=== PATIENT | male | born 1940 | race Caucasian/White ===

== ENCOUNTER 2017-03-08 12:56 | Inpatient (IN) | payer MEDICARE, OTHER ==
[2017-03-08] VITALS (8 sets, daily range): BP systolic 109–124; BP diastolic 62–73
[~2017-03-08] VITALS: Ht 188 cm; Wt 114.4 kg
--- NOTE | 2017-03-08 13:21 | EKG ---
FACILITY: [facility] [place] PATIENT NAME: PANCHO CASON : [id number] MR: [id number] V: [id number] EXAM DATE: ORDERING PHYSICIAN: TREVIN VALENCIA TECHNOLOGIST: Test Reason : Blood Pressure : / mmHG Vent. Rate : 076 BPM Atrial Rate : 288 BPM P-R Int : 000 ms QRS Dur : 122 ms QT Int : 468 ms P-R-T Axes : 000 -84 064 degrees QTc Int : 526 ms Atrial fibrillation Left axis deviation Right bundle branch block Abnormal ECG When compared with ECG of 17-DEC-2016 11:17, Relatively unchanged, QTc is more prolonged Confirmed by MARGRET SCHULTE ([id number]) on 03/08/2017 5:11:13 PM Referred By: Confirmed By:MARGRET SCHULTE
--- NOTE | 2017-03-08 13:28 | ER Report ---
History and Physical Time Seen By MD: 13:00 Hx. of Stated Complaint: PATIENT WAS AT [facility] AND STATES THAT HE HAS BEEN SICK SINCE 03/05/17 HPI/ROS CHIEF COMPLAINT: Shortness of breath HISTORY OF PRESENT ILLNESS: Patient is a 76-year-old male who presents the ED with complaint of shortness of breath for the past 2 weeks. He was seen at the urgent care today and had some labs and imaging completed. He states that he was told that he had a low blood count and was advised to go to the emergency department. He states that he has had trouble with GI bleeding in the past. He states that his last episode was 4 months ago and was given 4 units of blood at that time per patient. 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 He also has a history of atrial fibrillation. He states that he has had a mild cough recently but states that the shortness of breath has been bothering him. He denies any chest pain. He has not noted any abdominal pain. He states he has not noted any black or bloody bowel movements currently. He states that he did notice blood in his stool previously with his GI bleeds. Patient states that he recently had his INR checked and it was normal at that time. He states that he has had issues with it being too high in the past. He states that he has been feeling weak recently. REVIEW OF SYSTEMS: Constitutional: No fever, no chills. Eyes: No discharge. ENT: No sore throat. Cardiovascular: No chest pain, no palpitations. Respiratory: See history of present illness. Gastrointestinal: See history of present illness. No abdominal pain, nausea, vomiting, diarrhea, constipation. Genitourinary: No hematuria. Musculoskeletal: No back pain. Skin: No rashes. Neurological: No headache. Allergies: Coded Allergies: propafenone (Verified Allergy, Unknown, 03/08/17) Home Meds Active Scripts Albuterol Sulfate 90 Mcg/Act (PROAIR HFA 90 MCG/ACT) 8.5 Gm Hfa.aer.ad, 1-2 PUFF IH 3-4XD, #3 INHALER 2 Refills Prov:CARLEY SPIVEY MD 02/08/17 Benazepril Hcl (BENAZEPRIL HCL) 10 Mg Tab, 1 TAB PO QDAY, #90 TAB 4 Refills Prov:CARLEY SPIVEY MD 12/28/16 Pantoprazole Sodium (PANTOPRAZOLE SODIUM) 40 Mg Tablet.dr, 40 MG PO QDAY for protect GI tract, #30 TAB Prov:NEHEMIAS POMPA MD 10/25/16 Reported Medications Carvedilol (CARVEDILOL) 25 Mg Tablet, 25 MG PO BID, #10 TAB 02/07/17 Warfarin Sodium (WARFARIN SODIUM) 5 Mg Tablet, 2.5 MG PO DAILY, TAB 12/17/16 Amiodarone Hcl (AMIODARONE HCL) 200 Mg Tablet, 200 MG PO DAILY 02/21/16 Oxygen (Oxygen) 2 L Inha, 3 L INH QHS 3 L at hs, and prn day at 2L 01/08/10 Reviewed Nurses Notes: Yes Old Medical Records Reviewed: Yes Hx Smoking: Yes (40yrs ago) Smoking Status: Former Smoker Exposure to Second Hand Smoke?: No Hx Substance Use Disorder: No Hx Alcohol Use: No Constitutional Vital Sign - Last 24 Hours 03/08/17 03/08/17 03/08/17 03/08/17 13:02 13:04 13:26 13:30 Temp 98.4 Pulse 74 67 Resp 24 20 B/P (MAP) 110/60 (77) 110/60 111/59 (76) Pulse Ox 94 97 O2 Delivery Room Air 03/08/17 03/08/17 03/08/17 03/08/17 13:56 14:00 14:26 14:30 Pulse 62 65 Resp 18 16 B/P (MAP) 123/67 (85) 130/70 (90) Pulse Ox 95 93 03/08/17 03/08/17 14:35 15:00 Pulse 68 Resp 18 B/P (MAP) 119/79 (92) Pulse Ox 92 Physical Exam General Appearance: The patient is alert, has no immediate need for airway protection and no signs of toxicity. Patient appears to be in no acute distress. Eyes: Pupils equal and round no pallor or injection. ENT, Mouth: Mucous membranes are moist. Respiratory: There are no retractions, lungs are clear to auscultation. Cardiovascular: Irregularly irregular. Normal rate. Gastrointestinal: Abdomen is soft and non tender, no masses, bowel sounds normal in all 4 quadrants. Neurological: Cranial nerves II through XII intact. Skin: Warm and dry, no rashes. Musculoskeletal: Neck is supple non tender. Extremities are nontender, nonswollen and have full range of motion. DIFFERENTIAL DIAGNOSIS: After history and physical exam differential diagnosis was considered for shortness of breath including but not limited to pulmonary infectious process, COPD, asthma, pulmonary embolus and congestive heart failure. Medical Decision Making Data Points Laboratory Hematology Test 03/08/17 00:00 03/08/17 13:20 03/08/17 13:43 Stool Occult Blood (IFOB) Positive (NEGATIVE) B-Type Natriuretic Peptide 859 pg/ml (0-100) Influenza Type A Antigen Negative (NEGATIVE) Influenza Type B Antigen Positive (NEGATIVE) Chemistry Test 03/08/17 00:00 03/08/17 13:20 03/08/17 13:43 Stool Occult Blood (IFOB) Positive (NEGATIVE) B-Type Natriuretic Peptide 859 pg/ml (0-100) Influenza Type A Antigen Negative (NEGATIVE) Influenza Type B Antigen Positive (NEGATIVE) EKG/Imaging EKG Interpretation 12 lead EKG: Rhythm: Atrial fibrillation, rate [address] segments: No acute ST changes identified. Monitor Interpretation: Atrial Fibrillation ED Course/Re-evaluation ED Course Reviewed all labs from urgent care. Patient does have a hemoglobin of 7.3. Review chest x-ray read from urgent care. States the patient is cardiomegaly with no acute infiltrates. He does have a CD with him as well. He does have an EKG from urgent care that reveals a rate controlled fibrillation. Will obtain an EKG, type and screen, Hemoccult, influenza screening. 03/08/2017 4:01:05 pm - initially discussed patient with Dr. Méndez, hospitalist about admission. However, there is concern the patient may need a IVC filter given his recurrent GI bleeds on Coumadin and history of PE. Discussed patient with hospitalist at [facility], Dr. Mai, who discussed that they would likely not putting IVC filter and the patient given his medical history and it appears it is anticoagulation is primarily for age fibrillation at this point. Discussed patient again with Dr. Méndez, hospitalist, who will accept patient under his care. Decision to Disposition Date: Mar 08, 2017 Decision to Disposition Time: 16:06 Depart Departure Latest Vital Signs Vital Signs Date Time Temp Pulse Resp B/P (MAP) Pulse Ox O2 Delivery O2 Flow Rate FiO2 03/08/17 15:00 119/79 (92) 03/08/17 14:35 68 18 92 03/08/17 13:04 98.4 Room Air Impression: Primary Impression: Anemia Additional Impressions: Afib Warfarin-induced coagulopathy Condition: Improved Disposition: Admitted from ER [employer]/PA consult with MD: Verbally MD Consult Note: Dr. Méndez, Hospitalist Dr. Funez, Hospitalist at [facility] Problem Qualifiers Primary Impression: Anemia Anemia type: unspecified type Qualified Codes: D64.9 - Anemia, unspecified Additional Impressions: Afib Atrial fibrillation type: chronic Qualified Codes: I48.2 - Chronic atrial fibrillation TREVIN VALENCIA PA-C Mar 08, 2017 13:28
[2017-03-08] MEDS ORDERED: FUROSEMIDE 20 MG TAB PO ONE (17:00)
[2017-03-08] MEDS ORDERED: PHYTONADIONE 10 MG/ML AMP SC ONE (17:25)
[2017-03-08] MEDS ORDERED: NS(*) 0.9% 500 ML BAG 500 ML ONE (17:32)
--- NOTE | 2017-03-08 18:09 | History & Physical ---
History of Present Illness History of Present Illness 76yo male with h/o GI bleed, atrial fibrillation, reduced EF HF, and remote PE who came to the ER from Urgent care for concern of anemia. He reports for the last 4 months, he has progressively become more SOB. He has been getting light headed with standing for the last couple of weeks. He has noticed LE edema for the last week. 3 days ago, he developed a cough. Today, his thought he had influenza, so she brought him to the ER. He denies cp/orthopnea/f/c/ diarrhea/nausea/vomiting/melena/bloody stools. In the last 20 months, he has been admitted 4 times for GI bleed and has received multiple infusions of FFP and 12 units of blood. His last admission was in September. He had EGD/ colonoscopy done at that time and there was no active bleeding, but old blood in the colon likely from sigmoid diverticulosis bleed. He was discharged off of all anticoagulation, but was restarted as an outpatient. He reportedly has had one PE in the past, possibly in 2006, but we have no studies consistent with that nor does MCR (the ER talked to the Hospitalist there). It appears that he is on warfarin for the atrial fibrillation. History Problems: (1) HTN (hypertension) Status: Chronic (2) COPD (chronic obstructive pulmonary disease) Status: Chronic (3) GERD (gastroesophageal reflux disease) Status: Chronic (4) H/O ventricular tachycardia Status: Chronic (5) Atrial fibrillation Status: Chronic (6) Obesity (BMI 30-39.9) Status: Chronic (7) Hx of pulmonary embolus Status: Chronic (8) Chronic renal disease, stage 3, moderately decreased glomerular filtration rate (GFR) between 30-59 mL/min/1.73 square meter Status: Chronic (9) History of automatic internal cardiac defibrillator (AICD) Status: Chronic (10) History of radiofrequency ablation procedure for cardiac arrhythmia Status: Chronic (11) Hx of transurethral resection of prostate Status: Resolved (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 (13) History of cholecystectomy Status: Resolved (14) GIB (gastrointestinal bleeding) Status: Acute Home Meds Active Scripts Benazepril Hcl (BENAZEPRIL HCL) 10 Mg Tab, 1 TAB PO QDAY, #90 TAB 4 Refills Prov:CARLEY SPIVEY MD 12/28/16 Pantoprazole Sodium (PANTOPRAZOLE SODIUM) 40 Mg Tablet.dr, 40 MG PO QDAY for protect GI tract, #30 TAB Prov:NEHEMIAS POMPA MD 10/25/16 Reported Medications Carvedilol (CARVEDILOL) 25 Mg Tablet, 25 MG PO BID, #10 TAB 02/07/17 Warfarin Sodium (WARFARIN SODIUM) 5 Mg Tablet, 2.5 MG PO DAILY, TAB 12/17/16 Amiodarone Hcl (AMIODARONE HCL) 200 Mg Tablet, 200 MG PO DAILY 02/21/16 Oxygen (Oxygen) 2 L Inha, 3 L INH QHS 3 L at hs, and prn day at 2L 01/08/10 Discontinued Scripts Albuterol Sulfate 90 Mcg/Act (PROAIR HFA 90 MCG/ACT) 8.5 Gm Hfa.aer.ad, 1-2 PUFF IH 3-4XD, #3 INHALER 2 Refills Prov:CARLEY SPIVEY MD 02/08/17 Allergies: Coded Allergies: propafenone (Verified Allergy, Unknown, 03/08/17) Patient History: FH: RI (myocardial infarction) FATHER MOTHER FH: diabetes mellitus BROTHER OR SISTER BROTHER OR SISTER BROTHER OR SISTER BROTHER OR SISTER BROTHER OR SISTER BROTHER OR SISTER CHILD Hx Smoking: Yes (40yrs ago) Smoking Status: Former Smoker Exposure to Second Hand Smoke?: No Caffeine Intake: Coffee Caffeine/Cups Per Day: 1 cup per day Hx Alcohol Use: No Hx Substance Use Disorder: No Review of Systems All Systems Reviewed/Normal: Yes, Except as Noted Exam Vital Signs Vital Signs Date Time Temp Pulse Resp B/P (MAP) Pulse Ox O2 Delivery O2 Flow Rate FiO2 03/08/17 16:40 99 Nasal Cannula 3.0 03/08/17 16:35 98.2 72 22 124/68 (86) General Appearance: Alert, Awake, No Acute Distress Neuro: No Gross deficits Eyes: PERRLA ENT: Moist Mucous Membranes Cardiovascular: Regular Rate and Rhythm Respiratory: Other (Diffuse upper airway sounds with insp/exp. Moving air fairly well to the bases.) GI: Abd Soft and Non-Tender Extremities: Edema (1-2+ pitting to knees) Integumentary: No Jaundice, No Cyanosis Medical Decision Making Data Points Item Value Date Time B-Type Natriuretic Peptide 859 pg/ml H 03/08/17 1320 Troponin I < 0.012 ng/ml 03/08/17 1012 Total Bilirubin 0.7 mg/dl 03/08/17 1012 Aspartate Amino Transf (AST/SGOT) 27 U/L 03/08/17 1012 Alanine Aminotransferase (ALT/SGPT) 39 U/L 03/08/17 1012 Alkaline Phosphatase 109 U/L 03/08/17 1012 Creatinine 1.20 mg/dl 03/08/17 1012 Creatinine 1.30 mg/dl H 12/27/16 1250 Hemoglobin 7.3 g/dL *L 03/08/17 1012 Hemoglobin 9.7 g/dL L 12/17/16 1108 Mean Corpuscular Volume 67.4 fL L 03/08/17 1012 Mean Corpuscular Volume 74.5 fL L 12/17/16 1108 Platelet Count 354 K/uL 12/17/16 1108 Platelet Count 291 K/uL 03/08/17 1012 Prothromb Time International Ratio 2.33 03/08/17 1012 D-Dimer Quantitative (PE/DVT) 0.31 ug/ml 03/08/17 1012 Stool Occult Blood (IFOB) Positive H 03/08/17 0000 Influenza Type A Antigen Negative 03/08/17 1343 Influenza Type B Antigen Positive 03/08/17 1343 EKG / Imaging EKG Interpretation Vent. Rate : 076 BPM Atrial Rate : 288 BPM P-R Int : 000 ms QRS Dur : 122 ms QT Int : 468 ms P-R-T Axes : 000 -84 064 degrees QTc Int : 526 ms Atrial fibrillation Left axis deviation Right bundle branch block Abnormal ECG When compared with ECG of 17-DEC-2016 11:17, Relatively unchanged, QTc is more prolonged Confirmed by MARGRET SCHULTE ([id number]) on 03/08/2017 5:11:13 PM Imaging CXR - done at Urgent Care and reported to be with acute abnormality. Trying to get the disc loaded into our system. Assessment and Plan Problems: (1) GIB (gastrointestinal bleeding) Status: Acute Assessment & Plan: He presented with progressive SOB over about 4 months, CHF exacerbation and a Hgb of 7.3. He has had 4 admissions for GI bleed in the last 20 months. He has received multiple infusions of FFP to reverse warfarin and has received 12 units of PRBC. His last admission in September, he had an EGD/ colonoscopy that showed no active bleeding, but old blood in the colon that was thought to be from a diverticular bleed. He was discharged off of warfarin, but was restarted as an outpatient. His INR is therapeutic today. He has no evidence of active bleeding, but continues to have microcytosis and is occult blood positive. He is on warfarin for atrial fibrillation, CHF and possibly for a remote PE (2006?). He has too high risk of bleeding complications to continue on warfarin. He will be given vitamin K, and transfused 2 units of PRBC. (2) CHF exacerbation Status: Acute Assessment & Plan: He presented with 4 months of progressive SOB, a week of LE edema, and a BNP that is increased from baseline. He has a EF of 40-45% from (per Dr. Spivey's clinic note). It is likely exacerbated by the anemia. He will get a dose of IV Lasix now and he will get it twice day. Will place him on a heart failure diet and check daily weights. BNP in the morning. Continue Coreg and Benazepril. (3) Influenza Status: Acute Assessment & Plan: He has had a cough for 3 days prior to admission. Influenza B positive. He will be started on renally dosed Tamiflu and placed in contact isolation. (4) COPD (chronic obstructive pulmonary disease) Status: Chronic Assessment & Plan: He has much upper airway sounds on exam secondary to having influenza. He is breathing fairly comfortably. Will not give steroids at this time, but will try DuoNeb and Albuterol prn. (5) Anemia Status: Acute Assessment & Plan: See above. (6) Chronic atrial fibrillation Status: Chronic Assessment & Plan: Rate controlled. He is chronically in atrial fibrillation. He is on amiodarone and Coreg, which will be continued. (7) Hx of pulmonary embolus Status: Chronic Assessment & Plan: See above. (8) History of automatic internal cardiac defibrillator (AICD) Status: Chronic (9) Chronic renal disease, stage 3, moderately decreased glomerular filtration rate (GFR) between 30-59 mL/min/1.73 square meter Status: Chronic (10) Obesity (BMI 30-39.9) Status: Chronic Copies to: ALAINA VALENCIA MD Venous Thromboembolism Antithrombotics Is Pt On Any Antithrombotics?: Yes Exam Sepsis Risk: No Definite Risk Problem Qualifiers (1) CHF exacerbation: Congestive heart failure type: systolic Qualified Codes: I50.23 - Acute on chronic systolic (congestive) heart failure (2) Anemia: Anemia type: unspecified type Qualified Codes: D64.9 - Anemia, unspecified MARGRET SCHULTE MD Mar 08, 2017 18:09
[2017-03-08] MEDS: ALBUTEROL/IPRATROPIUM 3 ML NEB NEB SCH (18:25)
--- NOTE | 2017-03-08 18:33 | Pharmacy Note ---
Pharmacy Note Date Provider Notified: Mar 08, 2017 Time Provider Notified: 17:30 Provider Notified: DR SCHULTE Note: Called and spoke to Dr Schulte about the order for 10mg SC vitamin K. I mentioned that this dose is usually reserved for patients with a major bleed/ INR over 10 and the results could be that the patient is warfarin resistant for a long period (more than [address] Schulte said that the patient was not currently bleeding but he was concerned that this would be an issue if not treated, and this patient will not be going back on warfarin therapy so resistance is not a concern. Dose was confirmed and no changes made. MARIA DE JESUS ROMERO Mar 08, 2017 18:33
[2017-03-08] MEDS: OSELTAMIVIR PHOS 30 MG CAP PO SCH (20:36)
[2017-03-08] MEDS: CARVEDILOL 25 MG TABLET PO SCH (20:36)
[2017-03-09 03:29] VITALS: BP 101/76
[2017-03-09] MEDS: FUROSEMIDE 20 MG/2 ML VIAL IVP SCH ×2 (05:00→14:20)
[2017-03-09] MEDS: ALBUTEROL/IPRATROPIUM 3 ML NEB NEB SCH ×3 (05:35→17:00)
[2017-03-09 05:59] LABS: PLATELET COUNT, AUTOMATED 246 K/uL (150-450)
[2017-03-09 06:09] LABS: INR 2.26
[2017-03-09 07:17] VITALS: BP 127/74
[2017-03-09] MEDS: PANTOPRAZOLE SOD 40 MG TABEC PO SCH (08:55)
[2017-03-09] MEDS: BENAZEPRIL HCL 10 MG TAB PO SCH (08:55)
[2017-03-09] MEDS: CARVEDILOL 25 MG TABLET PO SCH ×2 (08:55→21:00)
[2017-03-09] MEDS: AMIODARONE 200 MG TAB PO SCH (08:55)
[2017-03-09] MEDS: OSELTAMIVIR PHOS 30 MG CAP PO SCH ×2 (08:55→21:04)
[2017-03-09 09:24] VITALS: Ht 188 cm; Wt 114.4 kg
[2017-03-09] MEDS ORDERED: PHYTONADIONE 5 MG TAB PO ONE (10:15)
[2017-03-09 10:41] VITALS: BP 113/67
--- NOTE | 2017-03-09 11:24 | RADIOLOGY IMAGING REPORT ---
FACILITY: [facility] [place] PATIENT NAME: Shaggy Roland : 1940 MR: [id number] V: [id number] EXAM DATE: ORDERING PHYSICIAN: LEIGH ANN POMPA TECHNOLOGIST: Location: [facility] Patient: Shaggy Roland : 1940 Visit/Account:[id number] Date of Sevice: 03/09/2017 Exam type: CHEST SINGLE AP History: Cough/dyspnea/wheezing Comparison: December 17, 2016. Findings: Cardiac silhouette is moderately enlarged but unchanged. There is a cardiac pacemaker/AICD device pr esent. Surgical clips present left upper quadrant abdomen. There is thick band of consolidation in the right lung base consistent with atelectasis. Left lung base not ideally visualized due to overla pping soft tissue. There appears to been overall increase in interstitial markings of the lungs whic h could be related to interstitial pneumonia versus pulmonary edema. IMPRESSION: 1. Cardiomegaly unchanged Overall increase in the interstitial markings throughout the lungs which may be secondary to intersti tial pneumonia versus pulmonary edema Thick band of atelectasis in the right lung base Report Dictated By: Luma Mirza MD at 03/09/2017 11:18 AM Report E-Signed By: Luma Mirza MD at 03/09/2017 11:20 AM WSN:[email or web address]
--- NOTE | 2017-03-09 14:02 | Hospitalist Progress Note ---
Subjective Progress Notes Subjective He reports some persistent congestion/cough/wheezes. Physical Exam Vital Signs Date Time Temp Pulse Resp B/P (MAP) Pulse Ox O2 Delivery O2 Flow Rate FiO2 03/09/17 11:21 64 16 03/09/17 11:08 93 High-Flow Nasal Cannula 3.0 03/09/17 10:41 97.9 113/67 (82) Intake and Output 03/10/17 07:00 Intake Total 480 ml Output Total 240 ml Balance 240 ml Intake Oral 480 ml Output Urine Total 240 ml # Voids 3 # Bowel Movements 1 General Appearance: Alert, Awake Neuro: No Gross deficits ENT: Oropharynx Clear Cardiovascular: Other (Irregular distant tones) Respiratory: Other (few rales at bases with scattered rhonchi and bilateral expiratory wheezes) Chest: No Tenderness GI: Soft and Non-Tender (obese) Extremities: Warm, Perfused, Edema (1+ both LE) Psych: Alert & Oriented X3 Result Diagram: 03/09/17 0540 03/09/17 0540 Monitor Interpretation: Atrial Fibrillation Assessment and Plan Problems: (1) GIB (gastrointestinal bleeding) Status: Acute Assessment & Plan: He presented with progressive SOB over about 4 months, probable CHF exacerbation, heme positive stool, and a Hgb of 7.3. He has had 4 admissions for GI bleed in the last 20 months. He has received multiple infusions of FFP to reverse warfarin and has now received 14 units of PRBC. His last admission in September, he had an EGD/colonoscopy that showed no active bleeding, but old blood in the colon that was thought to be from a diverticular bleed. He was discharged off of warfarin, but was restarted as an outpatient. His INR was therapeutic at time of admit. He has no evidence of active/ongoing bleeding, but continues to have microcytosis and is occult blood positive. He is on warfarin for atrial fibrillation, CHF, and possibly for a remote PE (2006 - but no documentation of this). He has a very high risk of bleeding complications if he remains on warfarin. He has been given vitamin K 10mg SQ, but INR is still 2.25. Will give an additional 5mg PO today. Watch INR. I don' t believe he should be continued on warfarin at this point. Will plan on keeping him off warfarin and allow him to discuss this with his primary care physician and cardiology. (2) CHF exacerbation Status: Acute Assessment & Plan: He presented with 4 months of progressive SOB, a week of LE edema, and a BNP that is increased from baseline. He has a EF of 40-45% from (per Dr. Edmonds's clinic note). It is likely exacerbated by the anemia. He will continue on IV Lasix 20mg twice a day. He is on a heart failure diet and daily weights. Continue Coreg and Benazepril. (3) Influenza Status: Acute Assessment & Plan: He has had a cough for 3 days prior to admission. Influenza B positive. He is on Tamiflu 30mg BID and in contact isolation. (4) COPD (chronic obstructive pulmonary disease) Status: Chronic Assessment & Plan: He has much upper airway sounds on exam secondary to having influenza and possibly fluid status. Will try DuoNeb and Albuterol prn. Will also diurese as he tolerates. (5) Anemia Status: Acute Assessment & Plan: See above. (6) Chronic atrial fibrillation Status: Chronic Assessment & Plan: Rate controlled. He is chronically in atrial fibrillation. He is on amiodarone and Coreg. Warfarin will be stopped as noted above. (7) Hx of pulmonary embolus Status: Chronic Assessment & Plan: No documentation can be found regarding this. If he has had only one episode, he would be given a trial off warfarin. The warfarin will be stopped as noted above. (8) History of automatic internal cardiac defibrillator (AICD) Status: Chronic (9) Chronic renal disease, stage 3, moderately decreased glomerular filtration rate (GFR) between 30-59 mL/min/1.73 square meter Status: Chronic Assessment & Plan: Creatinine is stable at 1.2 today. (10) Obesity (BMI 30-39.9) Status: Chronic Exam Sepsis Risk: No Definite Risk Problem Qualifiers (1) CHF exacerbation: Congestive heart failure type: systolic Qualified Codes: I50.23 - Acute on chronic systolic (congestive) heart failure (2) Anemia: Anemia type: unspecified type Qualified Codes: D64.9 - Anemia, unspecified LEIGH ANN POMPA MD Mar 09, 2017 14:02
[2017-03-09 16:08] VITALS: BP 112/67
[2017-03-09 19:54] VITALS: BP 104/62
[2017-03-09] MEDS: ALBUTEROL 2.5 MG/3 ML NEB NEB PRN (21:18)
[2017-03-10 02:11] VITALS: BP 80/53
[2017-03-10] MEDS: ALBUTEROL/IPRATROPIUM 3 ML NEB NEB SCH ×3 (05:07→17:04)
[2017-03-10 05:54] LABS: PLATELET COUNT, AUTOMATED 222 K/uL (150-450)
[2017-03-10 06:01] LABS: INR 1.49
[2017-03-10 08:05] VITALS: BP 104/57
[2017-03-10] MEDS: AMIODARONE 200 MG TAB PO SCH (08:30)
[2017-03-10] MEDS: CARVEDILOL 25 MG TABLET PO SCH ×2 (08:30→21:10)
[2017-03-10] MEDS: PANTOPRAZOLE SOD 40 MG TABEC PO SCH (08:30)
[2017-03-10] MEDS: OSELTAMIVIR PHOS 30 MG CAP PO SCH ×2 (08:30→21:10)
[2017-03-10] MEDS: BENAZEPRIL HCL 10 MG TAB PO SCH (08:30)
--- NOTE | 2017-03-10 11:21 | Antimicrobial Stewardship ---
Antimicrobial Stewardship MD Service: Hospitalist Indications: Other (GIB) Antimicrobial Allergies None known Antimicrobial Used Tamiflu 30 mg PO twice daily started upon admission. Duration of Therapy: 5 Days Start Date: Mar 08, 2017 Height (Calculated Centimeters: [phone] Weight (Calculated Kilograms): 117.027 Tolerating Oral Fluids: Yes Able to Absorb PO Meds: Yes Taking Other Meds PO: Yes Afebrile > 24 hrs: Yes Comments Influenza A positive; 03/08/17 Tamiflu 30 mg PO twice daily, renal dosing. ERROL PEREZ Mar 10, 2017 11:21
--- NOTE | 2017-03-10 14:09 | Medical Nutrition Therapy ---
Nutrition Anthropometrics Height (Inches): 74.00 Height (Calculated Centimeters: [phone] Weight (Pounds): 258 Weight (Calculated Kilograms): 117.027 BMI Calculated: 33.38 Jose Nutrition Score: Adequate Jose Nutrition Risk Score: 18 Dietary Referral Nutrition Risk Factors: Nutrition Risk Comment: Physical Findings Physical Appearance: Obese BMI 30-39 Skin Appearance Skin Appearance: Edema Edema Location Modifier: Both Edema Location: Lower Extremity Type of Edema: Degree of Edema: 1+ Gastrointestinal Symptoms GI Symtoms: Blood in Stool Tube Present: Bowel Sounds: Recent Bowel Pattern: Stool Characteristics: Nutritional Diagnosis Nutritional Risk Acuity 2: CHF w/Complication Nutritional Risk Acuity 3: GI Bleed Past Medical History: CHF, HTN, GERD, CKD- stage 3, COPD, cholecystectomy, a-fib Nutritional Acuity: 2-Moderate Nutrition Diagnosis: Decreased Nutrient Needs, Altered GI Function Nutrition Etiology: Physiological Causes Nutrition Problem/Etiology/Sym: Altered GI function r/t hx of GI bleed AEB occult blood positive and microcytosis Decreased Na/fluid needs r/t CHF AEB 2+ pitting LE edema Energy Requirement: 2220 (Cheek Leonard Adj.) Protein Requirement: 117 (1 g/kg) Fluid Requirement: 2000 (20 ml/kg) Diet Type: CHF Diet, Fluid Restricted Nutrition Intervention: Cont diet as ordered, Encourage intake Drug: Diuretics Drug/Nutrition Recommendations: Check Serum K+ Nutrition Monitoring & Eval RD Patient Assessment Time: [address] Assessment Type: RD Assessment Patient Nutrition Acuity: 2-Moderate Follow Up Date: Mar 13, 2017 Nutritional Comment: 03/09 Pt admitted for CHF complication and SOB x 2 weeks. Pt has hx of GI bleeds. No current evidence of an active bleed but he is occult blood positive. Also found to have influenza B. Pt is taking K+ depleting diuretic. K+ WNL. Other notable labs include very low Hgb 8.9, Hct 29, alb 2.9, and Ca 7.3. Pt has had chronic use of warfarin which has been discontinued due to risk of GI bleed. Pt on CHF diet/fluid restriction. Pt had 100% of reg portion dinner last night. Will continue to monitor labs, intake, etc. 03/10 Pt changed to KELSEY with 100% intake of regular portions. Pt down 2 lbs. in one day. Most likley due to lasix and edema resolving from 2+ to 1+. Lasix was discontinued this morning. Notable labs include low H/H, total pro 6.2, and alb 2.6. Will continue to monitor labs, intakes, etc. JOSÉ BOLAÑOS Mar 10, 2017 12:18
[2017-03-10 14:42] VITALS: BP 116/67
--- NOTE | 2017-03-10 16:51 | Hospitalist Progress Note ---
Subjective Progress Notes Subjective The patient denies new complaints. Physical Exam Vital Signs Date Time Temp Pulse Resp B/P (MAP) Pulse Ox O2 Delivery O2 Flow Rate FiO2 03/10/17 14:42 98.0 70 20 116/67 (83) 92 Nasal Cannula 3.5 Intake and Output 03/11/17 07:00 Intake Total 1240 ml Output Total 850 ml Balance 390 ml Intake Oral 1240 ml Output Urine Total 850 ml General Appearance: Alert, Awake, No Acute Distress Neuro: No Gross deficits Cardiovascular: Other (Irregularly irregular.) Respiratory: Clear to Auscultation GI: Soft and Non-Tender Extremities: Warm, Perfused Psych: Appropriate Mood & Affect Result Diagram: 03/10/1752303/10/17523 Monitor Interpretation: Atrial Fibrillation Assessment and Plan Problems: (1) GIB (gastrointestinal bleeding) Status: Acute Assessment & Plan: He presented with progressive SOB over about 4 months, probable CHF exacerbation, heme positive stool, and a Hgb of 7.3. He has had 4 admissions for GI bleed in the last 20 months. He has received multiple infusions of FFP to reverse warfarin and has now received 14 units of PRBC. His last admission in September, he had an EGD/colonoscopy that showed no active bleeding, but old blood in the colon that was thought to be from a diverticular bleed. He was discharged off of warfarin, but was restarted as an outpatient. His INR was therapeutic at time of admit. He has no evidence of active/ongoing bleeding, but continues to have microcytosis and is occult blood positive. He is on warfarin for atrial fibrillation, CHF, and possibly for a remote PE (2006 - but no documentation of this). He has a very high risk of bleeding complications if he remains on warfarin. He was given vitamin K 10mg SQ, but INR was still 2.25. He was given an additional 5mg PO 03/09. INR today 1.49. Will plan on keeping him off warfarin and allow him to discuss this with his primary care physician and cardiology. (2) CHF exacerbation Status: Acute Assessment & Plan: He presented with 4 months of progressive SOB, a week of LE edema, and a BNP that is increased from baseline. He has a EF of 40-45% from (per Dr. Edmonds's clinic note). It is likely exacerbated by the anemia. He will continue on IV Lasix 20mg twice a day. He is on a heart failure diet and daily weights. Continue Coreg and Benazepril. (3) Influenza Status: Acute Assessment & Plan: He has had a cough for 3 days prior to admission. Influenza B positive. He is on Tamiflu 30mg BID and in contact isolation. (4) COPD (chronic obstructive pulmonary disease) Status: Chronic Assessment & Plan: He has much upper airway sounds on exam secondary to having influenza and possibly fluid status. Will try DuoNeb and Albuterol prn. Will also diurese as he tolerates. (5) Anemia Status: Acute Assessment & Plan: See above. Hgb 8.7 today. Repeat tomorrow. May need to transfuse an additional 2 units if this does not improve. Will start iron. (6) Chronic atrial fibrillation Status: Chronic Assessment & Plan: Rate controlled. He is chronically in atrial fibrillation. He is on amiodarone and Coreg. Warfarin will be stopped as noted above. (7) Hx of pulmonary embolus Status: Chronic Assessment & Plan: No documentation can be found regarding this. If he has had only one episode, he would be given a trial off warfarin. The warfarin will be stopped as noted above. (8) History of automatic internal cardiac defibrillator (AICD) Status: Chronic (9) Chronic renal disease, stage 3, moderately decreased glomerular filtration rate (GFR) between 30-59 mL/min/1.73 square meter Status: Chronic Assessment & Plan: Creatinine is stable at 1.2 today. (10) Obesity (BMI 30-39.9) Status: Chronic Time Spent on Plan of Care: < 30 min Exam Sepsis Risk: No Definite Risk Problem Qualifiers (1) CHF exacerbation: Congestive heart failure type: systolic Qualified Codes: I50.23 - Acute on chronic systolic (congestive) heart failure (2) Anemia: Anemia type: unspecified type Qualified Codes: D64.9 - Anemia, unspecified NEHEMIAS POMPA MD Mar 10, 2017 16:51
[2017-03-10] MEDS: POLYSACCHARIDE IRON COM 150 MG PO SCH (17:01)
[2017-03-10 21:09] VITALS: BP 117/66
[2017-03-11] VITALS (11 sets, daily range): BP systolic 111–133; BP diastolic 54–86
[2017-03-11] MEDS: ALBUTEROL/IPRATROPIUM 3 ML NEB NEB SCH ×3 (05:29→17:29)
[2017-03-11 06:43] LABS: PLATELET COUNT, AUTOMATED 250 K/uL (150-450)
[2017-03-11 07:06] LABS: INR 1.15
[2017-03-11] MEDS: OSELTAMIVIR PHOS 30 MG CAP PO SCH ×2 (08:31→21:18)
[2017-03-11] MEDS: PANTOPRAZOLE SOD 40 MG TABEC PO SCH (08:33)
[2017-03-11] MEDS: AMIODARONE 200 MG TAB PO SCH (08:34)
[2017-03-11] MEDS: BENAZEPRIL HCL 10 MG TAB PO SCH (08:34)
[2017-03-11] MEDS: CARVEDILOL 25 MG TABLET PO SCH ×2 (08:35→21:17)
[2017-03-11] MEDS: POLYSACCHARIDE IRON COM 150 MG PO SCH ×2 (08:35→16:20)
--- NOTE | 2017-03-11 08:55 | Hospitalist Progress Note ---
Subjective Progress Notes Subjective Feeling better today. Physical Exam Vital Signs Date Time Temp Pulse Resp B/P (MAP) Pulse Ox O2 Delivery O2 Flow Rate FiO2 03/11/17 08:21 95 High-Flow Nasal Cannula 5.0 03/11/17 06:50 97.7 70 24 120/70 (87) General Appearance: Alert, Awake, No Acute Distress, Afebrile Neuro: No Gross deficits Eyes: PERRLA Cardiovascular: Other (Irregularly irregular.) Respiratory: Other (Scattered rhonchi with wheezing. Better air movement today. ) Extremities: Warm, Perfused Psych: Appropriate Mood & Affect Result Diagram: 03/11/1761003/11/17610 Monitor Interpretation: Atrial Fibrillation Assessment and Plan Problems: (1) GIB (gastrointestinal bleeding) Status: Acute Assessment & Plan: He presented with progressive SOB over about 4 months, probable CHF exacerbation, heme positive stool, and a Hgb of 7.3. He has had 4 admissions for GI bleed in the last 20 months. He has received multiple infusions of FFP to reverse warfarin and has now received 14 units of PRBC. His last admission in September, he had an EGD/colonoscopy that showed no active bleeding, but old blood in the colon that was thought to be from a diverticular bleed. He was discharged off of warfarin, but was restarted as an outpatient. His INR was therapeutic at time of admit. He has no evidence of active/ongoing bleeding, but continues to have microcytosis and is occult blood positive. He is on warfarin for atrial fibrillation, CHF, and possibly for a remote PE (2006 - but no documentation of this). He has a very high risk of bleeding complications if he remains on warfarin. He was given vitamin K 10mg SQ, but INR was still 2.25. He was given an additional 5mg PO 03/09. INR today 1.1. Will plan on keeping him off warfarin and allow him to discuss this with his primary care physician and cardiology. (2) CHF exacerbation Status: Acute Assessment & Plan: He presented with 4 months of progressive SOB, a week of LE edema, and a BNP that is increased from baseline. He has a EF of 40-45% from (per Dr. Edmonsd's clinic note). It is likely exacerbated by the anemia. He will continue on IV Lasix 20mg twice a day. He is on a heart failure diet and daily weights. Continue Coreg and Benazepril. (3) Influenza Status: Acute Assessment & Plan: He has had a cough for 3 days prior to admission. Influenza B positive. He is on Tamiflu 30mg BID and in contact isolation. (4) COPD (chronic obstructive pulmonary disease) Status: Chronic Assessment & Plan: He has much upper airway sounds on exam secondary to having influenza and possibly fluid status. Will try DuoNeb and Albuterol prn. Will also diurese as he tolerates. (5) Anemia Status: Acute Assessment & Plan: See above. Hgb decreased to 8.5 today. Will transfuse an additional 2 units. (6) Chronic atrial fibrillation Status: Chronic Assessment & Plan: Rate controlled. He is chronically in atrial fibrillation. He is on amiodarone and Coreg. Warfarin will be stopped as noted above. (7) Hx of pulmonary embolus Status: Chronic Assessment & Plan: No documentation can be found regarding this. If he has had only one episode, he would be given a trial off warfarin. The warfarin will be stopped as noted above. (8) History of automatic internal cardiac defibrillator (AICD) Status: Chronic (9) Chronic renal disease, stage 3, moderately decreased glomerular filtration rate (GFR) between 30-59 mL/min/1.73 square meter Status: Chronic Assessment & Plan: Creatinine is stable at 1.1 today. (10) Obesity (BMI 30-39.9) Status: Chronic (11) Hypocalcemia Status: Acute Assessment & Plan: Corrected calcium is a bit low. Will replace. Time Spent on Plan of Care: < 30 min Exam Sepsis Risk: No Definite Risk Problem Qualifiers (1) CHF exacerbation: Congestive heart failure type: systolic Qualified Codes: I50.23 - Acute on chronic systolic (congestive) heart failure (2) Anemia: Anemia type: unspecified type Qualified Codes: D64.9 - Anemia, unspecified NEHEMIAS POMPA MD Mar 11, 2017 08:55
[2017-03-11] MEDS ORDERED: CALCIUM CL 100 MG/1 ML SYR 1,000 MG in NS(*) 0.9% 100 ML BAG 100 ML IVPB ONE (09:30)
[2017-03-11] MEDS ORDERED: NS(*) 0.9% 500 ML BAG 500 ML IV PRN (10:00)
[2017-03-12] MEDS: ALBUTEROL 2.5 MG/3 ML NEB NEB PRN ×3 (02:03→20:42)
[2017-03-12 03:21] VITALS: BP 117/68
[2017-03-12] MEDS ORDERED: FUROSEMIDE 20 MG/2 ML VIAL IVP ONE (03:35)
[2017-03-12] MEDS: ALBUTEROL/IPRATROPIUM 3 ML NEB NEB SCH ×3 (05:40→18:01)
[2017-03-12 06:05] LABS: PLATELET COUNT, AUTOMATED 221 K/uL (150-450)
[2017-03-12 07:17] VITALS: BP 116/63
[2017-03-12] MEDS: OSELTAMIVIR PHOS 30 MG CAP PO SCH ×2 (08:24→21:15)
[2017-03-12] MEDS: AMIODARONE 200 MG TAB PO SCH (08:24)
[2017-03-12] MEDS: PANTOPRAZOLE SOD 40 MG TABEC PO SCH (08:24)
[2017-03-12] MEDS: CARVEDILOL 25 MG TABLET PO SCH ×2 (08:24→21:15)
[2017-03-12] MEDS: POLYSACCHARIDE IRON COM 150 MG PO SCH ×2 (08:24→16:21)
[2017-03-12] MEDS: BENAZEPRIL HCL 10 MG TAB PO SCH (08:24)
[2017-03-12] MEDS: FUROSEMIDE 20 MG/2 ML VIAL IVP SCH ×2 (10:27→13:50)
--- NOTE | 2017-03-12 10:34 | Hospitalist Progress Note ---
Subjective Progress Notes Subjective He got SOB o/n and was given Lasix for concern of volume overload related to the transfusion. No reported cp. Still a bit SOB. Physical Exam Vital Signs Date Time Temp Pulse Resp B/P (MAP) Pulse Ox O2 Delivery O2 Flow Rate FiO2 03/12/17 08:17 92 High-Flow Nasal Cannula 3.0 03/12/17 08:09 68 03/12/17 08:06 20 03/12/17 07:17 97.8 116/63 (80) Intake and Output 03/13/17 07:00 Output Total 550 ml Balance -550 ml Output Urine Total 550 ml General Appearance: Alert, Awake, No Acute Distress Respiratory: Clear to Auscultation Extremities: Edema (trace pitting in shins bilaterally) Result Diagram: 03/12/1752703/12/17527 Monitor Interpretation: Atrial Fibrillation Assessment and Plan Problems: (1) GIB (gastrointestinal bleeding) Status: Acute Assessment & Plan: He presented with progressive SOB over about 4 months, probable CHF exacerbation, heme positive stool, and a Hgb of 7.3. He has had 4 admissions for GI bleed in the last 20 months. He has received multiple infusions of FFP to reverse warfarin and has now received 14 units of PRBC. His last admission in September, he had an EGD/colonoscopy that showed no active bleeding, but old blood in the colon that was thought to be from a diverticular bleed. He was discharged off of warfarin, but was restarted as an outpatient. His INR was therapeutic at time of admit. He has no evidence of active/ongoing bleeding, but continues to have microcytosis and is occult blood positive. He is on warfarin for atrial fibrillation, CHF, and possibly for a remote PE (2006 - but no documentation of this). He has a very high risk of bleeding complications if he remains on warfarin. He was given vitamin K 10mg SQ, but INR was still 2.25. He was given an additional 5mg PO 03/09. INR 1.15, most recently. Will plan on keeping him off warfarin and allow him to discuss this with his primary care physician and cardiology. (2) CHF exacerbation Status: Acute Assessment & Plan: He presented with 4 months of progressive SOB, a week of LE edema, and a BNP that is increased from baseline. He has a EF of 40-45% from (per Dr. Edmonds's clinic note). It is likely exacerbated by the anemia and then blood transfusions. He will be restarted on IV Lasix 20mg twice a day. He is on a heart failure diet and daily weights. Continue Coreg and Benazepril. (3) Influenza Status: Acute Assessment & Plan: He has had a cough for 3 days prior to admission. Influenza B positive. He is on Tamiflu 30mg BID and in contact isolation. (4) COPD (chronic obstructive pulmonary disease) Status: Chronic Assessment & Plan: He has much upper airway sounds on exam secondary to having influenza and possibly fluid status. Will try DuoNeb and Albuterol prn. Will also diurese as he tolerates. (5) Anemia Status: Acute Assessment & Plan: See above. He was transfused 2 units of PRBC on 03/08 and then again on 03/11. Hgb improved. Will follow. (6) Chronic atrial fibrillation Status: Chronic Assessment & Plan: Rate controlled. He is chronically in atrial fibrillation. He is on amiodarone and Coreg. Warfarin will be stopped as noted above. (7) Hx of pulmonary embolus Status: Chronic Assessment & Plan: No documentation can be found regarding this. If he has had only one episode, he would be given a trial off warfarin. The warfarin will be stopped as noted above. (8) History of automatic internal cardiac defibrillator (AICD) Status: Chronic (9) Chronic renal disease, stage 3, moderately decreased glomerular filtration rate (GFR) between 30-59 mL/min/1.73 square meter Status: Chronic Assessment & Plan: Creatinine is stable at 1.1 today. (10) Obesity (BMI 30-39.9) Status: Chronic (11) Hypocalcemia Status: Acute Assessment & Plan: Corrected calcium is a bit low. He was given IV replacement on 03/11. Will follow. Exam Sepsis Risk: No Definite Risk Problem Qualifiers (1) CHF exacerbation: Congestive heart failure type: systolic Qualified Codes: I50.23 - Acute on chronic systolic (congestive) heart failure (2) Anemia: Anemia type: unspecified type Qualified Codes: D64.9 - Anemia, unspecified MARGRET SCHULTE MD Mar 12, 2017 10:34
[2017-03-12 10:59] VITALS: BP 115/72
[2017-03-12 15:16] VITALS: BP 122/87
[2017-03-12 20:26] VITALS: BP 119/74
[2017-03-12 23:38] VITALS: BP 116/70
[2017-03-13] MEDS: ALBUTEROL/IPRATROPIUM 3 ML NEB NEB SCH ×3 (05:27→17:28)
[2017-03-13 06:10] LABS: PLATELET COUNT, AUTOMATED 242 K/uL (150-450)
[2017-03-13 07:14] VITALS: BP 122/74
[2017-03-13] MEDS: ALBUTEROL 2.5 MG/3 ML NEB NEB PRN ×3 (07:23→14:19)
[2017-03-13] MEDS: PANTOPRAZOLE SOD 40 MG TABEC PO SCH (08:27)
[2017-03-13] MEDS: POLYSACCHARIDE IRON COM 150 MG PO SCH ×2 (08:27→17:34)
[2017-03-13] MEDS: OSELTAMIVIR PHOS 30 MG CAP PO SCH ×2 (08:27→20:37)
[2017-03-13] MEDS: AMIODARONE 200 MG TAB PO SCH (08:30)
[2017-03-13] MEDS: BENAZEPRIL HCL 10 MG TAB PO SCH (08:30)
[2017-03-13] MEDS: CARVEDILOL 25 MG TABLET PO SCH ×2 (08:31→20:37)
--- NOTE | 2017-03-13 09:41 | RADIOLOGY IMAGING REPORT ---
FACILITY: [facility] PATIENT NAME: Shaggy Roland : 1940 MR: [id number] V: [id number] EXAM DATE: ORDERING PHYSICIAN: NEHEMIAS POMPA TECHNOLOGIST: Location: [facility] [place] Patient: Shaggy Roland : 1940 Visit/Account:[id number] Date of Sevice: 03/13/2017 Exam type: CHEST SINGLE AP History: Increased shortness of breath, influenza Comparison: 03/09/2017. Findings: There is consolidation at left lung base and small left effusion. Mild consolidation at right lung ba se is noted. Overall aeration is not significantly changed.. No appreciable pneumothorax. Heart is enlarged. Pacemaker device is noted. The osseous structures demonstrates a mild compression deformity is in the thoracic spine. IMPRESSION: 1. No significant interval change from 03/09/2017. There remains bibasilar consolidation greater on th e left with a small left effusion. Report Dictated By: Raz Bowden MD at 03/13/2017 9:34 AM Report E-Signed By: Raz Bowden MD at 03/13/2017 9:36 AM WSN:[id number]
[2017-03-13] MEDS: FUROSEMIDE 40 MG TAB PO SCH ×2 (09:49→14:15)
--- NOTE | 2017-03-13 10:11 | Hospitalist Progress Note ---
Subjective Progress Notes Subjective The patient remains short of breath. Physical Exam Vital Signs Date Time Temp Pulse Resp B/P (MAP) Pulse Ox O2 Delivery O2 Flow Rate FiO2 03/13/17 09:31 71 03/13/17 09:31 99 High-Flow Nasal Cannula 4.0 03/13/17 09:29 20 03/13/17 07:14 97.5 122/74 (90) Intake and Output 03/14/17 07:00 Intake Total 500 ml Output Total 600 ml Balance -100 ml Intake Oral 500 ml Output Urine Total 600 ml General Appearance: Alert, Awake, Other (Moderate increased work of breathing noted.) Neuro: No Gross deficits Eyes: PERRLA Cardiovascular: Other (Irregularly irregular.) Respiratory: Other (Moderate respiatory distress. BS throughout. Basilar rales.) GI: Soft and Non-Tender Extremities: Warm, Perfused, Other (Trace edema both LE.) Integumentary: Skin Intact without Lesion / Mass Psych: Appropriate Mood & Affect Result Diagram: 03/13/1755403/13/17554 Item Value Date Time B-Type Natriuretic Peptide 674 pg/ml H 03/13/1755 Imaging FACILITY: [facility] PATIENT NAME: Shaggy Roland : 1940 MR: [id number] V: [id number] EXAM DATE: ORDERING PHYSICIAN: NEHEMIAS POMPA TECHNOLOGIST: Location: [facility] [place] Patient: Shaggy Roland : 1940 Visit/Account:[id number] Date of Sevice: 03/13/2017 Exam type: CHEST SINGLE AP History: Increased shortness of breath, influenza Comparison: 03/09/2017. Findings: There is consolidation at left lung base and small left effusion. Mild consolidation at right lung base is noted. Overall aeration is not significantly changed.. No appreciable pneumothorax. Heart is enlarged. Pacemaker device is noted. The osseous structures demonstrates a mild compression deformity is in the thoracic spine. IMPRESSION: 1. No significant interval change from 03/09/2017. There remains bibasilar consolidation greater on the left with a small left effusion. Report Dictated By: Raz Bowden MD at 03/13/2017 9:34 AM Report E-Signed By: Raz Bowden MD at 03/13/2017 9:36 AM WSN:[id number] Monitor Interpretation: Atrial Fibrillation Assessment and Plan Problems: (1) GIB (gastrointestinal bleeding) Status: Acute Assessment & Plan: He presented with progressive SOB over about 4 months, probable CHF exacerbation, heme positive stool, and a Hgb of 7.3. He has had 4 admissions for GI bleed in the last 20 months. He has received multiple infusions of FFP to reverse warfarin and has now received 14 units of PRBC. His last admission in September, he had an EGD/colonoscopy that showed no active bleeding, but old blood in the colon that was thought to be from a diverticular bleed. He was discharged off of warfarin, but was restarted as an outpatient. His INR was therapeutic at time of admit. He has no evidence of active/ongoing bleeding, but continues to have microcytosis and is occult blood positive. He is on warfarin for atrial fibrillation, CHF, and possibly for a remote PE (2006 - but no documentation of this). He has a very high risk of bleeding complications if he remains on warfarin. He was given vitamin K 10mg SQ, but INR was still 2.25. He was given an additional 5mg PO 03/09. INR 1.15, most recently. Will plan on keeping him off warfarin. (2) CHF exacerbation Status: Acute Assessment & Plan: He presented with 4 months of progressive SOB, a week of LE edema, and a BNP that is increased from baseline. He has a EF of 40-45% from (per Dr. Edmonds's clinic note). It is likely exacerbated by the anemia and then blood transfusions. He will be restarted on IV Lasix 20mg twice a day. He is on a heart failure diet and daily weights. Continue Coreg and Benazepril. (3) Influenza Status: Acute Assessment & Plan: He has had a cough for 3 days prior to admission. Influenza B positive. He is on Tamiflu 30mg BID and in contact isolation. (4) COPD (chronic obstructive pulmonary disease) Status: Chronic Assessment & Plan: He has much upper airway sounds on exam secondary to having influenza and possibly fluid status. Will try DuoNeb and Albuterol prn. Will also diurese as he tolerates. (5) Anemia Status: Acute Assessment & Plan: See above. He was transfused 2 units of PRBC on 03/08 and then again on 03/11. Hgb improved. Will follow. (6) Chronic atrial fibrillation Status: Chronic Assessment & Plan: Rate controlled. He is chronically in atrial fibrillation. He is on amiodarone and Coreg. Warfarin will be stopped as noted above. (7) Hx of pulmonary embolus Status: Chronic Assessment & Plan: No documentation can be found regarding this. If he has had only one episode, he would be given a trial off warfarin. The warfarin will be stopped as noted above. (8) History of automatic internal cardiac defibrillator (AICD) Status: Chronic (9) Chronic renal disease, stage 3, moderately decreased glomerular filtration rate (GFR) between 30-59 mL/min/1.73 square meter Status: Chronic Assessment & Plan: Creatinine is stable at 1.1 today. (10) Obesity (BMI 30-39.9) Status: Chronic (11) Hypocalcemia Status: Acute Assessment & Plan: Corrected calcium was a bit low. He was given IV replacement on 03/11. Will follow. Time Spent on Plan of Care: < 30 min Exam Sepsis Risk: No Definite Risk Problem Qualifiers (1) CHF exacerbation: Congestive heart failure type: systolic Qualified Codes: I50.23 - Acute on chronic systolic (congestive) heart failure (2) Anemia: Anemia type: unspecified type Qualified Codes: D64.9 - Anemia, unspecified NEHEMIAS POMPA MD Mar 13, 2017 10:11
--- NOTE | 2017-03-13 10:38 | Medical Nutrition Therapy ---
Nutrition Anthropometrics Height (Inches): 74.00 Height (Calculated Centimeters: 187.191119 Weight (Pounds): 255 Weight (Calculated Kilograms): 115.666 BMI Calculated: 33.38 Jose Nutrition Score: Adequate Jose Nutrition Risk Score: 18 Dietary Referral Nutrition Risk Factors: Nutrition Risk Comment: Physical Findings Physical Appearance: Obese BMI 30-39 Skin Appearance Skin Appearance: Edema Edema Location Modifier: Both Edema Location: Lower Extremity Type of Edema: Degree of Edema: 1+ Gastrointestinal Symptoms GI Symtoms: Blood in Stool Tube Present: Bowel Sounds: Recent Bowel Pattern: Stool Characteristics: Nutritional Diagnosis Nutritional Risk Acuity 2: CHF w/Complication Nutritional Risk Acuity 3: GI Bleed Past Medical History: CHF, HTN, GERD, CKD- stage 3, COPD, cholecystectomy, a-fib Nutritional Acuity: 2-Moderate Nutrition Diagnosis: Decreased Nutrient Needs, Altered GI Function Nutrition Etiology: Physiological Causes Nutrition Problem/Etiology/Sym: Altered GI function r/t hx of GI bleed AEB occult blood positive and microcytosis Decreased Na/fluid needs r/t CHF AEB 2+ pitting LE edema Energy Requirement: 2220 (Cheek Adger Adj.) Protein Requirement: 117 (1 g/kg) Fluid Requirement: 2000 (20 ml/kg) Diet Type: CHF Diet, Fluid Restricted Nutrition Intervention: Cont diet as ordered, Encourage intake Drug: Diuretics Nutrition Monitoring & Eval Nutrition Goals: Eat 75-100% Meal RD Patient Assessment Time: [address] Assessment Type: RD Re-Assessment Patient Nutrition Acuity: 2-Moderate Follow Up Date: Mar 18, 2017 Nutritional Comment: 03/09 Pt admitted for CHF complication and SOB x 2 weeks. Pt has hx of GI bleeds. No current evidence of an active bleed but he is occult blood positive. Also found to have influenza B. Pt is taking K+ depleting diuretic. K+ WNL. Other notable labs include very low Hgb 8.9, Hct 29, alb 2.9, and Ca 7.3. Pt has had chronic use of warfarin which has been discontinued due to risk of GI bleed. Pt on CHF diet/fluid restriction. Pt had 100% of reg portion dinner last night. Will continue to monitor labs, intake, etc. 03/10 Pt changed to KELSEY with 100% intake of regular portions. Pt down 2 lbs. in one day. Most likley due to lasix and edema resolving from 2+ to 1+. Lasix was discontinued this morning. Notable labs include low H/H, total pro 6.2, and alb 2.6. Will continue to monitor labs, intakes, etc. 03/13 Pt cont good intake of 100% of small to regular portions. Pt has lost 5# (2%) since admission with edema declining to 1+ pitting LE. Pt is on a K+ depleting duiretic and K+ is WNR. Will cont to monitor and encourage intake. SANNA COX Mar 13, 2017 10:38
[2017-03-13 11:20] VITALS: BP 112/94
[2017-03-13] MEDS ORDERED: ONDANSETRON 4 MG ODT TABDP SL PRN (13:20)
--- NOTE | 2017-03-13 13:38 | EKG ---
FACILITY: [facility] [place] PATIENT NAME: PANCHO CASON : [id number] MR: [id number] V: [id number] EXAM DATE: ORDERING PHYSICIAN: NEHEMIAS POMPA TECHNOLOGIST: Arash Decker Reason : Blood Pressure : / mmHG Vent. Rate : 082 BPM Atrial Rate : 074 BPM P-R Int : 000 ms QRS Dur : 114 ms QT Int : 426 ms P-R-T Axes : 000 263 -05 degrees QTc Int : 497 ms Atrial fibrillation with premature ventricular or aberrantly conducted complexes Right bundle branch block Abnormal ECG QT interval has decreased. Confirmed by NEHEMIAS SALINAS ([id number]) on 03/13/2017 4:17:58 PM Referred By: Confirmed By:NEHEMIAS SALINAS
[2017-03-13 13:44] LABS: PLATELET COUNT, AUTOMATED 273 K/uL (150-450)
[2017-03-13] MEDS ORDERED: PROMETHAZINE HCL(*) 25 MG SUPP PR PRN (13:45)
--- NOTE | 2017-03-13 14:30 | Miscellaneous Provider Note ---
Miscellaneous Provider Note Note The patient developed nausea and vomiting. EKG and troponin were ordered. There were no ischemic changes. Troponin was negative. The patient also passed several black tarry stools. Hemoglobin was repeated at 1330 and actually has increased since am lab at 0500. Of note, his WBC has increased. Suspect his darks stools are from his recent GI bleed. No BRB has been noted. VSS. With an acute jump in his WBC, he may be developing gastroenteritis. Will monitor. NEHEMIAS POMPA MD Mar 13, 2017 14:30
--- NOTE | 2017-03-13 15:03 | Miscellaneous Provider Note ---
Miscellaneous Provider Note Note The patient states his cough is better today. He has not felt feverish. Recheck of patient exam shows hyperactive bowel sounds. Nontender abdomen to palpation. Lung exam reveals scattered rhonchi with some wheezing. He does have mild increased work of breathing. Repeat CXR basically unchanged. His WBC is up but etiology unclear. Could have a gastroenteritis. Will continue to monitor. NEHEMIAS POMPA MD Mar 13, 2017 15:03
[2017-03-13 16:01] VITALS: BP 124/78
[2017-03-14] MEDS: ALBUTEROL/IPRATROPIUM 3 ML NEB NEB SCH ×3 (05:37→17:18)
[2017-03-14 06:09] LABS: PLATELET COUNT, AUTOMATED 238 K/uL (150-450)
[2017-03-14 08:31] VITALS: BP 107/61
[2017-03-14] MEDS: BENAZEPRIL HCL 10 MG TAB PO SCH (08:41)
[2017-03-14] MEDS: OSELTAMIVIR PHOS 30 MG CAP PO SCH ×2 (08:42→20:30)
[2017-03-14] MEDS: CARVEDILOL 25 MG TABLET PO SCH ×2 (08:42→20:29)
[2017-03-14] MEDS: AMIODARONE 200 MG TAB PO SCH (08:42)
[2017-03-14] MEDS: PANTOPRAZOLE SOD 40 MG TABEC PO SCH (08:42)
[2017-03-14] MEDS: POLYSACCHARIDE IRON COM 150 MG PO SCH ×2 (08:42→17:13)
[2017-03-14] MEDS: FUROSEMIDE 40 MG TAB PO SCH ×2 (08:42→14:32)
[2017-03-14 11:17] VITALS: BP 107/70
--- NOTE | 2017-03-14 12:33 | Hospitalist Progress Note ---
Subjective Progress Notes Subjective This patient was admitted for a GI bleed. He had no acute events overnight. Patient Complains of: Cardiovascular: No: Chest Pain Respiratory: No: Shortness of Breath Physical Exam Vital Signs Date Time Temp Pulse Resp B/P (MAP) Pulse Ox O2 Delivery O2 Flow Rate FiO2 03/14/17 11:17 97.1 72 18 107/70 (82) 93 High-Flow Nasal Cannula 6.0 Intake and Output 03/15/17 07:00 Intake Total 440 ml Output Total 175 ml Balance 265 ml Intake Oral 440 ml Output Urine Total 175 ml Neuro: No Gross deficits Cardiovascular: Regular Rate and Rhythm Respiratory: Clear to Auscultation Extremities: No Edema Integumentary: No Cyanosis Result Diagram: 03/14/17 0539 03/14/17 0539 Item Value Date Time Influenza Type B Antigen Positive 03/08/17 1343 Item Value Date Time Gram Stain - Final Resulted 03/13/17 1645 Stool Monitor Interpretation: Atrial Fibrillation Assessment and Plan Problems: (1) GIB (gastrointestinal bleeding) Status: Acute Assessment & Plan: He presented with progressive SOB over about 4 months. He was found to be anemic with a Hgb of 8.5 and his stools were heme positive. He does have a history of multiple admissions for GI blood loss. His last upper and lower endoscopy was in 09/2016, and this did not locate an active source of bleeding. We have discontinued and reversed his warfarin. He has also received 4 units of red cells during this admission. His Hgb is now stable. (2) Anemia Status: Acute Assessment & Plan: He required 2 units of red cells on 03/08 and an additional 2 units on 03/11. His Hgb has since been stable. (3) CHF exacerbation Status: Acute Assessment & Plan: He did have increased shortness of breath and edema on admission. We did treat him with several doses of IV Lasix, but have now converted him to scheduled oral dosing. His last documented ejection fraction was from a myocardial stress test in 2011, and it was 43% at that time. He has not had an echocardiogram performed in our system. His weight is decreased approximately 5Kg since admission. He is already on chronic treatment with carvedilol and benazepril. Lasix has been started as above. An echocardiogram has been ordered. (4) COPD exacerbation Assessment & Plan: He is not on chronic treatment, but had increased wheezing during this admission. We did start him on DuoNebs and albuterol. (5) Influenza Status: Acute Assessment & Plan: He did test positive for influenza B. We have been treating him with Tamiflu. (6) Chronic atrial fibrillation Status: Chronic Assessment & Plan: He is on chronic treatment with amiodarone and carvedilol. He was on chronic anticoagulation with warfarin, but this has been discontinued and should not be restarted secondary to his recurrent issues with GI bleeding. (7) Hx of pulmonary embolus Status: Chronic Assessment & Plan: We could find no documentation of this. His warfarin has been discontinued as above. (8) History of automatic internal cardiac defibrillator (AICD) Status: Chronic (9) Chronic renal disease, stage 3, moderately decreased glomerular filtration rate (GFR) between 30-59 mL/min/1.73 square meter Status: Chronic (10) Obesity (BMI 30-39.9) Status: Chronic (11) Hypocalcemia Status: Acute Assessment & Plan: Resolved with supplementation. Exam Sepsis Risk: No Definite Risk Problem Qualifiers (1) Anemia: Anemia type: unspecified type Qualified Codes: D64.9 - Anemia, unspecified (2) CHF exacerbation: Congestive heart failure type: systolic Qualified Codes: I50.23 - Acute on chronic systolic (congestive) heart failure EUGENIO MENDEZ DO Mar 14, 2017 12:33
[2017-03-14 14:29] VITALS: BP 107/66
[2017-03-14 18:58] VITALS: BP 91/59
[2017-03-15] MEDS: ALBUTEROL/IPRATROPIUM 3 ML NEB NEB SCH ×3 (05:44→17:28)
[2017-03-15 08:16] VITALS: BP 115/74
[2017-03-15] MEDS: PANTOPRAZOLE SOD 40 MG TABEC PO SCH (08:56)
[2017-03-15] MEDS: POLYSACCHARIDE IRON COM 150 MG PO SCH ×2 (08:56→16:51)
[2017-03-15] MEDS: CARVEDILOL 25 MG TABLET PO SCH ×2 (08:56→20:55)
[2017-03-15] MEDS: AMIODARONE 200 MG TAB PO SCH (08:57)
[2017-03-15] MEDS: BENAZEPRIL HCL 10 MG TAB PO SCH (08:57)
[2017-03-15] MEDS: FUROSEMIDE 40 MG TAB PO SCH ×2 (08:57→13:17)
[2017-03-15 11:05] VITALS: BP 108/71
[2017-03-15] MEDS ORDERED: IRO150 PO (14:15)
--- NOTE | 2017-03-15 14:38 | Hospitalist Progress Note ---
Subjective Progress Notes Subjective No cp/sob. Overall, feeling better. Physical Exam Vital Signs Date Time Temp Pulse Resp B/P (MAP) Pulse Ox O2 Delivery O2 Flow Rate FiO2 03/15/17 11:14 81 18 03/15/17 11:08 93 High-Flow Nasal Cannula 4.0 03/15/17 11:05 97.9 108/71 (83) Intake and Output 03/16/17 07:00 Intake Total 1200 ml Output Total 695 ml Balance 505 ml Intake Oral 1200 ml Output Urine Total 695 ml # Voids 4 General Appearance: Alert, Awake, No Acute Distress Cardiovascular: Regular Rate and Rhythm (distant heart tones, regular), Other Respiratory: Clear to Auscultation (coarse intermittent insp/exp BS throughout bilaterally. Good air movement to the bases) Result Diagram: 03/14/17 0539 03/14/17 05 Monitor Interpretation: Atrial Fibrillation Assessment and Plan Problems: (1) GIB (gastrointestinal bleeding) Status: Acute Assessment & Plan: He presented with progressive SOB over about 4 months, probable CHF exacerbation, heme positive stool, and a Hgb of 7.3. He has had 4 admissions for GI bleed in the last 20 months. He has received multiple infusions of FFP to reverse warfarin and has now received 14 units of PRBC. His last admission in September, he had an EGD/colonoscopy that showed no active bleeding, but old blood in the colon that was thought to be from a diverticular bleed. He was discharged off of warfarin, but was restarted as an outpatient. His INR was therapeutic at time of admit. He has no evidence of active/ongoing bleeding, but continues to have microcytosis and is occult blood positive. He is on warfarin for atrial fibrillation, CHF, and possibly for a remote PE (2006 - but no documentation of this). He has a very high risk of bleeding complications if he remains on warfarin. He was given vitamin K 10mg SQ, but INR was still 2.25. He was given an additional 5mg PO 03/09. INR 1.15, most recently. Will plan on keeping him off warfarin. (2) Anemia Status: Acute Assessment & Plan: Secondary to occult blood loss from GI source. See above. He required 2 units of red cells on 03/08 and an additional 2 units on 03/11. His Hgb has since been stable. He is on iron supplementation. (3) CHF exacerbation Status: Acute Assessment & Plan: He presented with 4 months of progressive SOB, a week of LE edema, and a BNP that is increased from baseline. He has a EF of 40-45% from (per Dr. Edmonds's clinic note). It is likely exacerbated by the anemia and then blood transfusions. He has received IV doses of Lasix after transfusions with relief of SOB. Now on oral Lasix twice daily. He is on a heart failure diet and daily weights. He is already on chronic treatment with carvedilol and benazepril. Echo pending. Likely, can be discharged tomorrow. (4) COPD exacerbation Assessment & Plan: He is not on chronic treatment, but had increased wheezing during this admission. We did start him on DuoNebs and albuterol. (5) Influenza Status: Acute Assessment & Plan: He did test positive for influenza B. He has finished a course of Tamiflu. (6) Chronic atrial fibrillation Status: Chronic Assessment & Plan: He is on chronic treatment with amiodarone and carvedilol. He was on chronic anticoagulation with warfarin, but this has been discontinued and should not be restarted secondary to his recurrent issues with GI bleeding. (7) Hx of pulmonary embolus Status: Chronic Assessment & Plan: We could find no documentation of this. His warfarin has been discontinued as above. (8) History of automatic internal cardiac defibrillator (AICD) Status: Chronic (9) Chronic renal disease, stage 3, moderately decreased glomerular filtration rate (GFR) between 30-59 mL/min/1.73 square meter Status: Chronic (10) Obesity (BMI 30-39.9) Status: Chronic (11) Hypocalcemia Status: Acute Assessment & Plan: Resolved with supplementation. Exam Sepsis Risk: No Definite Risk Problem Qualifiers (1) Anemia: Anemia type: unspecified type Qualified Codes: D64.9 - Anemia, unspecified (2) CHF exacerbation: Congestive heart failure type: systolic Qualified Codes: I50.23 - Acute on chronic systolic (congestive) heart failure MARGRET SCHULTE MD Mar 15, 2017 14:38
[2017-03-15 15:01] VITALS: BP 117/68
[2017-03-15 19:41] VITALS: BP 107/66
[2017-03-16] MEDS: ALBUTEROL/IPRATROPIUM 3 ML NEB NEB SCH ×2 (05:40→12:00)
[2017-03-16 05:52] VITALS: BP 116/74
[2017-03-16 06:15] LABS: PLATELET COUNT, AUTOMATED 256 K/uL (150-450)
[2017-03-16 07:15] VITALS: BP 108/69
[2017-03-16] MEDS: BENAZEPRIL HCL 10 MG TAB PO SCH (08:19)
[2017-03-16] MEDS: PANTOPRAZOLE SOD 40 MG TABEC PO SCH (08:24)
[2017-03-16] MEDS: CARVEDILOL 25 MG TABLET PO SCH (08:24)
[2017-03-16] MEDS: POLYSACCHARIDE IRON COM 150 MG PO SCH (08:25)
[2017-03-16] MEDS: AMIODARONE 200 MG TAB PO SCH (08:25)
[2017-03-16] MEDS: FUROSEMIDE 40 MG TAB PO SCH (08:25)
--- NOTE | 2017-03-16 09:31 | RADIOLOGY IMAGING REPORT ---
FACILITY: [facility] PATIENT NAME: PANCHO CASON : [id number] MR: [id number] V: [id number] EXAM DATE: ORDERING PHYSICIAN: EUGENIO MENDEZ TECHNOLOGIST: Yina Hernandez EXAMINATION:TWO-DIMENSIONAL ECHOCARDIOGRAPH REASON:CONGESTIVE HEART FAILURE. 2D Measurements (normal values in centimeters) LV endLV endRV endVent.LV PostAorticLeftPercent DiastolicSystolicDiastolicSeptumWallRootAtriumShortening (3.5-5.7)(0.9-2.6)(0.6-1.1)(0.6-1.1)(2.0-3.7)(1.9-4.0)(25-35%) [id number]% STROKE VOLUME: 128 mL ESTIMATED EJECTION FRACTION:63% PARASTERNAL LONG AXIS: Left atrium appears to be severely enlarged. Right ventricle is normal in size. The left ventricle also appears to be mildly enlarged. The aortic valve appears to open normally. The patient is reported to be in atrial flutter. Color examination of the mitral valve reveals a moderate amount of mitral insufficiency. Color examination of the aortic valve was unremarkable. Aortic valve is sclerotic but appears to open normally. Color examination of the tricuspid valve reveals a moderate amount of tricuspid insufficiency in this view. PARASTERNAL SHORT AXIS: Aortic valve is trileaflet in configuration and appears to open normally. The patient is in atrial flutter. No thrombi are noted but the left atrial appendage is not seen. There is a defibrillator / pacemaker wire seen in the right sided heart chambers. Color examination of the tricuspid valve reveals a moderate amount of tricuspid insufficiency. There is flattening along the interventricular septum. The overall left ventricular ejection fraction appears to be normal. No specific wall motion abnormalities are noted. APICAL FOUR AND TWO CHAMBER: Both atrium appear to be enlarged. The left ventricle also appears to be enlarged. Pacemaker / defibrillator wire seen in the right sided heart chambers. Color examination of the tricuspid valve reveals a moderate amount of tricuspid insufficiency. The tricuspid regurgitation V-max is measured at 3.92 m/sec. Estimated right atrial pressure is 8 mmHg. Aortic valve area was measured within normal range at 1.7 cm2. Mitral valve area measured low at 1.3 cm2. This could be due to the fact the patient is in atrial flutter. Left atrial volume is severely increased at 78 ml/m2. Right atrial volume is also severely increased at 37.5 ml/m2. No thrombi are noted in any of the chambers but the left atrial appendage is not seen. Color examination of the mitral valve reveals moderate to borderline severe amount of mitral insufficiency present. Mitral regurgitation volume is 79 mL. Regurgitant fraction is 16% and the effective regurgitant orifice is 0.49. SUBCOSTAL VIEW: Not able to be obtained reliably. OVERALL IMPRESSION: 1. Normal left ventricular ejection fraction measured at 63%. We were unable to accurately characterize the diastolic function as the patient is in atrial flutter. No thrombi were noted but the left atrial appendage is not seen. 2. Mild enlargement of the right ventricle, severe enlargement of the left atrium, and severe enlargement of the right atrium. 3. No wall motion abnormalities were noted. 4. A trileaflet aortic valve with a valve area of 1.7 cm2 with a dimensionless index of 0.6. Mitral valve area appears to be decreased at 1.3 cm2 indicating possible mitral stenosis but the patient is in atrial flutter which may make this measurement somewhat low. 5. Moderate to borderline severe amount of mitral insufficiency, moderate amount of tricuspid insufficiency with estimated right ventricular systolic pressures of 69 mmHg which does include an estimated right atrial pressure of 8 mmHg indicating severe pulmonary hypertension and increased right ventricular systolic pressures. 6. Trace of pulmonic insufficiency present. 7. There is a defibrillator /pacemaker wire present in the right sided heart chambers. Dictated by: Devon Edmonds M.D. on 03/15/2017 at 17:23 Transcribed by: TANYA on 03/15/2017 at 18:45 Approved by: Devon Edmonds M.D. on 03/16/2017 at 9:29 [facility]
--- NOTE | 2017-03-16 10:09 | Hospitalist Depart ---
Discharge Summary Reason for Hosp/Final Diag: (1) GIB (gastrointestinal bleeding) Status: Acute Hospital Course & Plan: He presented with progressive SOB over about 4 months, probable CHF exacerbation, heme positive stool, and a Hgb of 7.3. He has had 4 admissions for GI bleed in the last 20 months. He has received multiple infusions of FFP to reverse warfarin and has now received 14 units of PRBC in that time. His last admission in September 2016, he had an EGD/colonoscopy that showed no active bleeding, but old blood in the colon that was thought to be from a diverticular bleed. He was discharged off of warfarin, but was restarted as an outpatient. His INR was therapeutic at time of this admit. He had no evidence of active/ongoing bleeding, but continues to have microcytosis and is occult blood positive. He is on warfarin for atrial fibrillation, CHF, and possibly for a remote PE (2006 - but no documentation of this). He has a very high risk of bleeding complications if he remains on warfarin. He was given vitamin K reversal. His INR was 1.15. We will plan on keeping him off warfarin at this point. We did discuss the fact that he does still have the risk of CVA due to his atrial fibrillation, but the risk may be higher from gastrointestinal bleeding at this time. He seems to understand this very well. He will follow up with his primary care physician (Dr. Valencia) and cardiology to discuss all of this as well. (2) Anemia Status: Acute Hospital Course & Plan: Secondary to occult blood loss from GI source. See above. He required 2 units of red cells on 03/08 and an additional 2 units on . His Hgb has since been stable. He is on iron supplementation. (3) CHF exacerbation Status: Acute Hospital Course & Plan: He presented with 4 months of progressive SOB, a week of LE edema, and a BNP that is increased from baseline. He has a EF of 40-45% from 04/16 (per Dr. Spivey's clinic note). It is likely exacerbated by the anemia and then blood transfusions. He has received IV doses of Lasix after transfusions with relief of SOB. Now on oral Lasix twice daily. He is on a heart failure diet and daily weights. He is already on chronic treatment with carvedilol and benazepril. Repeat echocardiogram done during this admission shows an improved EF (63%), but severe pulmonary hypertension and mitral and tricuspid valvular abnormalities as well. (4) COPD exacerbation Hospital Course & Plan: He is not on chronic treatment, but had increased wheezing during this admission. We did start him on DuoNeb and albuterol. (5) Influenza Status: Acute Hospital Course & Plan: He did test positive for influenza B. He has finished a course of Tamiflu. (6) Chronic atrial fibrillation Status: Chronic Hospital Course & Plan: He is on chronic treatment with amiodarone and carvedilol. He was on chronic anticoagulation with warfarin, but this has been discontinued and will not be restarted secondary to his recurrent issues with GI bleeding. He will follow up with his PCP and cardiology to discuss further. (7) Hx of pulmonary embolus Status: Chronic Hospital Course & Plan: We could find no documentation of this. His warfarin has been discontinued as above. (8) History of automatic internal cardiac defibrillator (AICD) Status: Chronic (9) Chronic renal disease, stage 3, moderately decreased glomerular filtration rate (GFR) between 30-59 mL/min/1.73 square meter Status: Chronic (10) Obesity (BMI 30-39.9) Status: Chronic (11) Hypocalcemia Status: Acute Hospital Course & Plan: Resolved with supplementation. Departure Weight (Pounds): 252 Weight (Ounces): 2.0 Result Diagram: 03/16/17 0556 03/16/17 0556 Item Value Date Time Prothrombin Time 26.2 seconds H 03/08/17 1012 Prothromb Time International Ratio 2.33 03/08/17 1012 D-Dimer Quantitative (PE/DVT) 0.31 ug/ml 03/08/17 1012 White Blood Count 6.0 k/uL 03/08/17 1012 Hemoglobin 7.3 g/dL *L 03/08/17 1012 Hematocrit 25.1 % *L 03/08/17 1012 Platelet Count 291 K/uL 03/08/17 1012 White Blood Count 6.1 k/uL 03/11/17 0611 Hemoglobin 8.5 g/dL *L 03/11/17 0611 Hematocrit 28.3 % L 03/11/17 0611 Platelet Count 250 K/uL 03/11/17 0611 White Blood Count 5.5 k/uL 03/14/17 0539 Hemoglobin 10.6 g/dL L 03/14/17 0539 Hematocrit 34.4 % L 03/14/17 0539 Platelet Count 238 K/uL 03/14/17 0539 Sodium Level 140 mmol/L 03/08/17 1012 Potassium Level 4.1 mmol/L 03/08/17 1012 Chloride Level 103 mmol/L 03/08/17 1012 Carbon Dioxide Level 26 mmol/L 03/08/17 1012 Blood Urea Nitrogen 24 mg/dl H 03/08/17 1012 Creatinine 1.20 mg/dl 03/08/17 1012 Glomerular Filtration Rate Calc 58.6 03/08/17 1012 Random Glucose 92 mg/dl 03/08/17 1012 Calcium Level 7.6 mg/dl L 03/08/17 1012 Total Bilirubin 0.7 mg/dl 03/08/17 1012 Aspartate Amino Transf (AST/SGOT) 27 U/L 03/08/17 1012 Alanine Aminotransferase (ALT/SGPT) 39 U/L 03/08/17 1012 Alkaline Phosphatase 109 U/L 03/08/17 1012 Troponin I < 0.012 ng/ml 03/08/17 1012 Total Protein 7.2 gm/dl 03/08/17 1012 Albumin 3.2 g/dl L 03/08/17 1012 B-Type Natriuretic Peptide 859 pg/ml H 03/08/17 1320 Calcium Level 7.0 mg/dl *L 03/11/17 0611 Random Glucose 102 mg/dl 03/11/17 0611 Glomerular Filtration Rate Calc > 60.0 03/11/17 0611 Creatinine 1.10 mg/dl 03/11/17 0611 Blood Urea Nitrogen 17 mg/dl 03/11/17 0611 Carbon Dioxide Level 31 mmol/L H 03/11/17 0611 Chloride Level 101 mmol/L 03/11/17 0611 Potassium Level 4.4 mmol/L 03/11/17 0611 Sodium Level 140 mmol/L 03/11/17 0611 B-Type Natriuretic Peptide 674 pg/ml H 03/13/17 0555 Troponin I < 0.012 ng/ml 03/13/17 1331 B-Type Natriuretic Peptide 689 pg/ml H 03/16/17 0556 Stool Occult Blood (IFOB) Positive H 03/08/17 0000 Clostridium Difficile Toxin A & B Negative 03/13/17 164 Clostridium difficile Antigen Negative 03/13/17 1645 Influenza Type A Antigen Negative 03/08/17 1343 Influenza Type B Antigen Positive 03/08/17 1343 Prothrombin Time 14.8 seconds H 03/11/17 0611 Prothromb Time International Ratio 1.15 03/11/17 0611 [facility] [address] [place] [address] GLADYS BARLOW M.D., DIRECTOR OF LABORATORY SERVICES DOMINIC HINSON M.D., PATHOLOGIST RUN DATE: 03/15/17 Specimen Inquiry Report PAGE 1 RUN TIME: 1003 PATIENT: SHAGGY CASON JR ACCT: [id number] LOC: MED U : [id number] AGE/SX: 76/M ROOM: [facility] REG : 03/08/[address]: MARGRET SCHULTE MD : 1940 BED: 269 DIS : STATUS: ADM IN TLOC: SPEC #: [id number] DEBBI: 03/13/17 STATUS: COMP REQ #: [id number] RECD: 03/13/17-[address]: NEHEMIAS POMPA MD SOURCE: STOOL ENTR: 03/13/17-[address]: [facility]ARG[facility]ULTE [facility] ORDERED: CULT STOOL/GS COMMENTS: Has specimen been collected/obtained? Y Procedure Result Verified GRAM STAIN Final 03/13/17-1859 RARE WHITE BLOOD CELLS MIXED GRAM POS AND NEG BACTERIA CONSISTENT WITH NORMAL MILLER 1+ YEAST STOOL CULTURE Final 03/15/17-1003 NORMAL BOWEL MILLER PRESENT NO PATHOGENS PRESENT Imaging PATIENT NAME: Shaggy Cason : 1940 MR: [id number] V: [id number] EXAM DATE: ORDERING PHYSICIAN: LEIGH ANN POMPA TECHNOLOGIST: [place] [facility] [place]: Shaggy Cason : 1940 Visit/Account:[id number] Date of Sevice: 03/09/2017 Exam type: CHEST SINGLE AP History: Cough/dyspnea/wheezing Comparison: December 17, 2016. Findings: Cardiac silhouette is moderately enlarged but unchanged. There is a cardiac pacemaker/AICD device present. Surgical clips present left upper quadrant abdomen. There is thick band of consolidation in the right lung base consistent with atelectasis. Left lung base not ideally visualized due to overlapping soft tissue. There appears to been overall increase in interstitial markings of the lungs which could be related to interstitial pneumonia versus pulmonary edema. IMPRESSION: 1. Cardiomegaly unchanged Overall increase in the interstitial markings throughout the lungs which may be secondary to interstitial pneumonia versus pulmonary edema Thick band of atelectasis in the right lung base Report Dictated By: Luma Mirza MD at 03/09/2017 11:18 AM Report E-Signed By: Luma Mirza MD at 03/09/2017 11:20 AM WSN:[id number] PATIENT NAME: Shaggy Cason : 1940 MR: [id number] V: [id number] EXAM DATE: [id number] ORDERING PHYSICIAN: NEHEMIAS POMPA TECHNOLOGIST: [place]: [facility] [place] Patient: Shaggy Cason : 1940 Visit/Account:[id number] Date of Sevice: 03/13/2017 Exam type: CHEST SINGLE AP History: Increased shortness of breath, influenza Comparison: 03/09/2017. Findings: There is consolidation at left lung base and small left effusion. Mild consolidation at right lung base is noted. Overall aeration is not significantly changed.. No appreciable pneumothorax. Heart is enlarged. Pacemaker device is noted. The osseous structures demonstrates a mild compression deformity is in the thoracic spine. IMPRESSION: 1. No significant interval change from 03/09/2017. There remains bibasilar consolidation greater on the left with a small left effusion. Report Dictated By: Raz Bowden MD at 03/13/2017 9:34 AM Report E-Signed By: Raz Bowden MD at 03/13/2017 9:36 AM WSN:[id number] PATIENT NAME: SHAGGY CASON : [id number] MR: [id number] V: [id number] EXAM DATE: [id number] ORDERING PHYSICIAN: EUGENIO MENDEZ TECHNOLOGIST: Yina Hernandez EXAMINATION: T WO-DIMENSIONAL ECHOCARDIOGRAPH REASON: CONGESTIVE HEART FAILURE. 2D Measurements (normal values in centimeters) LV end LV end RV end Vent. LV Post Aortic Left Percent Diastolic Systolic Diastolic Septum Wall Root Atrium Shortening (3.5-5.7) (0.9-2.6) (0.6-1.1) (0.6-1.1) (2.0-3.7) (1.9-4.0) (25-35%) 6.3 4.1 2.5 1.1 1.1 3.3 6.1 35% STROKE VOLUME: 128 mL ESTIMATED EJECTION FRACTION: 63% PARASTERNAL LONG AXIS: Left atrium appears to be severely enlarged. Right ventricle is normal in size. The left ventricle also appears to be mildly enlarged. The aortic valve appears to open normally. The patient is reported to be in atrial flutter. Color examination of the mitral valve reveals a moderate amount of mitral insufficiency. Color examination of the aortic valve was unremarkable. Aortic valve is sclerotic but appears to open normally. Color examination of the tricuspid valve reveals a moderate amount of tricuspid insufficiency in this view. PARASTERNAL SHORT AXIS: Aortic valve is trileaflet in configuration and appears to open normally. The patient is in atrial flutter. No thrombi are noted but the left atrial appendage is not seen. There is a defibrillator / pacemaker wire seen in the right sided heart chambers. Color examination of the tricuspid valve reveals a moderate amount of tricuspid insufficiency. There is flattening along the interventricular septum. The overall left ventricular ejection fraction appears to be normal. No specific wall motion abnormalities are noted. APICAL FOUR AND TWO CHAMBER: Both atrium appear to be enlarged. The left ventricle also appears to be enlarged. Pacemaker / defibrillator wire seen in the right sided heart chambers. Color examination of the tricuspid valve reveals a moderate amount of tricuspid insufficiency. The tricuspid regurgitation V-max is measured at 3.92 m/sec. Estimated right atrial pressure is 8 mmHg. Aortic valve area was measured within normal range at 1.7 cm2. Mitral valve area measured low at 1.3 cm2. This could be due to the fact the patient is in atrial flutter. Left atrial volume is severely increased at 78 ml/m2. Right atrial volume is also severely increased at 37.5 ml/m2. No thrombi are noted in any of the chambers but the left atrial appendage is not seen. Color examination of the mitral valve reveals moderate to borderline severe amount of mitral insufficiency present. Mitral regurgitation volume is 79 mL. Regurgitant fraction is 16% and the effective regurgitant orifice is 0.49. SUBCOSTAL VIEW: Not able to be obtained reliably. OVERALL IMPRESSION: 1. Normal left ventricular ejection fraction measured at 63%. We were unable to accurately characterize the diastolic function as the patient is in atrial flutter. No thrombi were noted but the left atrial appendage is not seen. 2. Mild enlargement of the right ventricle, severe enlargement of the left atrium, and severe enlargement of the right atrium. 3. No wall motion abnormalities were noted. 4. A trileaflet aortic valve with a valve area of 1.7 cm2 with a dimensionless index of 0.6. Mitral valve area appears to be decreased at 1.3 cm2 indicating possible mitral stenosis but the patient is in atrial flutter which may make this measurement somewhat low. 5. Moderate to borderline severe amount of mitral insufficiency, moderate amount of tricuspid insufficiency with estimated right ventricular systolic pressures of 69 mmHg which does include an estimated right atrial pressure of 8 mmHg indicating severe pulmonary hypertension and increased right ventricular systolic pressures. 6. Trace of pulmonic insufficiency present. 7. There is a defibrillator /pacemaker wire present in the right sided heart chambers. Dictated by: Devon Spivey M.D. on 03/15/2017 at 17:23 Transcribed by: TANYA on 03/15/2017 at 18:45 Approved by: Devon Spivey M.D. on 03/16/2017 at 9:29 [facility] EKG PATIENT NAME: SHAGGY CASON : [id number] MR: [id number] V: [id number] EXAM DATE: ORDERING PHYSICIAN: TREVIN VALENCIA TECHNOLOGIST: Test Reason : Blood Pressure : / mmHG Vent. Rate : 076 BPM Atrial Rate : 288 BPM P-R Int : 000 ms QRS Dur : 122 ms QT Int : 468 ms P-R-T Axes : 000 -84 064 degrees QTc Int : 526 ms Atrial fibrillation Left axis deviation Right bundle branch block Abnormal ECG When compared with ECG of 17-DEC-2016 11:17, Relatively unchanged, QTc is more prolonged Confirmed by MARGRET SCHULTE ([id number]) on 03/08/2017 5:11:13 PM Referred By: Confirmed By:MARGRET SCHULTE Condition: Improved Discharge: Home Time Spent: > 30 min Discharge Instructions Home Meds Active Scripts Polysaccharide Iron Complex (POLY-IRON) 150 Mg Cap, 150 MG PO BIDBS, #60 CAP Prov:MARGRET SCHULTE MD 03/15/17 Benazepril Hcl (BENAZEPRIL HCL) 10 Mg Tab, 1 TAB PO QDAY, #90 TAB 4 Refills Prov:CARLEY SPIVEY MD 12/28/16 Pantoprazole Sodium (PANTOPRAZOLE SODIUM) 40 Mg Tablet.dr 40 MG PO QDAY for protect GI tract, #30 TAB Prov:NEHMEIAS POMPA MD 10/25/16 Reported Medications Carvedilol (CARVEDILOL) 25 Mg Tablet, 25 MG PO BID, #10 TAB 02/07/17 Amiodarone Hcl (AMIODARONE HCL) 200 Mg Tablet, 200 MG PO DAILY 02/21/16 Oxygen (Oxygen) 2 L Inha, 3 L INH QHS 3 L at hs, and prn day at 2L 01/08/10 Discontinued Reported Medications Warfarin Sodium (WARFARIN SODIUM) 5 Mg Tablet, 2.5 MG PO DAILY, TAB 12/17/16 Follow up Referrals: Cardiology @ [facility] [place] with Carley Sparks Md Internal Medicine @ [facility] with Alaina Valencia Md Diet: Regular, No Added Salt (RAMONITA) Activity: As Tolerated, No Exertion Special Instructions: Continue home oxygen at 3-4L via nasal cannula. Follow up with Dr. Valencia in next 1-2 weeks. Follow up with cardiology in next 1-2 weeks. Copies to: ALAINA VALENCIA MD; DEEDEE DEMPSEY MD Venous Thromboembolism Antithrombotics Is Pt On Any Antithrombotics?: Yes Problem Qualifiers (1) Anemia: Anemia type: unspecified type Qualified Codes: D64.9 - Anemia, unspecified (2) CHF exacerbation: Congestive heart failure type: systolic Qualified Codes: I50.23 - Acute on chronic systolic (congestive) heart failure LEIGH ANN POMPA MD Mar 16, 2017 10:09
== END 2017-03-16 11:45 | disposition home or self-care (01) | DRG 813 ==
LOC: ER 13:03 → MED 15:45
PROVIDERS: ADMIT Internal Medicine; ATTEND Internal Medicine
PROC: 30233N1 Transfusion of Nonautologous Red Blood Cells into Peripheral Vein, Percutaneous Approach (ICD-10-PCS; principal; 2017-03-08)
DX: D68.32 Hemorrhagic disorder due to extrinsic circulating anticoagulants (principal); I50.23 Acute on chronic systolic (congestive) heart failure; J44.1 Chronic obstructive pulmonary disease with (acute) exacerbation; I13.0 Hypertensive heart and chronic kidney disease with heart failure and stage 1 through stage 4 chronic kidney disease, or unspecified chronic kidney disease; D62 Acute posthemorrhagic anemia; J10.1 Influenza due to other identified influenza virus with other respiratory manifestations; I27.20 Pulmonary hypertension, unspecified; I48.2 Chronic atrial fibrillation; E66.9 Obesity, unspecified; N18.3 Chronic kidney disease, stage 3 (moderate); K21.9 Gastro-esophageal reflux disease without esophagitis; E83.51 Hypocalcemia; Z79.01 Long term (current) use of anticoagulants; Z86.711 Personal history of pulmonary embolism; Z68.30 Body mass index [BMI] 30.0-30.9, adult; Z99.81 Dependence on supplemental oxygen; Z95.0 Presence of cardiac pacemaker; Z90.49 Acquired absence of other specified parts of digestive tract; Z87.891 Personal history of nicotine dependence; Z88.8 Allergy status to other drugs, medicaments and biological substances
CPT/HCPCS: 36415; 36430; 71045; 82040; 82247; 82274; 82310; 82374; 82435; 82565; 82947; 83880; 84075; 84132; 84155; 84295; 84450; 84460; 84484; 84520; 85025; 85379; 85610; 86850; 86900; 86901; 86920; 87045; 87205; 87324; 87449; 87502; 93005; 93306; 94640; 94667; 94668; 97161; 97165; 99285; J1940; J3430; J3490; J7040; J7050; J7613; P9016

== ENCOUNTER → 2017-03-08 | Outpatient (REF) | payer MEDICARE, OTHER ==
[2016-10-24 09:45] VITALS: BMI 33.4
[~2017-03-08] MED LIST: ALBU8.5H IH; AMIO200T47 PO; AMOX-559 PO; APIX5TAB PO; BEN10 PO; BENA10TA4 PO; BENA10TA53 PO; CARV25TA78 PO; CARV3.1255 PO; DAR100 PO; DIG25 PO; DIGITEK; DILT360C26 PO; DUONEB INH; FINA5TAB67 PO; FLE100 PO; FURO20TA19 PO; IPRA3AMP21 IH; METO-235 PO; METO-257 PO; OMEP-218 PO; OXYGEN INH; PANT40TA65 PO; PROP225T12 PO; RANI-324 PO; TIO18R INH; WAR5 PO; WARF-18 PO; [UNRECOGNIZED DRUG - CODE] PO
[2017-03-08 11:41] LABS: PLATELET COUNT, AUTOMATED 291 K/uL (150-450)
[2017-03-08 11:47] LABS: INR 2.33
== END ==
PROVIDERS: ATTEND Nurse Practitioner Family
DX: R55 Syncope and collapse (principal); R05 Cough
CPT/HCPCS: 82040; 82247; 82310; 82374; 82435; 82565; 82947; 84075; 84132; 84155; 84295; 84450; 84460; 84484; 84520; 85025; 85379; 85610

== ENCOUNTER 2017-03-18 08:15 | Outpatient (RCR) | payer MEDICARE, OTHER ==
[2017-03-09 09:24] VITALS: BMI 33.4
[~2017-03-18 08:15] MED LIST changes: +IRO150 PO
--- NOTE | 2017-03-18 12:56 | Transitional Care Management ---
TCM Discharge Criteria Transitional Care Comment: 03/12 Pt didn't react much to the teaching today. Left him some information. Instructed him to walk to door and back and sit up in chair for meal 03/14 Sleeping 03/15Awake-states"feeling much improved" went over the red/yellow flags of CHF and bleeding. He is possibly going home today waiting for echo results. Enc him to do some activity ie walk around in house up to table for meals. 03/16 dressed self and ready to dc. review new med. diet, fluid restriction. Enc daily wt and review s/s CHF to report. Suggest he check for inhaler at pharm when he picks up his iron and if not there to ask MD when he calls for f/u appt today. 03/17 Unable to contact. 03/18 No answer, unable to contact. ALLY DUKE Mar 18, 2017 12:56
--- NOTE | 2017-03-19 14:52 | Transitional Care Management ---
TCM Discharge Criteria Transitional Care Comment: 03/12 Pt didn't react much to the teaching today. Left him some information. Instructed him to walk to door and back and sit up in chair for meal 03/14 Sleeping 03/15Awake-states"feeling much improved" went over the red/yellow flags of CHF and bleeding. He is possibly going home today waiting for echo results. Enc him to do some activity ie walk around in house up to table for meals. 03/16 dressed self and ready to dc. review new med. diet, fluid restriction. Enc daily wt and review s/s CHF to report. Suggest he check for inhaler at pharm when he picks up his iron and if not there to ask MD when he calls for f/u appt today. 03/17 Unable to contact. 03/18 No answer, unable to contact. 03/19 No answer with [phone], [phone] is an incorrect number. ALLY DUKE Mar 19, 2017 14:52
--- NOTE | 2017-03-22 12:45 | Transitional Care Management ---
TCM Discharge Criteria Transitional Care Comment: 03/12 Pt didn't react much to the teaching today. Left him some information. Instructed him to walk to door and back and sit up in chair for meal 03/14 Sleeping 03/15Awake-states"feeling much improved" went over the red/yellow flags of CHF and bleeding. He is possibly going home today waiting for echo results. Enc him to do some activity ie walk around in house up to table for meals. 03/16 dressed self and ready to dc. review new med. diet, fluid restriction. Enc daily wt and review s/s CHF to report. Suggest he check for inhaler at pharm when he picks up his iron and if not there to ask MD when he calls for f/u appt today. 03/17 Unable to contact. 03/18 No answer, unable to contact. 03/19 No answer with [phone], [phone] is an incorrect number. 03/22 Unable to contact 03/17 x 2, 03/18, 03/19, 03/22; dc from RICK Brar Mar 22, 2017 12:45
== END 2017-03-22 13:25 | disposition home or self-care (01) ==
LOC: TCM 08:15
PROVIDERS: ATTEND Nurse Practitioner
DX: Z02.9 Encounter for administrative examinations, unspecified (principal)

== ENCOUNTER → 2017-04-04 | Outpatient (CLI) | payer MEDICARE, OTHER ==
[2017-03-09 09:24] VITALS: BMI 33.4
[~2017-04-04] MED LIST changes: +WARF2.5T11 PO
== END ==
LOC: LAB 12:58
PROVIDERS: ATTEND Family Medicine
DX: D62 Acute posthemorrhagic anemia (principal)
CPT/HCPCS: 36415; 85014; 85018

== ENCOUNTER → 2017-04-18 | Outpatient (CLI) | payer MEDICARE, OTHER ==
[2017-03-09 09:24] VITALS: BMI 33.4
[~2017-04-18] MED LIST changes: -WARF-18 PO; +WARF5TAB23 PO
[2017-04-18 12:17] LABS: PLATELET COUNT, AUTOMATED 273 K/uL (150-450)
== END ==
LOC: LAB 11:26
PROVIDERS: ATTEND Family Medicine
DX: K92.2 Gastrointestinal hemorrhage, unspecified (principal); E61.1 Iron deficiency
CPT/HCPCS: 36415; 82728; 85025

== ENCOUNTER 2017-04-25 20:35 | Inpatient (IN) | payer MEDICARE, OTHER ==
[~2017-04-25] VITALS: Ht 182.9 cm; Wt 120.2 kg
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
[2017-04-25] MEDS ORDERED: NS(*) 0.9% 1000 ML BAG 1,000 ML IV ONE (20:51)
--- NOTE | 2017-04-25 21:08 | EKG ---
FACILITY: [facility] PATIENT NAME: PANCHO CASON : [id number] MR: [id number] V: [id number] EXAM DATE: ORDERING PHYSICIAN: JOVITA TIAN TECHNOLOGIST: ELISABET Test Reason : WEAKNESS Blood Pressure : / mmHG Vent. Rate : 082 BPM Atrial Rate : 082 BPM P-R Int : 000 ms QRS Dur : 120 ms QT Int : 376 ms P-R-T Axes : 000 -73 073 degrees QTc Int : 439 ms Atrial fibrillation with variable intraventricular conduction delay Left axis deviation Low voltage QRS Previously he had a RBBB now he has a variable IVCD Confirmed by MARGRET SCHULTE ([id number]) on 04/25/2017 11:07:15 PM Referred By: Confirmed By:MARGRET SCHULTE
[2017-04-25 21:37] LABS: PLATELET COUNT, AUTOMATED 239 K/uL (150-450)
[2017-04-25 21:45] LABS: INR 1.84
[2017-04-25] MEDS ORDERED: ACETAMINOPHEN 325 MG TAB PO ONE (22:00)
--- NOTE | 2017-04-25 22:52 | RADIOLOGY IMAGING REPORT ---
FACILITY: [facility] PATIENT NAME: Shaggy Roland : 1940 MR: [id number] V: [id number] EXAM DATE: ORDERING PHYSICIAN: JOVITA TIAN TECHNOLOGIST: Location: [facility] Patient: Shaggy Roland : 1940 Visit/Account:[id number] Date of Sevice: 04/25/2017 EXAMINATION: Chest 2 Views HISTORY: Fever. COMPARISON: 03/13/2017. FINDINGS: Shallow inspiration. Stable bibasilar opacities, greater on the left, with a small left pleural effus ion. The upper lungs remain grossly clear. No pneumothorax. Moderate cardiac enlargement, with stable cardiomediastinal contours. Cardiac defibrillator. No acute osseous findings. IMPRESSION: 1. Stable bibasilar opacities, greater on the left, with a small left pleural effusion. 2. No new or progressive findings in the chest. Report Dictated By: Rome Burnett MD at 04/25/2017 10:46 PM Report E-Signed By: Rome Burnett MD at 04/25/2017 10:47 PM WSN:[id number]
[2017-04-25] MEDS ORDERED: cefTRIAXone 2 GM VIAL IVP ONE (23:50)
[2017-04-25] MEDS ORDERED: ACETAMINOPHEN 500 MG TAB PO PRN (23:55)
[2017-04-25] MEDS ORDERED: INFLUENZA VIRUS VAC 0.5 ML SYR IM ONLY ONE (23:55)
[2017-04-26] MEDS ORDERED: cefTRIAXone 2 GM VIAL ONE (00:17)
--- NOTE | 2017-04-26 00:39 | History & Physical ---
History of Present Illness History of Present Illness 76yo male with a h/o TURP, atrial fibrillation and GI bleed who came in to the ER for hematuria, chills, and dysuria. He was in his normal state of health this morning, then about 1400 hematuria and dysuria at 1430. At 1630, he had chills. He was walking in the house and lost his footing. He went down to the ground and wasn't strong enough to get up. That is when his noticed that something was wrong. He didn't complain to her about anything prior. He denies cp/sob/difficulty urinating/flank pain/sores at the urethra or groin. In the ER, he was given Tylenol, IVF and Rocephin. History Problems: (1) History of cholecystectomy Status: Resolved (2) Hx of splenectomy Status: Resolved (3) Hx of transurethral resection of prostate Status: Resolved (4) History of radiofrequency ablation procedure for cardiac arrhythmia Status: Chronic (5) STEPHANIE treated with BiPAP Status: Chronic (6) GIB (gastrointestinal bleeding) Status: Chronic (7) Afib Status: Chronic (8) History of automatic internal cardiac defibrillator (AICD) Status: Chronic (9) Chronic renal disease, stage 3, moderately decreased glomerular filtration rate (GFR) between 30-59 mL/min/1.73 square meter Status: Chronic (10) COPD (chronic obstructive pulmonary disease) Status: Chronic (11) GERD (gastroesophageal reflux disease) Status: Chronic Home Meds Active Scripts Benazepril Hcl (BENAZEPRIL HCL) 10 Mg Tab, 5 MG PO QDAY, #90 TAB 4 Refills Prov:ALAINA VALENCIA MD 04/18/17 Warfarin Sodium (WARFARIN SODIUM) 5 Mg Tablet, 0.5-1 MG PO QDAY for 90 Days, # 90 TAB Solis 2.5 MG, M 2.5 MG, Tu 2.5 MG, W 2.5 MG, Th 2.5 MG, F 5 MG, Sa 2.5 MG Prov:ALAINA VALENCIA MD 04/08/17 Polysaccharide Iron Complex (POLY-IRON) 150 Mg Cap, 150 MG PO BIDBS, #60 CAP Prov:MARGRET SCHULTE MD 03/15/17 Pantoprazole Sodium (PANTOPRAZOLE SODIUM) 40 Mg Tablet.dr, 40 MG PO QDAY for protect GI tract, #30 TAB Prov:NEHEMIAS POMPA MD 10/25/16 Reported Medications Carvedilol (CARVEDILOL) 25 Mg Tablet, 1 TAB PO BID 02/07/17 Oxygen (Oxygen) 2 L Inha, 2-3 L INH 3 L at hs, and prn day at 2L 01/08/10 Allergies: Coded Allergies: propafenone (Verified Allergy, Unknown, 03/08/17) Patient History: FH: NH (myocardial infarction) FATHER MOTHER FH: diabetes mellitus BROTHER OR SISTER BROTHER OR SISTER BROTHER OR SISTER BROTHER OR SISTER BROTHER OR SISTER BROTHER OR SISTER CHILD Hx Smoking: Yes (40yrs ago) Smoking Status: Former Smoker Exposure to Second Hand Smoke?: No Caffeine Intake: Coffee Caffeine/Cups Per Day: 1 cup per day Hx Alcohol Use: No Hx Substance Use Disorder: No Social Drug Use: Never Review of Systems All Systems Reviewed/Normal: Yes, Except as Noted Exam Vital Signs Vital Signs Date Time Temp Pulse Resp B/P (MAP) Pulse Ox O2 Delivery O2 Flow Rate FiO2 04/25/17 22:46 3.0 04/25/17 20:54 103.2 84 26 145/74 85 Nasal Cannula General Appearance: Alert, Awake, Other (Mildly tachypneic and pale) Neuro: No Gross deficits Eyes: PERRLA ENT: Moist Mucous Membranes Cardiovascular: Other (difficult to hear his heart tones) Respiratory: Clear to Auscultation (Bibasilar insp crackles) GI: Abd Soft and Non-Tender : No CVA Tenderness, Other (Uncircumsized. No erythema on penis or scrotum) Extremities: No Edema Integumentary: No Jaundice, No Cyanosis Medical Decision Making Data Points Result Diagram: 04/25/17212604/25/172126 Item Value Date Time Prothromb Time International Ratio 1.84 04/25/172126 Prothrombin Time with INR 1.8 04/21/17 1530 Hemoglobin 10.4 g/dL L 04/18/17 1132 Hemoglobin 10.8 g/dL L 04/25/172126 White Blood Count 17.1 k/uL H 04/25/172126 White Blood Count 9.1 k/uL 04/18/17 1132 Neutrophils (%) (Auto) 87.9 % H 04/25/172126 Lymphocytes (%) (Auto) 4.4 % L 04/25/172126 Mean Corpuscular Volume 76.4 fL L 04/25/172126 Mean Corpuscular Volume 75.0 fL L 04/18/17 1132 Neutrophils (%) (Auto) 62.3 % 04/18/17 113 Lymphocytes (%) (Auto) 17.5 % L 04/18/17 1132 Creatinine 1.10 mg/dl 04/25/172126 Creatinine 1.20 mg/dl 03/16/17 0556 Lactate 1.8 mmol/L 04/25/172126 Total Bilirubin 0.8 mg/dl 04/25/172126 Aspartate Amino Transf (AST/SGOT) 15 U/L 04/25/172126 Alanine Aminotransferase (ALT/SGPT) 30 U/L 04/25/172126 Alkaline Phosphatase 126 U/L 04/25/172126 Troponin I < 0.012 ng/ml 04/25/172126 C-Reactive Protein 3.0 mg/dl H 04/25/172126 Urine Urobilinogen 4.0 mg/dL H 04/25/172134 Urine Leukocyte Esterase Large H 04/25/172134 Urine RBC 230 /HPF 04/25/172134 Urine WBC 295 /HPF 04/25/172134 Urine Squamous Epithelial Cells Moderate /LPF H 04/25/172134 Urine Bacteria Negative /HPF 04/25/172134 Urine Blood Large 04/25/172134 EKG / Imaging EKG Interpretation Vent. Rate : 082 BPM Atrial Rate : 082 BPM P-R Int : 000 ms QRS Dur : 120 ms QT Int : 376 ms P-R-T Axes : 000 -73 073 degrees QTc Int : 439 ms Atrial fibrillation with variable intraventricular conduction delay Left axis deviation Low voltage QRS Previously he had a RBBB now he has a variable IVCD Confirmed by MARGRET SCHULTE ([id number]) on 04/25/2017 11:07:15 PM Imaging CXR - 1. Stable bibasilar opacities, greater on the left, with a small left pleural effusion. 2. No new or progressive findings in the chest. Assessment and Plan Problems: (1) Urinary tract infection Status: Acute Assessment & Plan: He presented with a couple hour onset of hematuria, dysuria , chills and weakness. He was febrile to 103.2 and had a WBC of 17.1. BP and P are stable. Lactate wnl. He has a remote h/o TURP. He had cultures in 2014 that grew Pseudomonas [place] and one in 2013 that grew Pseudomonas Aeruginosa. Based on those sensitivities, will switch from Rocephin to Primaxin. He doesn' t want a Vargas catheter and had a PVR by US of about 50cc. Blood and urine cultures pending. (2) Atrial fibrillation Status: Chronic Assessment & Plan: Rate controlled. Will continue Coreg. He is back on warfarin for stroke prophylaxis. Will hold for hematuria and follow INR. (3) GERD (gastroesophageal reflux disease) Status: Chronic Assessment & Plan: Continue Protonix. (4) HTN (hypertension) Status: Chronic Assessment & Plan: Will hold chronic benazepril and give Coreg with parameters. (5) Chronic renal disease, stage 3, moderately decreased glomerular filtration rate (GFR) between 30-59 mL/min/1.73 square meter Status: Chronic Assessment & Plan: Baseline creatinine is 1.0-1.2. (6) Chronic systolic heart failure Status: Chronic Assessment & Plan: Echo on 03/14/17 showed an EF 63%, severe enlargement of LA and RA, possible MS, moderate MR. (7) GIB (gastrointestinal bleeding) Status: Chronic Assessment & Plan: He has had 5 admission in about the last 2 years for GI bleed. He has received multiple infusions of FFP to reverse warfarin and has received 16 units of PRBC since May of 2015. His admission in September, he had an EGD/colonoscopy that showed no active bleeding, but old blood in the colon that was thought to be from a diverticular bleed. His warfarin was stopped in February for a GI bleed admission. It was restarted as an outpatient a couple of weeks ago. Will hold warfarin for now. (8) Hx of splenectomy Status: Resolved (9) History of automatic internal cardiac defibrillator (AICD) Status: Chronic Copies to: ALAINA VALENCIA MD Venous Thromboembolism Antithrombotics Is Pt On Any Antithrombotics?: Yes Exam Sepsis Risk: Possible Severe Sepsis Risk Problem Qualifiers (1) Urinary tract infection: Urinary tract infection type: acute cystitis Hematuria presence: with hematuria Qualified Codes: N30.01 - Acute cystitis with hematuria MARGRET SCHULTE MD Apr 26, 2017 00:39
[2017-04-26] MEDS ORDERED: IMIPENEM/CILASTA(*) 500MG VIAL 300 MG in NS(*) 0.9% 100 ML BAG 100 ML IVPB SCH (01:00)
[2017-04-26] MEDS ORDERED: IMIPENEM/CILASTATIN 500MG VIAL IVPB ONE (01:22)
[2017-04-26 01:36] VITALS: BP 100/68
[2017-04-26] MEDS: NS(*) 0.9% 1000 ML BAG 1,000 ML IV PRN ×2 (01:36→12:08)
[2017-04-26] MEDS: IMIPENEM/CILASTA(*) 500MG VIAL 300 MG in NS(*) 0.9% 100 ML BAG 100 ML IVPB SCH ×3 (06:06→19:53)
[2017-04-26 06:07] LABS: PLATELET COUNT, AUTOMATED 225 K/uL (150-450)
[2017-04-26 06:11] LABS: INR 2.16
[2017-04-26 07:06] VITALS: BP 108/56
[2017-04-26] MEDS ORDERED: BENA5TAB32 PO (08:11)
[2017-04-26] MEDS: CARVEDILOL 25 MG TABLET PO SCH ×2 (08:47→21:00)
--- NOTE | 2017-04-26 09:38 | Miscellaneous Provider Note ---
Miscellaneous Provider Note Note Patient admitted early this morning with UTI. Quick check this morning, he is starting to feel better. Urine cultures are starting to show some growth, but nothing specific yet. Patient is on Primaxin currently and will be dosed based on renal function. Patient will have CBC and BMP checked in the morning. ADAM GEE MD FACP Apr 26, 2017 09:38
[2017-04-26 12:04] VITALS: BP 116/61
[2017-04-26] MEDS: PANTOPRAZOLE SOD 40 MG TABEC PO SCH (12:07)
[2017-04-26 12:09] VITALS: BMI 34.2
[2017-04-26 15:48] VITALS: BP 114/59
[2017-04-26 19:45] VITALS: BP 112/47
[2017-04-27 00:57] VITALS: BP 116/64
[2017-04-27] MEDS: IMIPENEM/CILASTA(*) 500MG VIAL 300 MG in NS(*) 0.9% 100 ML BAG 100 ML IVPB SCH ×2 (00:59→06:28)
[2017-04-27] MEDS: NS(*) 0.9% 1000 ML BAG 1,000 ML IV PRN (01:01)
[2017-04-27 06:40] LABS: PLATELET COUNT, AUTOMATED 200 K/uL (150-450)
[2017-04-27 06:47] LABS: INR 2.22
[2017-04-27 07:19] VITALS: BP 119/95
[2017-04-27] MEDS: ALBUTEROL/IPRATROPIUM 3 ML NEB NEB SCH ×3 (08:35→16:53)
--- NOTE | 2017-04-27 09:00 | Hospitalist Progress Note ---
Subjective Progress Notes Subjective Patient states he is doing well today. No acute events overnight. Patient Complains of: Cardiovascular: No: Chest Pain Respiratory: No: Shortness of Breath Physical Exam Vital Signs Date Time Temp Pulse Resp B/P (MAP) Pulse Ox O2 Delivery O2 Flow Rate FiO2 04/27/17 08:38 71 20 04/27/17 08:38 95 Nasal Cannula 4.0 04/27/17 07:19 98.3 119/95 (103) Intake and Output 04/28/17 07:00 Intake Total 1220 ml Balance 1220 ml IV Total 1220 ml General Appearance: Alert, Awake, No Acute Distress, Afebrile Cardiovascular: Regular Rate and Rhythm Respiratory: Other (Right sided expiratory wheezes present) Psych: Appropriate Mood & Affect Result Diagram: 04/27/1760804/27/17608 Assessment and Plan Problems: (1) Urinary tract infection Status: Acute Assessment & Plan: He was admitted for UTI. Patient is currently on Primaxin based on previous urine cultures. Urine culture still pending today. (2) Atrial fibrillation Status: Chronic Assessment & Plan: Patient is on Coreg. Warfarin on hold secondary to hematuria. Will repeat a urine and follow INR. (3) GERD (gastroesophageal reflux disease) Status: Chronic Assessment & Plan: Continue Protonix. (4) HTN (hypertension) Status: Chronic Assessment & Plan: We have discontinued benazepril and will give Coreg with parameters. (5) Chronic renal disease, stage 3, moderately decreased glomerular filtration rate (GFR) between 30-59 mL/min/1.73 square meter Status: Chronic Assessment & Plan: Baseline creatinine is 1.0-1.2. Exam Sepsis Risk: No Definite Risk Problem Qualifiers (1) Urinary tract infection: Urinary tract infection type: acute cystitis Hematuria presence: with hematuria Qualified Codes: N30.01 - Acute cystitis with hematuria ALEX LARA Apr 27, 2017 09:00
[2017-04-27 11:00] VITALS: BP 127/65
[2017-04-27] MEDS: PANTOPRAZOLE SOD 40 MG TABEC PO SCH (11:03)
[2017-04-27] MEDS: CARVEDILOL 25 MG TABLET PO SCH ×2 (11:03→21:02)
--- NOTE | 2017-04-27 12:04 | Antimicrobial Stewardship ---
Antimicrobial Stewardship Service: Hospitalist Indications: UTI Antimicrobial Used Primaxin Start Date: Apr 25, 2017 Height (Calculated Centimeters: [phone] Weight (Calculated Kilograms): 114.362 Creatinine Cl CrCl ~66.8 to 79ml/min Culture Results: Yes Recommendations re: Culture 04/25/17- Urine Cx (+) - GNR 75,000-100,000cfu--- Sensitivities pending Comments 76 yo M who presented with chills and a near syncopal episode. PMH of UTI, GERD , HTN, afib, CKD, CHF-Class III EF 45% from 04/16, sleep apnea, PE, GI Bleed, BPH 04/25/17 - Tmax 103.2F, WBC 17.1-->13.1-->8.6 Chest xray (-) Urine Cx (+)--GNR (75-100,000cfu)-- sensitivities pending 1. UTI- Started on Primaxin 300mg IV q6h - would recommend increasing to 400mg IV Q6h until susceptibilities come back. Broad spectrum antibiotics is appropriate for short term (pt has a history of Pseudomonas UTIs). De-escalate therapy as appropriate based on culture/sensitivity. Will follow cultures Lolly Byrne, PharmD, BCOP LOLLY BYRNE Apr 27, 2017 11:39
[2017-04-27 12:47] VITALS: Ht 182.9 cm; Wt 120.2 kg
[2017-04-27] MEDS: IMIPENEM/CILASTA(*) 500MG VIAL 400 MG in NS(*) 0.9% 100 ML BAG 100 ML IVPB SCH ×2 (13:57→18:17)
[2017-04-27 14:04] VITALS: BP 108/68
--- NOTE | 2017-04-27 14:53 | RADIOLOGY IMAGING REPORT ---
FACILITY: [facility] PATIENT NAME: Shaggy Roland : 1940 MR: [id number] V: [id number] EXAM DATE: ORDERING PHYSICIAN: ALEX LARA TECHNOLOGIST: Location: [facility] - [place] Patient: Shaggy Roland : 1940 Visit/Account:[id number] Date of Sevice: 04/27/2017 Exam type: CHEST SINGLE AP History: CHEST PAIN Comparison: April 25, 2017. Findings: There is a single lead pacemaker/ICD device. The battery pack overlies the left midlung field. The bibasilar opacities appear similar to the prior study. There is persistent blunting left costophreni c angle consistent with left pleural effusion. There is a mild increase in the interstitial markings without the lungs which may represent an exacerbation of pulmonary edema. Cardiac silhouette is enl arged. IMPRESSION: 1. Increasing interstitial markings of the lungs which may represent an exacerbation of pulmonary ed richard Small left pleural effusion by basilar opacities and cardiomegaly unchanged Report Dictated By: Luma Mirza MD at 04/27/2017 2:46 PM Report E-Signed By: Luma Mirza MD at 04/27/2017 2:48 PM WSN:[email or web address]
[2017-04-27 19:59] VITALS: BP 123/62
[2017-04-28] MEDS: IMIPENEM/CILASTA(*) 500MG VIAL 400 MG in NS(*) 0.9% 100 ML BAG 100 ML IVPB SCH ×3 (00:53→13:31)
[2017-04-28 00:55] VITALS: BP 120/70
[2017-04-28] MEDS: ALBUTEROL/IPRATROPIUM 3 ML NEB NEB SCH ×3 (05:55→17:16)
[2017-04-28 06:18] LABS: INR 2.17
[2017-04-28] MEDS ORDERED: WARF5TAB23 PO (09:15)
[2017-04-28 10:00] VITALS: BP 128/67
[2017-04-28] MEDS: CARVEDILOL 25 MG TABLET PO SCH ×2 (10:08→20:56)
[2017-04-28] MEDS: PANTOPRAZOLE SOD 40 MG TABEC PO SCH (10:08)
[2017-04-28] MEDS ORDERED: NS(*) 0.9% 10 ML VIAL 0 ML ONE (10:59)
--- NOTE | 2017-04-28 11:30 | Hospitalist Progress Note ---
Subjective Progress Notes Subjective This patient was admitted for urinary infection. He had no acute issues overnight. Patient Complains of: Cardiovascular: No: Chest Pain Respiratory: No: Shortness of Breath Physical Exam Vital Signs Date Time Temp Pulse Resp B/P (MAP) Pulse Ox O2 Delivery O2 Flow Rate FiO2 04/28/17 05:56 73 16 04/28/17 05:50 94 Nasal Cannula 5.0 04/28/17 00:55 98.1 120/70 (87) Intake and Output 04/29/17 07:00 Intake Total 440 ml Output Total 250 ml Balance 190 ml Intake Oral 340 ml IV Total 100 ml Output Urine Total 250 ml Cardiovascular: Regular Rate and Rhythm Respiratory: Clear to Auscultation Result Diagram: 04/28/17 0559 04/28/17 0559 Item Value Date Time Urine Culture - Preliminary Resulted 04/25/172134 Clean Catch Midstream Ur Gram Negative Corbin Assessment and Plan Problems: (1) Urinary tract infection Status: Acute Assessment & Plan: He did present with a fever and elevated WBC. His urine culture is showing growth of a gram negative corbin, which is know to be a Pseudomonas species. He is currently on treatment with Primaxin. Pharmacy is evaluating for appropriate antibiotics, but he will likely require 14days of IV treatment. He did have a PICC line placed today and arrangements are underway for home IV antibiotics. He will also need to follow up with Urology since he has a history of recurrent Pseudomonas infections. (2) Atrial fibrillation Status: Chronic Assessment & Plan: He is on chronic treatment with carvedilol and his warfarin was restarted today. (3) GERD (gastroesophageal reflux disease) Status: Chronic Assessment & Plan: He is on chronic treatment with Protonix. (4) HTN (hypertension) Status: Chronic Assessment & Plan: We have discontinued his benazepril since his blood pressure has been normal to low throughout this admission. (5) Chronic renal disease, stage 3, moderately decreased glomerular filtration rate (GFR) between 30-59 mL/min/1.73 square meter Status: Chronic Exam Sepsis Risk: No Definite Risk Problem Qualifiers (1) Urinary tract infection: Urinary tract infection type: acute cystitis Hematuria presence: with hematuria Qualified Codes: N30.01 - Acute cystitis with hematuria (2) HTN (hypertension): Hypertension type: essential hypertension Qualified Codes: I10 - Essential ( primary) hypertension EUGENIO MENDEZ DO Apr 28, 2017 11:30
[2017-04-28] MEDS ORDERED: WARFARIN SOD 2.5 MG TAB PO SCH (13:00)
--- NOTE | 2017-04-28 14:29 | Antimicrobial Stewardship ---
Antimicrobial Time Out Antimicrobial Stewardship MD Service: Hospitalist Indications: UTI Antimicrobial Used Empiric: Primaxin (Hx of Pseudomonas UTI in 2013 and 2014) Start Date: Apr 26, 2017 Culture Results: Yes (04/26/17: Urine Cx (+) 75-100K cfu--> Pseudomonas fluorescens S (Ceftazidime, Imipenem, Zosyn, Tobramycin)) Eligible for PO Conversion Eligable for PO Conversion: No (No oral equivalent that will cover Pseudomonas) Reviewed with Provider Reviewed w/ Provider on Rounds: Yes Date Reviewed w/ Provider: Apr 28, 2017 Comments Comments 76 yo M with Hx of Pseudomonas UTIs Symptomatic, Tmax 103, WBC elevated, Culture (+) Duration of therapy 14 days Today is day 3 of therapy CrCL ~79.5ml/min based on adj body weight, Scr 1 Will need IV antibiotics as an outpatient. Ceftazidime may be the best option for outpatient use and monitoring. Recommend Ceftazidime 1g IV Q12H to complete a 14 day course of antibiotics. Community Acquired Pseudomonas UTIs are most common in patients with urinary obstructions, chronic prostatitis, prolonged antibiotics, and recurrent infections. Consider urology referral/consult as an outpatient for follow up. Lolly Byrne, PharmD, BCOP LOLLY BYRNE Apr 28, 2017 14:29
[2017-04-28] MEDS ORDERED: CEFT1VIA IVP (16:43)
[2017-04-28 16:55] VITALS: BP 130/75
--- NOTE | 2017-04-28 17:06 | RADIOLOGY IMAGING REPORT ---
FACILITY: [facility] PATIENT NAME: Shaggy Roland : 1940 MR: [id number] V: [id number] EXAM DATE: ORDERING PHYSICIAN: EUGENIO MENDEZ TECHNOLOGIST: Location: [facility] [place] Patient: Shaggy Roland : 1940 Visit/Account:[id number] Date of Sevice: 04/28/2017 Exam type: PICC LINE INSERTION, PICC LINE PLACEMENT History: Long-Term IV Therapy Comparison: None. Findings: Informed consent was obtained. The patient's left arm was prepped and draped in usual sterile fashio n. Local anesthesia was accomplished with 1% lidocaine. Utilizing both fluoroscopic and sonographic guidance a trimmed 4 [place]ogolese single lumen power PICC was inserted via the patent left brachial vein w ith the distal tip resting in the superior vena cava. The PICC line was flushed with 5 mL of saline flush. The proximal portion PICC line was adhered to the patient's arm with a sterile dressing. The sonographic images were saved to PACS. The procedure was accomplished without apparent complication . The fluoroscopy dose area product was 626.85 micro-Yen per meter squared. IMPRESSION: . Successful placement of a 4 Togolese single lumen power PICC inserted via the patent left brachial v ein with the distal tip resting in superior vena cava Report Dictated By: Luma Mirza MD at 04/28/2017 5:00 PM Report E-Signed By: Luma Mirza MD at 04/28/2017 5:03 PM WSN:[email or web address]
--- NOTE | 2017-04-28 17:07 | RADIOLOGY IMAGING REPORT ---
FACILITY: [facility] PATIENT NAME: Shaggy Roland : 1940 MR: [id number] V: [id number] EXAM DATE: ORDERING PHYSICIAN: EUGENIO MENDEZ TECHNOLOGIST: Location: [facility] Patient: Shaggy Roland : 1940 Visit/Account:[id number] Date of Sevice: 04/28/2017 Exam type: PICC LINE INSERTION, PICC LINE PLACEMENT History: Long-Term IV Therapy Comparison: None. Findings: Informed consent was obtained. The patient's left arm was prepped and draped in usual sterile fashio n. Local anesthesia was accomplished with 1% lidocaine. Utilizing both fluoroscopic and sonographic guidance a trimmed 4 [place] Leonean single lumen power PICC was inserted via the patent left brachial vein w ith the distal tip resting in the superior vena cava. The PICC line was flushed with 5 mL of saline flush. The proximal portion PICC line was adhered to the patient's arm with a sterile dressing. The sonographic images were saved to PACS. The procedure was accomplished without apparent complication . The fluoroscopy dose area product was 626.85 micro-Yen per meter squared. IMPRESSION: . Successful placement of a 4 [place] Leonean single lumen power PICC inserted via the patent left brachial v ein with the distal tip resting in superior vena cava Report Dictated By: Luma Mirza MD at 04/28/2017 5:00 PM Report E-Signed By: Luma Mirza MD at 04/28/2017 5:03 PM WSN:[email or web address]
[2017-04-28] MEDS: cefTAZidime 1 GM VIAL IVP SCH (18:46)
[2017-04-28 19:29] VITALS: BP 115/68
[2017-04-28 22:12] VITALS: BP 133/70
[2017-04-29 03:12] VITALS: BP 129/74
[2017-04-29 03:22] VITALS: BP 115/52
[2017-04-29] MEDS: ALBUTEROL/IPRATROPIUM 3 ML NEB NEB SCH ×3 (05:00→17:59)
[2017-04-29 05:59] LABS: INR 2.1
[2017-04-29] MEDS: cefTAZidime 1 GM VIAL IVP SCH (06:22)
[2017-04-29 07:35] VITALS: BP 120/88
[2017-04-29] MEDS: CARVEDILOL 25 MG TABLET PO SCH (07:43)
[2017-04-29] MEDS: PANTOPRAZOLE SOD 40 MG TABEC PO SCH (07:43)
--- NOTE | 2017-04-29 08:24 | Hospitalist Depart ---
Discharge Summary Reason for Hosp/Final Diag: (1) Urinary tract infection Status: Acute Hospital Course & Plan: He did present with a fever and elevated WBC. His urine culture is showing growth of a gram negative lorraine, which is know to be a Pseudomonas species. He was with Primaxin. He will require 14days of IV treatment. He did have a PICC line placed and arrangements are made for home IV Ceftaz. He will also follow up with Urology since he has a history of recurrent Pseudomonas infections. (2) Atrial fibrillation Status: Chronic Hospital Course & Plan: He is on chronic treatment with carvedilol and warfarin. (3) GERD (gastroesophageal reflux disease) Status: Chronic Hospital Course & Plan: He is on chronic treatment with Protonix. (4) HTN (hypertension) Status: Chronic Hospital Course & Plan: We have discontinued his benazepril since his blood pressure has been normal to low throughout this admission. (5) Chronic renal disease, stage 3, moderately decreased glomerular filtration rate (GFR) between 30-59 mL/min/1.73 square meter Status: Chronic Departure Weight (Pounds): 252 Weight (Ounces): 2.0 Result Diagram: 04/28/1759 04/28/1759 Condition: Improved Discharge: Home, Home Health Home Health RN Follow Up For: Medication Management, Nursing Assessment Discharge Instructions Home Meds Active Scripts Ceftazidime Pentahydrate (TAZICEF) 1 Gm Vial, 1 GM IVP Q12H@0700,1900, #22 VIAL Prov:EUGENIO MENDEZ DO 04/28/17 Benazepril Hcl (BENAZEPRIL HCL) 5 Mg Tablet, 1 TAB PO QDAY for 90 Days, #90 TAB 4 Refills Prov:ALAINA VALENCIA MD 04/26/17 Polysaccharide Iron Complex (POLY-IRON) 150 Mg Cap, 150 MG PO BIDBS, #60 CAP Prov:MARGRET SCHULTE MD 03/15/17 Pantoprazole Sodium (PANTOPRAZOLE SODIUM) 40 Mg Tablet.dr, 40 MG PO QDAY for protect GI tract, #30 TAB Prov:NEHEMIAS POMPA MD 10/25/16 Reported Medications Warfarin Sodium (WARFARIN SODIUM) 5 Mg Tablet, 0 PO QDAY, TAB 2.5mg Sun, M, , Tue, , Sat; 5mg Tue04/28/17 Carvedilol (CARVEDILOL) 25 Mg Tablet, 1 TAB PO BID 02/07/17 Oxygen (Oxygen) 2 L Inha, 2-3 L INH 3 L at hs, and prn day at 2L 01/08/10 Discontinued Scripts Warfarin Sodium (WARFARIN SODIUM) 5 Mg Tablet, 0.5-1 MG PO QDAY for 90 Days, # 90 TAB Solis 2.5 MG, M 2.5 MG, Tu 2.5 MG, W 2.5 MG, Th 2.5 MG, F 5 MG, Sa 2.5 MG Prov:ALAINA VALENCIA MD 04/08/17 Benazepril Hcl (BENAZEPRIL HCL) 10 Mg Tab, 5 MG PO QDAY, #90 TAB 4 Refills Prov:ALAINA VALENCIA MD 04/18/17 Diet: Regular Activity: As Tolerated Copies to: ALAINA VALENCIA MD Venous Thromboembolism Antithrombotics Is Pt On Any Antithrombotics?: Yes [id number] Certification Face to Face Home Health Certification Institutional Provider conducted the [id number] encounter. Electronic Undersigning Physician Certifies Home Health. I certify that the patient has been under my care and that I had a [id number] encounter that meets the physician [id number] encounter requirements with this patient. This patient is home-bound due to safety issues and continues to require assistance with ADL's. I certify that based on my findings, that Nursing, Aides and the following Home Health services are medically necessary: Medical Necessity: Nursing Date Face to Face Conducted: Apr 29, 2017 Problem Qualifiers (1) Urinary tract infection: Urinary tract infection type: acute cystitis Hematuria presence: with hematuria Qualified Codes: N30.01 - Acute cystitis with hematuria (2) HTN (hypertension): Hypertension type: essential hypertension Qualified Codes: I10 - Essential ( primary) hypertension ALEX LARA Apr 29, 2017 08:24
[2017-04-29 12:01] VITALS: BP 122/70
[2017-04-29] MEDS ORDERED: WARFARIN SOD 5 MG TAB PO SCH (13:00)
[2017-04-29 15:34] VITALS: BP 118/69
[2017-04-29] MEDS ORDERED: cefTAZidime 1 GM VIAL IVP SCH (20:00)
[2017-05-02] MEDS ORDERED: PANT40TA65 PO (11:59)
== END 2017-04-29 20:34 | disposition home health service (06) | DRG 690 ==
LOC: ER 21:07 → MED 04-26 00:06
PROVIDERS: ADMIT Internal Medicine; ATTEND Internal Medicine
PROC: 5A09357 Assistance with Respiratory Ventilation, Less than 24 Consecutive Hours, Continuous Positive Airway Pressure (ICD-10-PCS; 2017-04-27)
PROC: 02HV33Z Insertion of Infusion Device into Superior Vena Cava, Percutaneous Approach (ICD-10-PCS; principal; 2017-04-28)
PROC: B548ZZA Ultrasonography of Superior Vena Cava, Guidance (ICD-10-PCS; 2017-04-28)
DX: N30.01 Acute cystitis with hematuria (principal); I13.0 Hypertensive heart and chronic kidney disease with heart failure and stage 1 through stage 4 chronic kidney disease, or unspecified chronic kidney disease; I50.22 Chronic systolic (congestive) heart failure; I48.2 Chronic atrial fibrillation; K21.9 Gastro-esophageal reflux disease without esophagitis; N18.3 Chronic kidney disease, stage 3 (moderate); B96.5 Pseudomonas (aeruginosa) (mallei) (pseudomallei) as the cause of diseases classified elsewhere; N40.0 Benign prostatic hyperplasia without lower urinary tract symptoms; R09.02 Hypoxemia; G47.33 Obstructive sleep apnea (adult) (pediatric); J44.9 Chronic obstructive pulmonary disease, unspecified; W19.XXXA Unspecified fall, initial encounter; Y92.009 Unspecified place in unspecified non-institutional (private) residence as the place of occurrence of the external cause; Y99.8 Other external cause status; Z95.810 Presence of automatic (implantable) cardiac defibrillator; Z79.01 Long term (current) use of anticoagulants; Z86.711 Personal history of pulmonary embolism; Z99.81 Dependence on supplemental oxygen; Z90.49 Acquired absence of other specified parts of digestive tract; Z85.828 Personal history of other malignant neoplasm of skin; Z87.891 Personal history of nicotine dependence
CPT/HCPCS: 36415; 36569; 71045; 71046; 76937; 81001; 82040; 82247; 82310; 82374; 82435; 82565; 82947; 83605; 83880; 84075; 84132; 84155; 84295; 84450; 84460; 84484; 84520; 85014; 85018; 85025; 85610; 85730; 86140; 87040; 87077; 87088; 87186; 87502; 93005; 94640; 96361; 96374; 97162; 97165; 99285; C1751; J0696; J0713; J0743; J7030; J7050

== ENCOUNTER 2017-05-09 07:50 | Outpatient (RCR) | payer MEDICARE, OTHER ==
[2017-04-27 12:47] VITALS: BMI 34.2
[2017-04-30 08:01] VITALS: BP 124/98
[2017-04-30 20:10] VITALS: BP 133/74
[2017-05-01 08:05] VITALS: BP 126/86
[2017-05-01 20:07] VITALS: BP 125/78
[2017-05-02] MEDS: cefTAZidime 1 GM VIAL IVP SCH ×2 (08:07→19:53)
[2017-05-02 08:08] VITALS: BP 126/76
[2017-05-02 19:50] VITALS: BP 119/77
[2017-05-03 08:09] VITALS: BP 130/89
[2017-05-03] MEDS: cefTAZidime 1 GM VIAL IVP SCH ×2 (08:16→20:13)
[2017-05-03 20:10] VITALS: BP 130/67
[2017-05-03 20:18] VITALS: BP 131/67
[2017-05-04 08:03] VITALS: BP 131/79
[2017-05-04] MEDS: cefTAZidime 1 GM VIAL IVP SCH ×2 (08:03→20:04)
[2017-05-04 19:50] VITALS: BP 131/76
[2017-05-05 08:04] VITALS: BP 131/86
[2017-05-05] MEDS: cefTAZidime 1 GM VIAL IVP SCH ×2 (08:09→20:06)
[2017-05-05 20:00] VITALS: BP 135/66
[2017-05-06 08:03] VITALS: BP 132/75
[2017-05-06] MEDS: cefTAZidime 1 GM VIAL IVP SCH ×2 (08:12→20:04)
[2017-05-06 19:55] VITALS: BP 136/55
[2017-05-07 07:51] VITALS: BP 131/66
[2017-05-07] MEDS: cefTAZidime 1 GM VIAL IVP SCH ×2 (08:05→20:18)
[2017-05-07 20:00] VITALS: BP 116/67
[2017-05-08] MEDS: cefTAZidime 1 GM VIAL IVP SCH ×2 (08:01→19:45)
[2017-05-08 08:12] VITALS: BP 112/56
[2017-05-08 19:50] VITALS: BP 122/79
[2017-05-08 19:58] VITALS: BP 123/72
[~2017-05-09 07:50] MED LIST changes: +cefTAZidime 1 GM VIAL IVP ONE
[2017-05-09] MEDS: cefTAZidime 1 GM VIAL IVP SCH (08:05)
[2017-05-09 08:16] VITALS: BP 118/83
[2017-05-09] MEDS ORDERED: CARV25TA78 PO (10:31)
[2017-05-09] MEDS ORDERED: PANT40TA65 PO (10:31)
== END 2017-05-10 07:47 | disposition home or self-care (01) ==
LOC: SPU 07:50
PROVIDERS: ATTEND Internal Medicine
DX: N30.01 Acute cystitis with hematuria (principal)
CPT/HCPCS: 96374; J0713

== ENCOUNTER → 2017-05-09 | Outpatient (CLI) | payer MEDICARE, OTHER ==
[2017-04-27 12:47] VITALS: BMI 34.2
[~2017-05-09] MED LIST changes: +BENA5TAB32 PO; +CEFT1VIA IVP
[2017-05-09 14:31] LABS: PLATELET COUNT, AUTOMATED 367 K/uL (150-450)
== END ==
LOC: SPU 13:55
PROVIDERS: ATTEND Family Medicine
DX: N39.0 Urinary tract infection, site not specified (principal); I95.9 Hypotension, unspecified; E83.51 Hypocalcemia
CPT/HCPCS: 36592; 82040; 82247; 82310; 82374; 82435; 82565; 82947; 84075; 84132; 84155; 84295; 84450; 84460; 84520; 85025; 96374; J0713

== ENCOUNTER 2017-05-22 02:59 | Emergency (ER) | payer MEDICARE, OTHER ==
[2017-04-27 12:47] VITALS: Wt 115.7 kg
[~2017-05-22 02:59] MED LIST changes: -cefTAZidime 1 GM VIAL IVP ONE
--- NOTE | 2017-05-22 03:23 | ER Report ---
History and Physical Time Seen By MD: 03:17 Hx. of Stated Complaint: PT REPORTS THAT HE IS BLEEDING FROM HIS RECTUM. PT REPORTS THAT IT IS BRIGHT RED BLOOD AND THAT THERE IS QUITE A BIT OF IT. HE HAS A HISTORY OF GI BLEEDS. HPI/ROS CHIEF COMPLAINT: rectal bleeding HISTORY OF PRESENT ILLNESS: This is a 76 year old male. He had bright red blood per rectum tonight, started 1 hour ago. Has had similar in the past, usually when INR is too high. On coumadin for Atrial fibrillation, ICD and past PE. INRs have been normal recently. Usually will see if it resolves, and usually ends up in the hospital for a few days holding the Coumadin and watching to see if it will stop, sometimes needing transfusions. He denies abdominal pain. Has no rectal pain. Has no nausea or vomiting. He has no other bleeding. He thought that the amount of blood was quite a bit, but has not had another bowel movement since then. He came in earlier this time to try to get ahead of the problem. He does feel weak, but has been getting around at home. He is on oxygen , 3liters by nasal canula, and at rest is not short of breath. He is feeling a little short of breath if he needs to walk longer distances. He has no chest pain. Allergies: Coded Allergies: No Known Drug Allergies (Unverified , 05/22/17) Home Meds Active Scripts Pantoprazole Sodium (PANTOPRAZOLE SODIUM) 40 Mg Tablet.dr, 1 TAB PO QDAY, #30 TAB 12 Refills Prov:ALAINA VALENCIA MD 05/09/17 Carvedilol (CARVEDILOL) 25 Mg Tablet, 1 TAB PO BID for 90 Days, #180 TAB 4 Refills Prov:ALAINA VALENCIA MD 05/09/17 Polysaccharide Iron Complex (POLY-IRON) 150 Mg Cap, 150 MG PO BIDBS, #60 CAP Prov:MARGRET SCHULTE MD 03/15/17 Reported Medications Warfarin Sodium (WARFARIN SODIUM) 5 Mg Tablet, 0 PO QDAY, TAB 2.5mg Sun, M, Tu, Wed, Th, Sat; 5mg 04/28/17 Oxygen (Oxygen) 2 L Inha, 2-3 L INH 3 L at hs, and prn day at 2L 01/08/10 Reviewed Nurses Notes: Yes Hx Smoking: Yes (40yrs ago) Smoking Status: Former Smoker Exposure to Second Hand Smoke?: No Hx Substance Use Disorder: No Hx Alcohol Use: No Constitutional Vital Sign - Last 24 Hours 05/22/17 05/22/17 05/22/17 05/22/17 03:05 03:06 03:11 03:15 Temp 98.4 Pulse 89 73 Resp 14 B/P (MAP) 127/87 (100) 127/87 139/80 (99) 133/81 (98) Pulse Ox 92 94 O2 Delivery Nasal Cannula 05/22/17 05/22/17 05/22/17 05/22/17 03:30 03:45 04:00 04:15 Pulse 66 68 65 66 B/P (MAP) 96/52 (67) 120/81 (94) 122/62 (82) 125/70 (88) Pulse Ox 93 94 93 94 Physical Exam General Appearance: The patient is alert. No acute distress. Eyes: Pupils are equal, round. No pallor, injection or icterus. ENT: Mucous membranes are moist. Normal oral mucosa. Posterior oropharynx is normal. Neck: Supple and non tender. Respiratory: Lungs are clear to auscultation. Cardiovascular: Regular rate and rhythm. No murmurs, gallops or rubs. Normal capillary refill. No edema. Gastrointestinal: Abdomen is soft and non tender. Nondistended. Normal active bowel sounds. No costovertebral angle tenderness with percussion. Rectal exam: Bright red blood, nontender, no masses or hemorrhoids. Neurological: Alert and oriented x3. No focal neurologic deficits Skin: Warm and dry. No rashes. Musculoskeletal: Extremities are nontender. Full range of motion. DIFFERENTIAL DIAGNOSIS: After history and physical exam, differential diagnosis was considered for rectal bleeding with bright red blood. Medical Decision Making Data Points Result Diagram: 05/22/17 0310 05/22/17 0310 Laboratory Hematology Test 05/22/17 03:10 Red Blood Count 4.21 M/uL (4.00-5.60) Mean Corpuscular Volume 79.4 fL (80.0-96.0) Mean Corpuscular Hemoglobin 24.8 pg (26.0-33.0) Mean Corpuscular Hemoglobin Concent 31.2 g/dL (32.0-36.0) Red Cell Distribution Width 26.4 % (11.5-14.5) Mean Platelet Volume 8.8 fL (7.2-11.1) Neutrophils (%) (Auto) 57.7 % (39.4-72.5) Lymphocytes (%) (Auto) 21.1 % (17.6-49.6) Monocytes (%) (Auto) 19.1 % (4.1-12.4) Eosinophils (%) (Auto) 1.2 % (0.4-6.7) Basophils (%) (Auto) 0.9 % (0.3-1.4) Nucleated RBC Relative Count (auto) 0.0 /100WBC Neutrophils # (Auto) 4.9 K/uL (2.0-7.4) Lymphocytes # (Auto) 1.8 K/uL (1.3-3.6) Monocytes # (Auto) 1.6 K/uL (0.3-1.0) Eosinophils # (Auto) 0.1 K/uL (0.0-0.5) Basophils # (Auto) 0.1 K/uL (0.0-0.1) Nucleated RBC Absolute Count (auto) 0.00 K/uL Peripheral Blood Smear Yes Y/N Prothrombin Time 28.2 seconds (12.0-14.4) Prothromb Time International Ratio 2.54 Activated Partial Thromboplast Time 40 seconds (23-35) Sodium Level 142 mmol/L (137-145) Potassium Level 4.4 mmol/L (3.5-5.0) Chloride Level 104 mmol/L (98-107) Carbon Dioxide Level 29 mmol/L (22-30) Blood Urea Nitrogen 21 mg/dl (9-21) Creatinine 1.10 mg/dl (0.66-1.25) Glomerular Filtration Rate Calc > 60.0 Random Glucose 108 mg/dl (75-110) Calcium Level 8.0 mg/dl (8.4-10.2) Total Bilirubin 1.0 mg/dl (0.2-1.3) Aspartate Amino Transf (AST/SGOT) 16 U/L (0-35) Alanine Aminotransferase (ALT/SGPT) 20 U/L (0-56) Alkaline Phosphatase 109 U/L (0-126) Total Protein 7.5 gm/dl (6.3-8.2) Albumin 3.4 g/dl (3.5-5.0) Chemistry Test 3/25/18 03:10 White Blood Count 8.4 k/uL (4.5-11.0) Red Blood Count 4.21 M/uL (4.00-5.60) Hemoglobin 10.4 g/dL (14.0-18.0) Hematocrit 33.4 % (42.0-52.0) Mean Corpuscular Volume 79.4 fL (80.0-96.0) Mean Corpuscular Hemoglobin 24.8 pg (26.0-33.0) Mean Corpuscular Hemoglobin Concent 31.2 g/dL (32.0-36.0) Red Cell Distribution Width 26.4 % (11.5-14.5) Platelet Count 261 K/uL (150-450) Mean Platelet Volume 8.8 fL (7.2-11.1) Neutrophils (%) (Auto) 57.7 % (39.4-72.5) Lymphocytes (%) (Auto) 21.1 % (17.6-49.6) Monocytes (%) (Auto) 19.1 % (4.1-12.4) Eosinophils (%) (Auto) 1.2 % (0.4-6.7) Basophils (%) (Auto) 0.9 % (0.3-1.4) Nucleated RBC Relative Count (auto) 0.0 /100WBC Neutrophils # (Auto) 4.9 K/uL (2.0-7.4) Lymphocytes # (Auto) 1.8 K/uL (1.3-3.6) Monocytes # (Auto) 1.6 K/uL (0.3-1.0) Eosinophils # (Auto) 0.1 K/uL (0.0-0.5) Basophils # (Auto) 0.1 K/uL (0.0-0.1) Nucleated RBC Absolute Count (auto) 0.00 K/uL Peripheral Blood Smear Yes Y/N Prothrombin Time 28.2 seconds (12.0-14.4) Prothromb Time International Ratio 2.54 Activated Partial Thromboplast Time 40 seconds (23-35) Glomerular Filtration Rate Calc > 60.0 Calcium Level 8.0 mg/dl (8.4-10.2) Total Bilirubin 1.0 mg/dl (0.2-1.3) Aspartate Amino Transf (AST/SGOT) 16 U/L (0-35) Alanine Aminotransferase (ALT/SGPT) 20 U/L (0-56) Alkaline Phosphatase 109 U/L (0-126) Total Protein 7.5 gm/dl (6.3-8.2) Albumin 3.4 g/dl (3.5-5.0) Coagulation Test 05/22/17 03:10 Prothrombin Time 28.2 seconds Prothromb Time International Ratio 2.54 Activated Partial Thromboplast Time 40 seconds ED Course/Re-evaluation Clinical Indication for ER IV: IV Access ED Course Results of blood testing showed a stable anemia that is unchanged from recent values and a normal INR. Discussion with the patient and review of the old records indicate that he has done well with bleeds in the past with holding the Coumadin and sometimes needing a transfusion. Past bleeds have been felt to be due to his diverticulosis. We discussed options, such as going home, but he is very weak. I called and spoke with Dr. Mcintyre, hospitalist, but we do not have a surgeon on that can perform scopes. Because of this, if hospitalization is needed, he would recommend transfer to another facility. I discussed this with the patient. The patient does not feel like the bleeding and his condition is bad enough to transfer to another facility, and would prefer to watch at home to see if bleeding worsens. He definitely is refusing to be transferred at this point. He will stop his Coumadin until he sees Dr. Valencia for his scheduled appointment tomorrow. If weak, short of breath, or chest pain, he will return for re-evaluation, and says that he has been through this before, so knows what to watch for. He feels like he is strong enough to walk short distances and transfers safely and his is in agreement. Decision to Disposition Date: May 22, 2017 Decision to Disposition Time: 04:20 Depart Departure Latest Vital Signs Vital Signs Date Time Temp Pulse Resp B/P (MAP) Pulse Ox O2 Delivery O2 Flow Rate FiO2 05/22/17 04:15 66 125/70 (88) 94 05/22/17 03:06 98.4 14 Nasal Cannula Impression: Primary Impression: Rectal bleeding Condition: Improved Disposition: HOME OR SELF-CARE Referrals: ALAINA VALENCIA MD (PCP) Patient Instructions: Rectal Bleeding (ED) Additional Instructions: Stop your Coumadin for now until you see Dr. Valencia tomorrow. If you have further bleeding and increased weakness or shortness of breath or chest pain, please return to the ER for further evaluation. HARDIK RODRIGUEZ MD May 22, 2017 03:23
[2017-05-22 03:31] LABS: PLATELET COUNT, AUTOMATED 261 K/uL (150-450)
[2017-05-22 03:38] LABS: INR 2.54
[2017-05-22 04:15] VITALS: BP 125/70
== END 2017-05-22 04:55 | disposition home or self-care (01) ==
LOC: ER 03:04
DX: K62.5 Hemorrhage of anus and rectum (principal)
CPT/HCPCS: 82040; 82247; 82310; 82374; 82435; 82565; 82947; 84075; 84132; 84155; 84295; 84450; 84460; 84520; 85025; 85610; 85730; 99284

== ENCOUNTER → 2017-05-30 | Outpatient (CLI) | payer MEDICARE, OTHER ==
[2017-04-27 12:47] VITALS: BMI 34.2
[2017-05-30 09:37] LABS: INR 1.57
== END ==
LOC: LAB 09:14
PROVIDERS: ATTEND Family Medicine
DX: D68.32 Hemorrhagic disorder due to extrinsic circulating anticoagulants (principal); K62.5 Hemorrhage of anus and rectum
CPT/HCPCS: 36415; 85014; 85018; 85610

== ENCOUNTER → 2017-06-08 | Outpatient (CLI) | payer MEDICARE, OTHER ==
[2017-04-27 12:47] VITALS: BMI 34.2
== END ==
LOC: LAB 16:09
PROVIDERS: ATTEND Family Medicine
DX: R71.0 Precipitous drop in hematocrit (principal); D64.9 Anemia, unspecified
CPT/HCPCS: 36415; 85014; 85018

== ENCOUNTER → 2017-08-02 | Outpatient (CLI) | payer MEDICARE, OTHER ==
[2017-04-27 12:47] VITALS: BMI 34.2
[~2017-08-02] MED LIST changes: -RANI-324 PO; +RANI-366 PO
== END ==
LOC: LAB 10:47
PROVIDERS: ATTEND Urology
DX: R97.20 Elevated prostate specific antigen [PSA] (principal)
CPT/HCPCS: 36415; 84153

== ENCOUNTER → 2017-09-08 | Outpatient (CLI) | payer MEDICARE, OTHER ==
[2017-04-27 12:47] VITALS: BMI 34.2
[~2017-09-08] MED LIST changes: -AMIO200T47 PO; +AMIO200T49 PO; -BENA10TA4 PO; +BENA10TA55 PO; -BENA5TAB32 PO; +BENA5TAB33 PO; +IPRA3AMP10 IH; +PANT20TA27 PO
[2017-09-08 09:06] LABS: PLATELET COUNT, AUTOMATED 389 K/uL (150-450)
== END ==
LOC: LAB 08:40
PROVIDERS: ATTEND Family Medicine
DX: I48.2 Chronic atrial fibrillation (principal); J44.9 Chronic obstructive pulmonary disease, unspecified; K21.9 Gastro-esophageal reflux disease without esophagitis; I10 Essential (primary) hypertension
CPT/HCPCS: 36415; 82040; 82247; 82310; 82374; 82435; 82565; 82947; 84075; 84132; 84155; 84295; 84450; 84460; 84520; 85025

== ENCOUNTER → 2017-10-12 | Outpatient (CLI) | payer MEDICARE, OTHER ==
[2017-04-27 12:47] VITALS: BMI 34.2
== END ==
LOC: LAB 08:09
PROVIDERS: ATTEND Family Medicine
DX: R60.9 Edema, unspecified (principal)
CPT/HCPCS: 36415; 82310; 82374; 82435; 82565; 82947; 84132; 84295; 84520

== ENCOUNTER → 2017-10-26 | Outpatient (CLI) | payer MEDICARE, OTHER ==
[2017-04-27 12:47] VITALS: BMI 34.2
[2017-10-26 08:48] LABS: PLATELET COUNT, AUTOMATED 369 K/uL (150-450)
--- NOTE | 2017-10-26 10:41 | RADIOLOGY IMAGING REPORT ---
FAC[place] [facility] [place]IENT NAME: Shaggy Roland : 1940 MR: [id number] V: [id number] EXAM DATE: ORDERING PHYSICIAN: ALAINA VALENCIA TECHNOLOGIST: [place] [facility] [place]: Shaggy Roland : 1940 Visit/Account:[id number] Date of Sevice: 10/26/2017 EXAMINATION: PA and Lateral Chest 10/26/2017 9:17 AM HISTORY: increase oxygen requirement. History of COPD and CHF. Shortness of breath. COMPARISON: 04/27/2017 FINDINGS: Cardiomediastinal contours: Stable cardiomegaly. Transvenous pacemaker lead position is unchanged. Lungs and pleura: Vasculature is prominent but similar to previous. No definite overt parenchymal ed richard. Markings in both bases are fairly similar to previous. No definite effusions although the righ t costophrenic angle is blunted on the frontal view and the left angle is also somewhat obscured, wit h angles are sharp on the lateral. Bones/soft tissues: Mid to lower thoracic vertebral body height loss, not significantly progressed co mparing with chest CT 07/27/2016 Left upper quadrant surgical clips. IMPRESSION: 1. Cardiomegaly. Pulmonary vascular prominence is similar to previous. 2. No clear acute overt pulmonary edema. 3. Bibasilar markings could be atelectasis or scarring. Infiltrate cannot be excluded confidently, particularly in the left base. Report Dictated By: Marcos Mohr MD at 10/26/2017 10:33 AM Report E-Signed By: Marcos Mohr MD at 10/26/2017 10:37 AM WSN:[email or web address]
== END ==
LOC: LAB 08:30
PROVIDERS: ATTEND Family Medicine
DX: I51.7 Cardiomegaly (principal); J44.9 Chronic obstructive pulmonary disease, unspecified; I50.9 Heart failure, unspecified; R06.02 Shortness of breath
CPT/HCPCS: 36415; 71046; 82310; 82374; 82435; 82565; 82947; 84132; 84295; 84443; 84520; 85025

== ENCOUNTER → 2017-11-28 | Outpatient (CLI) | payer MEDICARE, OTHER ==
[2017-04-27 12:47] VITALS: BMI 34.2
[~2017-11-28] MED LIST changes: +PRED20TA6 PO
--- NOTE | 2017-11-28 11:51 | RADIOLOGY IMAGING REPORT ---
[facility] PATIENT NAME: Shaggy Roland : 1940 MR: [id number] V: [id number] EXAM DATE: ORDERING PHYSICIAN: ALAINA VALENCIA TECHNOLOGIST: Location: [facility] Patient: Shaggy Roland : 1940 Visit/Account:[id number] Date of Sevice: 11/28/2017 CHEST PA AND LAT Additional pertinent History: COPD. COMPARISON STUDIES: 10/26/2017 FINDINGS: Support lines and catheters: Cardiac transvenous pacer from the left subclavian approach Lungs and Pleura: Persistent left pleural reactive changes. No distinct infiltrate, consolidation o r effusions.. Heart and vasculature: Negative. Jojo and Mediastinum: Negative. Bones and Chest wall: Mild central compression changes similar to the previous study within the midt horacic spine Upper Abdomen: Postsurgical changes in the left upper quadrant IMPRESSION: 1. Pleural reactive changes in the left lower lung lingular segment. No significant interval change when compared to the previous study Report Dictated By: Torrey Pendleton MD at 11/28/2017 11:41 AM Report E-Signed By: Torrey Pendleton MD at 11/28/2017 11:47 AM WSN:[email or web address]
== END ==
LOC: LAB 11:04
PROVIDERS: ATTEND Family Medicine
DX: J44.9 Chronic obstructive pulmonary disease, unspecified (principal)
CPT/HCPCS: 71046

== ENCOUNTER → 2017-11-28 | Outpatient (CLI) | payer MEDICARE, OTHER ==
[2017-04-27 12:47] VITALS: BMI 34.2
[2017-11-28 11:41] LABS: PLATELET COUNT, AUTOMATED 387 K/uL (150-450)
== END ==
LOC: LAB 10:58
PROVIDERS: ATTEND Family Medicine
DX: J44.9 Chronic obstructive pulmonary disease, unspecified (principal); N18.9 Chronic kidney disease, unspecified
CPT/HCPCS: 36415; 82040; 82247; 82310; 82374; 82435; 82565; 82947; 84075; 84132; 84155; 84295; 84450; 84460; 84520; 85025

== ENCOUNTER 2017-11-29 09:00 | Outpatient (RCR) | payer MEDICARE, OTHER ==
[2017-04-27 12:47] VITALS: BMI 34.2
== END 2017-12-05 ==
LOC: CARD 09:00
PROVIDERS: ATTEND Family Medicine
DX: J44.9 Chronic obstructive pulmonary disease, unspecified (principal)
CPT/HCPCS: G0424 ×16

== ENCOUNTER 2017-12-06 13:30 | Outpatient (RCR) | payer MEDICARE, OTHER ==
[2017-04-27 12:47] VITALS: BMI 34.2
[2017-12-15] MEDS ORDERED: APIX5TAB PO (17:07)
[2017-12-16] MEDS ORDERED: FURO-47 PO (13:55)
[2018-01-02] MEDS ORDERED: PANT20TA27 PO (17:49)
== END 2017-12-06 18:00 | disposition home or self-care (01) ==
LOC: CARD 13:30
PROVIDERS: ATTEND Family Medicine
DX: J44.9 Chronic obstructive pulmonary disease, unspecified (principal)
CPT/HCPCS: G0424

== ENCOUNTER → 2017-12-07 | Outpatient (CLI) | payer MEDICARE, OTHER ==
[2017-04-27 12:47] VITALS: BMI 34.2
--- NOTE | 2017-12-07 11:30 | RADIOLOGY IMAGING REPORT ---
FACILITY: [facility] PATIENT NAME: Shaggy Roland : 1940 MR: [id number] V: [id number] EXAM DATE: ORDERING PHYSICIAN: ALAINA VALENCIA TECHNOLOGIST: Location: [facility] [place] Patient: Shaggy Roland : 1940 Visit/Account:[id number] Date of Sevice: 12/07/2017 Exam type: CHEST PA AND LAT History: increase sob Comparison: November 28, 2017. Findings: Patient has made a limited inspiratory effort with crowding the bronchovascular markings bilaterally. There is increased linear stranding seen in the lung bases which may represent platelike atelectasi s. There is additional dense airspace consolidation in the medial left lower lobe that appears sligh tly more progressive with air bronchograms present. Blunting left costophrenic angle also noted ther e is mild cephalization of the pulmonary vascular markings. The cardiac silhouette is mildly enlarge d but unchanged. Cardiac pacemaker again noted. There are surgical clips left upper quadrant of abd omen. IMPRESSION: 1. Hypoventilatory changes from a limited inspiratory effort Cephalization of the pulmonary vascular markings may be related to mild pulmonary edema. Clinical co rrelation needed Linear stranding in the lung bases slightly increased which may represent plate like atelectasis Airspace consolidation the medial left lung base with air bronchograms appears slightly more prominen t. This represents an interval change when compared to a prior CT the chest from July 27, 2016 Upon the clinical presentation a repeat CT of the chest may be helpful for further evaluation Report Dictated By: Luma Mirza MD at 12/07/2017 11:20 AM Report E-Signed By: Luma Mirza MD at 12/07/2017 11:25 AM WSN:[email or web address]
== END ==
LOC: RAD 09:34
PROVIDERS: ATTEND Family Medicine
DX: J98.11 Atelectasis (principal); J81.1 Chronic pulmonary edema; R91.8 Other nonspecific abnormal finding of lung field
CPT/HCPCS: 71046

== ENCOUNTER → 2017-12-08 | Outpatient (CLI) | payer MEDICARE, OTHER ==
[2017-04-27 12:47] VITALS: BMI 34.2
[~2017-12-08] MED LIST changes: +IOPAMIDOL 76% 75 ML INFUS BTL 75 ML ONE; +NS(*) 0.9% 50 ML BAG 50 ML ONE
--- NOTE | 2017-12-08 16:08 | RADIOLOGY IMAGING REPORT ---
FACILITY: [facility] [place] PATIENT NAME: Shaggy Roland : 1940 MR: [id number] V: [id number] EXAM DATE: ORDERING PHYSICIAN: ALAINA VALENCIA TECHNOLOGIST: Location: [facility] Patient: Shaggy Roland : 1940 Visit/Account:[id number] Date of Sevice: 12/08/2017 CTA CHEST WW/O CNTR (PULM ANG) HISTORY: Abnormal x-ray, hypoxemia, consolidation, tachypnea ADDITIONAL HISTORY: None. TECHNIQUE: CTA chest with intravenous contrast. Axial imaging acquired following administration of IV contrast timed for maximum opacification of the pulmonary arterial vasculature. Slab 3-D MIP jamie nstructed images were also created for further evaluation and interpretation. Reconstruction of the [facility] data set includes multiplanar 2-D in the sagittal and coronal planes and 3-D reconstructed marcin nal slab MIP series. 3-D images were created by the technologist. Dose Lowering Technique One of the following dose optimization techniques was utilized in the performance of this exam: Autom ated exposure control; adjustment of the mA and/or kV according to the patient's size; or use of an i terative reconstruction technique. Specific details can be referenced in the facility's radiology C T exam operational policy. CONTRAST: 75 mL Isovue-370 COMPARISON: Chest CT July 27, 2016 FINDINGS: Lungs/pleura: Coarse linear stranding in the right lower lobe similar to the prior study as is marke d elevation of the right hemidiaphragm. Chronic atelectasis in the inferior lingula appears relative ly unchanged. There is increasing airspace consolidation with air bronchograms in the left lower lob e which may represent progressive atelectasis although superimposed infiltrate is difficult to exclud e Heart/vessels: The cardiac silhouette is markedly enlarged and appears increased when compared to th e prior study. The pulmonary arteries appear dilated although similar to the prior study. There is a paucity of a contrast seen in the segmental and subsegmental arterial branches to both lower lobes left more so than right. Given the excellent contrast bolus in the pulmonary arterial tree this find ing is worrisome for low volume pulmonary emboli Mediastinum/lymph nodes: Negative. Visualized upper abdomen: Negative. Bones/soft tissues: Extensive spondylotic changes of the thoracic spine Additional findings: None IMPRESSION: The coarse linear stranding in the right lower lobe is similar to the prior study along with marked e levation of the right hemidiaphragm likely representing chronic scarring There is increased coarse linear stranding and air bronchograms the left lower lobe. Although this c ould represent progressive chronic atelectasis the differential diagnosis would include a superimpose d acute infiltrate. There is diminished contrast in the segmental and subsegmental arterial branches to the lower lobes w hich is worrisome for small volume bilateral pulmonary emboli as described above Severe cardiomegaly with multichamber enlargement has increased when compared the prior study Dilated pulmonary arteries although appears similar to the prior study. Results were called to ALAINA VALENCIA at 12/08/2017 4:00 PM. Report Dictated By: Luma Mirza MD at 12/08/2017 3:49 PM Report E-Signed By: Luma Mirza MD at 12/08/2017 4:04 PM WSN:[email or web address]
== END ==
LOC: CT 07:18
PROVIDERS: ATTEND Family Medicine
DX: I51.7 Cardiomegaly (principal); J44.9 Chronic obstructive pulmonary disease, unspecified
CPT/HCPCS: 71275; J7050; Q9967

== ENCOUNTER → 2017-12-15 | Outpatient (CLI) | payer MEDICARE, OTHER ==
[2017-04-27 12:47] VITALS: BMI 34.2
[~2017-12-15] MED LIST changes: +FURO-47 PO; -IOPAMIDOL 76% 75 ML INFUS BTL 75 ML ONE; -NS(*) 0.9% 50 ML BAG 50 ML ONE
== END ==
LOC: RESP 02:09
PROVIDERS: ATTEND Internal Medicine
DX: J98.4 Other disorders of lung (principal)
CPT/HCPCS: 94060

== ENCOUNTER → 2017-12-19 | Outpatient (CLI) | payer MEDICARE, OTHER ==
[2017-04-27 12:47] VITALS: BMI 34.2
[2017-12-19 14:51] LABS: PLATELET COUNT, AUTOMATED 361 K/uL (150-450)
== END ==
LOC: LAB 14:10
PROVIDERS: ATTEND Family Medicine
DX: I48.2 Chronic atrial fibrillation (principal); N18.9 Chronic kidney disease, unspecified
CPT/HCPCS: 36415; 82310; 82374; 82435; 82565; 82947; 84132; 84295; 84520; 85025

== ENCOUNTER 2017-12-26 12:26 | Inpatient (IN) | payer MEDICARE, OTHER ==
[~2017-12-26] VITALS: Ht 182.9 cm; Wt 122.5 kg
--- NOTE | 2017-12-26 12:33 | ER Report ---
History and Physical Time Seen By MD: 12:33 HPI/ROS CHIEF COMPLAINT: Increased dyspnea and swelling in the lower extremities. HISTORY OF PRESENT ILLNESS: This is a 77-year-old male presents to the emergency department for increased dyspnea and lower extremities swelling. Patient has a long-standing history of COPD and congestive heart failure. Patient states that he's had over the last week or so some aches and chills as well as increased w ork of breathing, over the last couple of months E's had increased swelling in his lower extremities however today significantly worse, "the worst it's been". The swelling is bilateral. Patient has been taking furosemide regularly to combat the edema. Denies chest pain. Denies nausea or vomiting. No headaches. No visual changes. No rashes. REVIEW OF SYSTEMS: Constitutional: No fever, no chills. Eyes: No discharge. ENT: No sore throat. Cardiovascular: No chest pain, no palpitations. Respiratory: As above. Gastrointestinal: No abdominal pain, no vomiting. Genitourinary: No hematuria. Musculoskeletal: As above. Skin: No rashes. Neurological: No headache. Allergies: Coded Allergies: No Known Drug Allergies (Unverified , 12/26/17) Home Meds Active Scripts Apixaban (ELIQUIS) 5 Mg Tablet, 1 TAB PO BID for 30 Days, #60 TAB Prov:ALAINA VALENCIA MD 12/15/17 Pantoprazole Sodium (PANTOPRAZOLE SODIUM) 20 Mg Tablet.dr, 20 MG PO QDAY for 30 Days, #30 TAB.SR Prov:ALAINA VALENCIA MD 11/28/17 Ipratropium/Albuterol Sulfate (IPRAT-ALBUT 0.5-3(2.5) MG/3 ML) 3 Ml Ampul.neb, 1 VIAL IH TID for 30 Days, #90 INH 4 Refills Prov:ALAINA VALENCIA MD 11/09/17 Polysaccharide Iron Complex (POLY-IRON) 150 Mg Cap, 150 MG PO daily , #90 CAP 4 Refills Prov:ALAINA VALENCIA MD 08/08/17 Carvedilol (CARVEDILOL) 25 Mg Tablet, 1 TAB PO BID for 90 Days, #180 TAB 4 Refills Prov:ALAINA VALENCIA MD 05/09/17 Reported Medications Benazepril Hcl (BENAZEPRIL HCL) 5 Mg Tablet 12/26/17 Furosemide (FUROSEMIDE) 40 Mg Tablet, 1 TAB PO QAM, TAB 12/16/17 Oxygen (Oxygen) 2 L Inha, 3 L INH 3 L continuously 01/08/10 Past Medical/Surgical History Plan the patient has a past medical and surgical history of migraines, A. fib, ICD, pulmonary embolus, hypertension, COPD, CHF, GERD, cholecystectomy, intermittent prostatitis, rectal fracture, wears glasses, hearing aides, hard of hearing, skin cancer. Reviewed Nurses Notes: Yes Hx Smoking: Yes (40yrs ago) Smoking Status: Former Smoker Exposure to Second Hand Smoke?: No Hx Substance Use Disorder: No Hx Alcohol Use: No Constitutional Vital Sign - Last 24 Hours 12/26/17 12/26/17 12/26/17 12/26/17 12:26 12:30 12:34 12:39 Temp 97.8 Pulse ??? 88 Resp 16 B/P (MAP) 122/68 122/68 (86) Pulse Ox 93 O2 Delivery Room Air O2 Flow Rate 3.0 12/26/17 12/26/17 12/26/17 12/26/17 12:41 12:56 13:01 13:11 Pulse 96 92 93 Resp 19 24 29 B/P (MAP) 118/77 (91) Pulse Ox 93 93 93 12/26/17 12/26/17 12/26/17 12/26/17 13:14 13:14 13:16 13:30 Pulse 88 97 Resp 18 25 B/P (MAP) 116/67 (83) Pulse Ox 92 100 O2 Delivery Nasal Cannula O2 Flow Rate 3.0 12/26/17 12/26/17 12/26/17 12/26/17 13:31 13:46 14:00 14:01 Pulse 84 83 80 Resp 17 25 17 B/P (MAP) 114/77 (89) Pulse Ox 93 93 95 12/26/17 12/26/17 12/26/17 12/26/17 14:06 14:21 14:30 14:36 Pulse 83 92 92 Resp 15 25 32 B/P (MAP) 118/80 (93) Pulse Ox 96 89 85 12/26/17 14:41 Pulse 84 Resp 14 Pulse Ox 92 Physical Exam General Appearance: The patient is alert, has no immediate need for airway protection and no signs of toxicity, although on 3 L nasal cannula he does have increased work of breathing while talking. Eyes: Pupils equal and round no pallor or injection. ENT, Mouth: Mucous membranes are moist. Respiratory: There are no retractions, lungs are clear to auscultation. Cardiovascular: Regular rate and rhythm, very distant, no murmurs, clicks or rubs. No bruits. Gastrointestinal: Abdomen is very round, firm and non tender, no masses, bowel sounds normal. No abdominal bruits. Neurological: Alert and oriented 4. Moving all extremity. Following all commands. No focal neuro deficits. Skin: Warm and dry, no rashes. No erythema or cellulitis. Musculoskeletal: Neck is supple non tender. Extremities bilateral lower extremity swelling with 2-3+ pitting edema bilaterally from the knees distally. R calf measuring 46.5cm, L calf measuring 45.2cm. DIFFERENTIAL DIAGNOSIS: After history and physical exam differential diagnosis was considered for shortness of breath including but not limited to pulmonary infectious process, COPD, asthma, pulmonary embolus and congestive heart failure. Medical Decision Making Data Points Result Diagram: 12/26/17 1318 12/26/17 1318 Laboratory Hematology Test 12/26/17 13:18 12/26/17 13:20 Red Blood Count 4.53 M/uL (4.00-5.60) Mean Corpuscular Volume 72.4 fL (80.0-96.0) Mean Corpuscular Hemoglobin 21.1 pg (26.0-33.0) Mean Corpuscular Hemoglobin Concent 29.1 g/dL (32.0-36.0) Red Cell Distribution Width 19.1 % (11.5-14.5) Mean Platelet Volume 8.3 fL (7.2-11.1) Neutrophils (%) (Auto) 60.8 % (39.4-72.5) Lymphocytes (%) (Auto) 20.7 % (17.6-49.6) Monocytes (%) (Auto) 16.5 % (4.1-12.4) Eosinophils (%) (Auto) 1.2 % (0.4-6.7) Basophils (%) (Auto) 0.8 % (0.3-1.4) Nucleated RBC Relative Count (auto) 0.0 /100WBC Neutrophils # (Auto) 6.2 K/uL (2.0-7.4) Lymphocytes # (Auto) 2.1 K/uL (1.3-3.6) Monocytes # (Auto) 1.7 K/uL (0.3-1.0) Eosinophils # (Auto) 0.1 K/uL (0.0-0.5) Basophils # (Auto) 0.1 K/uL (0.0-0.1) Nucleated RBC Absolute Count (auto) 0.00 K/uL Sodium Level 141 mmol/L (137-145) Potassium Level 4.0 mmol/L (3.5-5.0) Chloride Level 96 mmol/L (98-107) Carbon Dioxide Level 38 mmol/L (22-30) Blood Urea Nitrogen 26 mg/dl (9-21) Creatinine 1.40 mg/dl (0.66-1.25) Glomerular Filtration Rate Calc 48.9 Random Glucose 121 mg/dl (75-110) Calcium Level 8.5 mg/dl (8.4-10.2) Total Bilirubin 0.5 mg/dl (0.2-1.3) Aspartate Amino Transf (AST/SGOT) 11 U/L (0-35) Alanine Aminotransferase (ALT/SGPT) 17 U/L (0-56) Alkaline Phosphatase 118 U/L (0-126) Troponin I < 0.012 ng/ml B-Type Natriuretic Peptide 1870 pg/ml (0-100) Total Protein 7.7 g/dl (6.3-8.2) Albumin 3.5 g/dl (3.5-5.0) Magnesium Level 2.1 mg/dl (1.7-2.2) Chemistry Test 12/26/17 13:18 12/26/17 13:20 White Blood Count 10.3 k/uL (4.5-11.0) Red Blood Count 4.53 M/uL (4.00-5.60) Hemoglobin 9.6 g/dL (14.0-18.0) Hematocrit 32.8 % (42.0-52.0) Mean Corpuscular Volume 72.4 fL (80.0-96.0) Mean Corpuscular Hemoglobin 21.1 pg (26.0-33.0) Mean Corpuscular Hemoglobin Concent 29.1 g/dL (32.0-36.0) Red Cell Distribution Width 19.1 % (11.5-14.5) Platelet Count 461 K/uL (150-450) Mean Platelet Volume 8.3 fL (7.2-11.1) Neutrophils (%) (Auto) 60.8 % (39.4-72.5) Lymphocytes (%) (Auto) 20.7 % (17.6-49.6) Monocytes (%) (Auto) 16.5 % (4.1-12.4) Eosinophils (%) (Auto) 1.2 % (0.4-6.7) Basophils (%) (Auto) 0.8 % (0.3-1.4) Nucleated RBC Relative Count (auto) 0.0 /100WBC Neutrophils # (Auto) 6.2 K/uL (2.0-7.4) Lymphocytes # (Auto) 2.1 K/uL (1.3-3.6) Monocytes # (Auto) 1.7 K/uL (0.3-1.0) Eosinophils # (Auto) 0.1 K/uL (0.0-0.5) Basophils # (Auto) 0.1 K/uL (0.0-0.1) Nucleated RBC Absolute Count (auto) 0.00 K/uL Glomerular Filtration Rate Calc 48.9 Calcium Level 8.5 mg/dl (8.4-10.2) Total Bilirubin 0.5 mg/dl (0.2-1.3) Aspartate Amino Transf (AST/SGOT) 11 U/L (0-35) Alanine Aminotransferase (ALT/SGPT) 17 U/L (0-56) Alkaline Phosphatase 118 U/L (0-126) Troponin I < 0.012 ng/ml B-Type Natriuretic Peptide 1870 pg/ml (0-100) Total Protein 7.7 g/dl (6.3-8.2) Albumin 3.5 g/dl (3.5-5.0) Magnesium Level 2.1 mg/dl (1.7-2.2) EKG/Imaging EKG Interpretation 12 lead EKG: Time of EKG 1318. Rhythm: Atrial fibrillation, rate of 85 bpm. [place]: normal QRS: normal ST segments: No ST depression or elevation identified. No significant changes from the 04/25/2017 EKG other than low voltage EKG. Imaging Technique: CHEST PA AND LAT HISTORY: RESP DISTRESS Comparison studies: Chest radiographs December 07, 2017, CT chest December 08, 2017 FINDINGS: Hazy and linear left basilar opacities are again noted. There is a low degree of inspiratory effort. The lung apices are clear. The cardiomediastinal silhouette, left chest wall pacer and lead are unchanged. IMPRESSION: 1. No significant interval change. Report Dictated By: Jair Da Silva DO at 12/26/2017 1:59 PM Report E-Signed By: Jair Da Silva DO at 12/26/2017 2:01 PM WSN:[facility] ED Course/Re-evaluation Clinical Indication for ER IV: IV Access ED Course The patient was admitted to room. A history physical were obtained. Differential diagnoses were considered. An IV was started. A CBC, CMP, troponin and d-dimer were obtained. CBC showing H&H 9.6 and 32.8, platelets 461, chemistry showing BUN 26, creatinine 1.4, negative troponin, BNP 1870.Chest x-ray showing no significant changes from the previous chest x-rays with left basilar opacities. The patient has had increased O2 demand's more specifically over the last several days with the inability to fully ambulate without having increased shortness of breath, with the notable increase in lower extremity swelling bilaterally, I did recommend an admission to the hospital, the patient was agreeable, I did speak with Dr. Viviane Mcintyre, he accepted the patient in the hospitalist services for CHF exacerbation. The patient was also given 40 mg of IV Lasix. 12/26/2017 2:23:46 pm I did speak with Dr. Viviane Mcintyre, the patient will be admitted to the medical floor for congestive heart failure exacerbation. Decision to Disposition Date: Dec 26, 2017 Decision to Disposition Time: 14:17 Depart Departure Latest Vital Signs Vital Signs Date Time Temp Pulse Resp B/P (MAP) Pulse Ox O2 Delivery O2 Flow Rate FiO2 12/26/17 14:41 84 14 92 12/26/17 14:30 118/80 (93) 12/26/17 13:14 Nasal Cannula 3.0 12/26/17 12:30 97.8 Impression: Primary Impression: CHF exacerbation Condition: Condition Unchanged Disposition: Admitted from ER Referrals: ALAINA VALENCIA MD (PCP) Problem Qualifiers Primary Impression: CHF exacerbation Heart failure type: unspecified Qualified Codes: I50.9 - Heart failure, unspecified RAFAELA ROBERTSON [facility]- Dec 26, 2017 12:33
[2017-12-26] MEDS ORDERED: methylPREDNIS SUCC 125 MG/2ML IVP ONE (12:50)
[2017-12-26] MEDS ORDERED: ALBUTEROL/IPRATROPIUM 3 ML NEB NEB ONE (12:50)
[2017-12-26 13:24] LABS: PLATELET COUNT, AUTOMATED 461 K/uL (150-450)
[2017-12-26] MEDS ORDERED: ONDANSETRON 4 MG/2 ML VIAL IVP ONE (13:30)
[2017-12-26] MEDS ORDERED: FUROSEMIDE 40 MG/4 ML VIAL IVP ONE (13:45)
--- NOTE | 2017-12-26 14:05 | RADIOLOGY IMAGING REPORT ---
FACILITY: [facility] PATIENT NAME: Shaggy Roland : 1940 MR: [id number] V: [id number] EXAM DATE: ORDERING PHYSICIAN: RAFAELA ROBERTSON TECHNOLOGIST: Location: [facility] [place] Patient: Shaggy Roland : 1940 Visit/Account:[id number] Date of Sevice: 12/26/2017 Technique: CHEST PA AND LAT HISTORY: RESP DISTRESS Comparison studies: Chest radiographs December 07, 2017, CT chest December 08, 2017 FINDINGS: Hazy and linear left basilar opacities are again noted. There is a low degree of inspirato ry effort. The lung apices are clear. The cardiomediastinal silhouette, left chest wall pacer and l ead are unchanged. IMPRESSION: 1. No significant interval change. Report Dictated By: Jair Da Silva DO at 12/26/2017 1:59 PM Report E-Signed By: Jair Da Silva DO at 12/26/2017 2:01 PM WSN:[email or web address]
[2017-12-26 15:20] VITALS: BP 112/71
[2017-12-26] MEDS ORDERED: BENA5TAB33 (15:45)
[2017-12-26] MEDS ORDERED: INFLUENZA VIRUS VAC 0.5ML SYR IM ONLY ONE (16:20)
[2017-12-26] MEDS ORDERED: FLUSH 10 ML SYR IVP PRN (16:20)
[2017-12-26] MEDS ORDERED: ACETAMINOPHEN 325 MG TAB PO PRN (16:20)
[2017-12-26] MEDS: ALBUTEROL/IPRATROPIUM 3 ML NEB NEB SCH (16:44)
--- NOTE | 2017-12-26 17:04 | History & Physical ---
History of Present Illness Chief Complaint Short of breath and leg swelling History of Present Illness 77yo male with PMHx significant for pulmonary hypertension, COPD, STEPHANIE, recurrent GI bleeding, chronic a-fib s/p ablation, pacemaker/defibrillator. He reports onset of increasing dyspnea on exertion, lower extremity swelling over past 3-4 weeks. He denies any CP. Some cough with scant sputum. No fevers or chills. He sleeps in a recliner. He occasionally awakens short of breath and coughing/gagging. He has a history of STEPHANIE, but has not been wearing his BiPAP for "a long time" due to intolerance. He had his diuretic increased recently, but did not appreciate any improvement. He had anticoagulation switched from warfarin to Eliquis recently. He had a CT pulmonary angiogram done a few weeks ago showing potential bibasilar PE. He has not had any bleeding on [facility] Eliquis. He was evaluated in [facility] ER and recommended for admission. History Problems: (1) HTN (hypertension) Status: Chronic (2) COPD (chronic obstructive pulmonary disease) Status: Chronic (3) GERD (gastroesophageal reflux disease) Status: Chronic (4) Skin cancer of face Status: Chronic (5) H/O ventricular tachycardia Status: Chronic (6) Atrial fibrillation Status: Chronic (7) Obesity (BMI 30-39.9) Status: Chronic (8) Ventricular dysrhythmia Status: Chronic (9) Hx of pulmonary embolus Status: Chronic (10) History of automatic internal cardiac defibrillator (AICD) Status: Chronic (11) STEPHANIE treated with BiPAP Status: Chronic (12) GIB (gastrointestinal bleeding) Status: Chronic (13) History of cholecystectomy Status: Resolved (14) Hx of splenectomy Status: Resolved (15) Hx of transurethral resection of prostate Status: Resolved (16) History of radiofrequency ablation procedure for cardiac arrhythmia Status: Chronic Home Meds Active Scripts Apixaban (ELIQUIS) 5 Mg Tablet, 1 TAB PO BID for 30 Days, #60 TAB Prov:ALAINA VALENCIA MD 12/15/17 Pantoprazole Sodium (PANTOPRAZOLE SODIUM) 20 Mg Tablet.dr, 20 MG PO QDAY for 30 Days, #30 TAB.SR Prov:ALAINA VALENCIA MD 11/28/17 Ipratropium/Albuterol Sulfate (IPRAT-ALBUT 0.5-3(2.5) MG/3 ML) 3 Ml Ampul.neb, 1 VIAL IH TID for 30 Days, #90 INH 4 Refills Prov:ALAINA VALENCIA MD 11/09/17 Polysaccharide Iron Complex (POLY-IRON) 150 Mg Cap, 150 MG PO daily , #90 CAP 4 Refills Prov:ALAINA VALENCIA MD 08/08/17 Carvedilol (CARVEDILOL) 25 Mg Tablet, 1 TAB PO BID for 90 Days, #180 TAB 4 Refills Prov:ALAINA VALENCIA MD 05/09/17 Reported Medications Benazepril Hcl (BENAZEPRIL HCL) 5 Mg Tablet 12/26/17 Furosemide (FUROSEMIDE) 40 Mg Tablet, 1 TAB PO QAM, TAB 12/16/17 Oxygen (Oxygen) 2 L Inha, 3 L INH 3 L continuously 01/08/10 Allergies: Coded Allergies: No Known Drug Allergies (Unverified , 12/26/17) Patient History: FH: CO (myocardial infarction) FATHER MOTHER FH: diabetes mellitus BROTHER OR SISTER BROTHER OR SISTER BROTHER OR SISTER BROTHER OR SISTER BROTHER OR SISTER BROTHER OR SISTER CHILD Hx Smoking: Yes (40yrs ago) Smoking Status: Former Smoker Exposure to Second Hand Smoke?: No Caffeine Intake: Coffee Caffeine/Cups Per Day: 1 cup per day Hx Alcohol Use: No Hx Substance Use Disorder: No Social Drug Use: Never Review of Systems Constitutional: No Fever, No Chills, No Night Sweats Neurological: No Syncope, No Confusion Eyes: No Vision Change ENT: No Hearing Loss Respiratory: Shortness of Breath, Cough; No Wheezing Gastrointestinal: No Nausea, No Vomiting, No Diarrhea, No Hematemesis, No Hematochezia, No Melena, No Abdominal Pain Genitourinary: No Dysuria Musculoskeletal: No Pain Exam Vital Signs Vital Signs Date Time Temp Pulse Resp B/P (MAP) Pulse Ox O2 Delivery O2 Flow Rate FiO2 12/26/17 15:20 97.5 98 28 112/71 (85) 90 Nasal Cannula 3.0 General Appearance: Alert, Awake, No Acute Distress Neuro: No Gross deficits Eyes: PERRLA ENT: Oropharynx Clear Neck: Other (Thick/burns/difficult to assess for JVD) Cardiovascular: Other (Distant tones irregular) Respiratory: Clear to Auscultation (diminished breath sounds at bases) Chest: No Tenderness, Other (pacemaker/defibrillator left upper chest) GI: Abd Soft and Non-Tender (obese/BS present) Extremities: Warm, Perfused, Edema Psych: Alert & Oriented X3 Medical Decision Making Data Points Result Diagram: 12/26/17 1318 12/26/17 1318 Item Value Date Time B-Type Natriuretic Peptide 1870 pg/ml H 12/26/17 1318 Albumin 3.5 g/dl 12/26/17 1318 Total Protein 7.7 g/dl 12/26/17 1318 Troponin I < 0.012 ng/ml 12/26/17 1318 Alkaline Phosphatase 118 U/L 12/26/17 1318 Alanine Aminotransferase (ALT/SGPT) 17 U/L 12/26/17 1318 Aspartate Amino Transf (AST/SGOT) 11 U/L 12/26/17 1318 Total Bilirubin 0.5 mg/dl 12/26/17 1318 Calcium Level 8.5 mg/dl 12/26/17 1318 Magnesium Level 2.1 mg/dl 12/26/17 1320 EKG / Imaging Imaging PATIENT NAME: Shaggy Roland : 1940 MR: [id number] V: [id number] EXAM DATE: [id number] ORDERING PHYSICIAN: RAFAELA ROBERTSON TECHNOLOGIST: Location: [facility] [place] Patient: Shaggy Roland : 1940 Visit/Account:[id number] Date of Sevice: 12/26/2017 Technique: CHEST PA AND LAT HISTORY: RESP DISTRESS Comparison studies: Chest radiographs December 07, 2017, CT chest December 08, 2017 FINDINGS: Hazy and linear left basilar opacities are again noted. There is a low degree of inspiratory effort. The lung apices are clear. The cardiomediast inal silhouette, left chest wall pacer and lead are unchanged. IMPRESSION: 1. No significant interval change. Report Dictated By: Jair Da Silva DO at 12/26/2017 1:59 PM Report E-Signed By: Jair Da Silva DO at 12/26/2017 2:01 PM WSN:[facility] Assessment and Plan Problems: (1) Dyspnea Status: Chronic Assessment & Plan: Most likely multifactorial including COPD, severe pulmonary HTN, anemia, STEPHANIE untreated. He does not appear to have an acute respiratory infection. He does not appear to have pulmonary edema. Will continue his respiratory treatments. Will try to keep oxygen saturations adequate. Will have him begin increasing his oxygen to 6L with activities and for approximately 5 minutes after for recovery. Will resume his BiPAP. Will check echocardiogram. Watch Hgb/Hct. May need to consider transfusion to keep Hgb/Hct >10/30 due to significant heart and lung disease. (2) Chronic atrial fibrillation Status: Chronic Assessment & Plan: Monitor on telemetry. Continue Eliquis for now. (3) STEPHANIE treated with BiPAP Status: Chronic Assessment & Plan: We do not have record of his sleep study. Will empirically start at 15/9cm H2O pressure. Watch closely. (4) Edema Status: Acute Assessment & Plan: He has acute worsening almost certainly due to severe pulmonary HTN exacerbated by the above factors. Will work on keeping his O2 sats acceptable, resuming BiPAP, consider transfusion/evaluate his anemia. Will also continue some diuresis and watch renal function closely. (5) COPD (chronic obstructive pulmonary disease) Status: Chronic Assessment & Plan: He does not appear to have an acute exacerbation at this time. Will continue his O2 and respiratory treatments. (6) Pulmonary hypertension Status: Chronic Assessment & Plan: Severe. Most likely the underlying cause of his current problems. Etiology could be related to COPD, STEPHANIE - untreated, PE. He is anticoagulated on Eliquis. Work on maintaining oxygen saturations. Check echocardiogram. (7) ANEMIA, UNSPECIFIED Copies to: ALAINA VALENCIA MD ; Venous Thromboembolism Antithrombotics Is Pt On Any Antithrombotics?: Yes Exam Sepsis Risk: No Definite Risk LEIGH ANN POMPA MD Dec 26, 2017 17:04
--- NOTE | 2017-12-26 20:08 | EKG ---
FACILITY: [facility] PATIENT NAME: PANCHO CASON : [id number] MR: [id number] V: [id number] EXAM DATE: ORDERING PHYSICIAN: RAFAELA ROBERTSON TECHNOLOGIST: ASHA Test Reason : SWELLING Blood Pressure : / mmHG Vent. Rate : 085 BPM Atrial Rate : 084 BPM P-R Int : 000 ms QRS Dur : 124 ms QT Int : 406 ms P-R-T Axes : 000 261 019 degrees QTc Int : 483 ms Atrial fibrillation Interventricular conduction delay Abnormal ECG Similar to previous Confirmed by LEIGH ANN POMPA ([id number] on 12/27/2017 4:37:45 AM Referred By: JAMA Confirmed By:LEIGH ANN POMPA
[2017-12-26 20:27] VITALS: BP 107/59
[2017-12-26] MEDS: CARVEDILOL 25 MG TABLET PO SCH (20:59)
[2017-12-26] MEDS: APIXABAN 2.5 MG TABLET PO SCH (20:59)
[2017-12-27 00:06] VITALS: BP 114/58
[2017-12-27] MEDS: ALBUTEROL/IPRATROPIUM 3 ML NEB NEB SCH ×3 (05:39→16:58)
[2017-12-27 05:44] LABS: PLATELET COUNT, AUTOMATED 428 K/uL (150-450)
[2017-12-27 06:55] VITALS: BP 100/77
[2017-12-27] MEDS ORDERED: BENAZEPRIL HCL 10 MG TAB PO SCH (09:00)
[2017-12-27] MEDS ORDERED: FUROSEMIDE 40 MG TAB PO SCH (09:00)
[2017-12-27] MEDS ORDERED: FUROSEMIDE 40 MG/4 ML VIAL IVP ONE (10:00)
[2017-12-27] MEDS: CARVEDILOL 25 MG TABLET PO SCH ×2 (10:20→21:01)
[2017-12-27] MEDS: PANTOPRAZOLE SOD 20 MG TABEC PO SCH (10:20)
[2017-12-27] MEDS: APIXABAN 2.5 MG TABLET PO SCH ×2 (10:21→21:00)
[2017-12-27 10:54] VITALS: BP 122/69
--- NOTE | 2017-12-27 12:08 | Hospitalist Progress Note ---
Subjective Progress Notes Subjective He reports continued orthopnea, but breathing better. Physical Exam Vital Signs Date Time Temp Pulse Resp B/P (MAP) Pulse Ox O2 Delivery O2 Flow Rate FiO2 12/27/17 11:25 90 16 12/27/17 11:15 92 Nasal Cannula 3.5 12/27/17 10:54 97.7 122/69 (86) 12/26/17 20:53 30.0 Intake and Output 12/27/17 06:59 Intake Total 950 ml Output Total 1575 ml Balance -625 ml Intake Oral 950 ml Output Urine Total 1575 ml # Voids 2 General Appearance: Alert, Awake, No Acute Distress Respiratory: Other (Insp crackles both bases ) Extremities: No Edema Result Diagram: 12/27/1751912/27/17519 Assessment and Plan Problems: (1) Dyspnea Status: Chronic Assessment & Plan: Most likely multifactorial including COPD, severe pulmonary HTN, anemia, STEPHANIE not adequately treated. He does not appear to have an acute respiratory infection. Will continue his respiratory treatments and give another dose of Lasix. Will try to keep oxygen saturations adequate. Will have him begin increasing his oxygen to 6L with activities and for approximately 5 minutes after for recovery. He can only tolerate home BiPAP for an hour. Will check echocardiogram. Watch Hgb/Hct. May need to consider transfusion to keep Hgb/Hct >10/30 due to significant heart and lung disease. (2) Chronic atrial fibrillation Status: Chronic Assessment & Plan: Monitor on telemetry. Continue Eliquis for now. (3) STEPHANIE treated with BiPAP Status: Chronic Assessment & Plan: We do not have record of his sleep study. Empirically on 15/9cm H2O pressure, but didn't tolerate well like his at home. (4) Edema Status: Acute Assessment & Plan: He has acute worsening almost certainly due to severe pulmonary HTN exacerbated by the above factors. Will work on keeping his O2 sats acceptable, resuming BiPAP, consider transfusion/evaluate his anemia. Will also continue some diuresis and watch renal function closely. (5) COPD (chronic obstructive pulmonary disease) Status: Chronic Assessment & Plan: He does not appear to have an acute exacerbation at this time. Will continue his O2 and respiratory treatments. (6) Pulmonary hypertension Status: Chronic Assessment & Plan: Severe. Most likely the underlying cause of his current problems. Etiology could be related to COPD, STEPHANIE - untreated, PE. He is anticoagulated on Eliquis. Work on maintaining oxygen saturations. Check echocardiogram. (7) ANEMIA, UNSPECIFIED Exam Sepsis Risk: No Definite Risk MARGRET SCHULTE MD Dec 27, 2017 12:08
[2017-12-27 14:28] VITALS: Ht 182.9 cm; Wt 122.5 kg
[2017-12-27 15:09] VITALS: BP 126/73
[2017-12-27 18:49] VITALS: BP 122/66
[2017-12-27 23:16] VITALS: BP 103/59
[2017-12-28] VITALS (8 sets, daily range): BP systolic 91–113; BP diastolic 53–81
[2017-12-28] MEDS: ALBUTEROL/IPRATROPIUM 3 ML NEB NEB SCH ×3 (05:34→18:31)
[2017-12-28 06:43] LABS: PLATELET COUNT, AUTOMATED 429 K/uL (150-450)
[2017-12-28] MEDS: APIXABAN 2.5 MG TABLET PO SCH ×2 (09:00→20:45)
[2017-12-28] MEDS: PANTOPRAZOLE SOD 20 MG TABEC PO SCH (09:00)
[2017-12-28] MEDS: CARVEDILOL 25 MG TABLET PO SCH ×2 (09:00→20:45)
[2017-12-28] MEDS ORDERED: FUROSEMIDE 40 MG TAB PO SCH (09:00)
[2017-12-28 09:47] LABS: PLATELET COUNT, AUTOMATED 442 K/uL (150-450)
--- NOTE | 2017-12-28 10:58 | Hospitalist Progress Note ---
Subjective Progress Notes Subjective This patient was admitted for heart failure. He had no acute events overnight. Patient Complains of: Cardiovascular: No: Chest Pain Respiratory: No: Shortness of Breath Physical Exam Vital Signs Date Time Temp Pulse Resp B/P (MAP) Pulse Ox O2 Delivery O2 Flow Rate FiO2 12/28/17 10:28 97.7 107 12 112/81 (91) 95 Nasal Cannula 3.0 12/26/17 20:53 30.0 Intake and Output 12/28/17 07:00 Intake Total 342 ml Output Total 775 ml Balance -433 ml Intake Oral 342 ml Output Urine Total 775 ml # Bowel Movements 1 Neuro: No Gross deficits Eyes: PERRLA Cardiovascular: Regular Rate and Rhythm, No JVD Respiratory: Clear to Auscultation Extremities: Edema Result Diagram: 12/28/17 0939 12/28/17 0542 Assessment and Plan Problems: (1) Leukocytosis Status: Acute Assessment & Plan: His WBC is increased today, but he is asymptomatic. We will run a urinalysis to search for underlying infection. A repeat CBC is pending for the morning. (2) Acute systolic right heart failure Assessment & Plan: He did present with increased edema and shortness of breath. He has improved after a dose of IV Lasix. His echocardiogram did show an ejection fraction of 50-55%. (3) Pulmonary hypertension, moderate to severe Assessment & Plan: His right ventricular pressure was elevated at 65-70mmHg. (4) Chronic atrial fibrillation Status: Chronic Assessment & Plan: He is on chronic treatment with carvedilol and Eliquis. (5) STEPHANIE treated with BiPAP Status: Chronic Assessment & Plan: He has been unable to tolerate the BiPAP (6) COPD (chronic obstructive pulmonary disease) Status: Chronic Assessment & Plan: He does not appear to have an acute exacerbation at this time. Will continue his O2 and respiratory treatments. (7) ANEMIA, UNSPECIFIED Exam Sepsis Risk: No Definite Risk EUGENIO MENDEZ DO Dec 28, 2017 10:58
[2017-12-29] VITALS (7 sets, daily range): BP systolic 100–118; BP diastolic 66–81
[2017-12-29] MEDS: ALBUTEROL/IPRATROPIUM 3 ML NEB NEB SCH ×3 (05:51→17:00)
[2017-12-29 06:31] LABS: PLATELET COUNT, AUTOMATED 411 K/uL (150-450)
[2017-12-29] MEDS: PANTOPRAZOLE SOD 20 MG TABEC PO SCH (09:28)
[2017-12-29] MEDS: APIXABAN 2.5 MG TABLET PO SCH ×2 (09:28→20:37)
[2017-12-29] MEDS: FUROSEMIDE 40 MG TAB PO SCH (09:29)
[2017-12-29] MEDS: CARVEDILOL 25 MG TABLET PO SCH ×2 (09:29→20:36)
[2017-12-29] MEDS: POLYSACCHARIDE IRON COM 150 MG PO SCH ×2 (10:03→16:40)
--- NOTE | 2017-12-29 15:45 | Hospitalist Progress Note ---
Subjective Progress Notes Subjective He reports that he had an event of SOB during the night. Staff reports that it seemed to resolve with breathing treatments. He reports that he gets events just like this at home and doesn't know the cause. Physical Exam Vital Signs Date Time Temp Pulse Resp B/P (MAP) Pulse Ox O2 Delivery O2 Flow Rate FiO2 12/29/17 15:06 98.0 93 24 111/76 (88) 93 Nasal Cannula 5.0 12/26/17 20:53 30.0 Intake and Output 12/29/17 06:59 Intake Total 1100 ml Output Total 550 ml Balance 550 ml Intake Oral 1100 ml Output Urine Total 550 ml # Voids 1 # Bowel Movements 1 General Appearance: Alert, Awake, No Acute Distress Cardiovascular: Other (Irreg irreg) Respiratory: Clear to Auscultation Extremities: No Edema Result Diagram: 12/29/17 0550 12/28/17 0542 Assessment and Plan Problems: (1) Acute systolic right heart failure Assessment & Plan: Most likely multifactorial including COPD, severe pulmonary HTN, anemia, STEPHANIE not adequately treated. He does not appear to have an acute respiratory infection. Will continue his respiratory treatments. Will have him begin increasing his oxygen to 6L with activities and for approximately 5 minutes after for recovery. He can only tolerate home BiPAP for an hour, but is improving use in the hospital. He has received 2 doses of IV Lasix, which seems to have caused improvement and is now back on his usual oral Lasix. Watch Hgb/Hct. May need to consider transfusion to keep Hgb/Hct >10/30 due to significant heart and lung disease. His echocardiogram did show an ejection fraction of 50-55%. (2) Leukocytosis Status: Acute Assessment & Plan: His WBC is increased yesterday. He was asymptomatic and UA was wnl. WBC now trending down. Will follow. (3) Pulmonary hypertension, moderate to severe Assessment & Plan: His right ventricular pressure was elevated at 65-70mmHg. Etiology could be related to COPD, STEPHANIE - untreated, PE. He is anticoagulated on Eliquis. Work on maintaining oxygen saturations. (4) Chronic atrial fibrillation Status: Chronic Assessment & Plan: He is on chronic treatment with carvedilol and Eliquis. If BP too low and/or symptomatic, might need to consider lowering carvedilol and adding digoxin. Will follow. (5) STEPHANIE treated with BiPAP Status: Chronic Assessment & Plan: See above. Likely, non-adherence to BIPAP has contributed to exacerbation of CHF. (6) COPD (chronic obstructive pulmonary disease) Status: Chronic Assessment & Plan: He does not appear to have an acute exacerbation at this time. Will continue his O2 and respiratory treatments. (7) ANEMIA, UNSPECIFIED Exam Sepsis Risk: No Definite Risk MARGRET SCHULTE MD Dec 29, 2017 15:45
[2017-12-30 03:06] VITALS: BP 107/77
[2017-12-30] MEDS: ALBUTEROL/IPRATROPIUM 3 ML NEB NEB SCH ×2 (05:30→11:02)
[2017-12-30 06:11] LABS: PLATELET COUNT, AUTOMATED 385 K/uL (150-450)
[2017-12-30 06:39] VITALS: BP 116/65
[2017-12-30 07:45] VITALS: BP 109/71
[2017-12-30] MEDS: CARVEDILOL 25 MG TABLET PO SCH (09:38)
[2017-12-30] MEDS: PANTOPRAZOLE SOD 20 MG TABEC PO SCH (09:38)
[2017-12-30] MEDS: APIXABAN 2.5 MG TABLET PO SCH (09:38)
[2017-12-30] MEDS: POLYSACCHARIDE IRON COM 150 MG PO SCH (09:38)
[2017-12-30] MEDS: FUROSEMIDE 40 MG TAB PO SCH (09:38)
[2017-12-30 09:40] VITALS: BP 114/70
--- NOTE | 2017-12-30 09:44 | Hospitalist Depart ---
Discharge Summary Reason for Hosp/Final Diag: (1) Acute systolic right heart failure Hospital Course & Plan: Most likely multifactorial including COPD, severe pulmonary HTN, anemia, STEPHANIE not adequately treated. He does not appear to have an acute respiratory infection. He was given respiratory treatments. Will have him begin increasing his oxygen to 6L with activities and for approximately 5 minutes after for recovery. He can only tolerate home BiPAP for an hour, but is improving use in the hospital. He has received 2 doses of IV Lasix, which seems to have caused improvement and is now back on his usual oral Lasix. His echocardiogram did show an ejection fraction of 50-55%. (2) Leukocytosis Status: Acute Hospital Course & Plan: His WBC was increased 12/28. He was asymptomatic and UA was wnl. WBC has trended down throughout admission. (3) Pulmonary hypertension, moderate to severe Hospital Course & Plan: His right ventricular pressure was elevated at 65- 70mmHg. Etiology could be related to COPD, STEPHANIE - untreated, PE. He is anticoagulated on Eliquis. Encourage BiPAP use. (4) Chronic atrial fibrillation Status: Chronic Hospital Course & Plan: He is on chronic treatment with carvedilol and Eliquis. Continue usual regimen. (5) STEPHANIE treated with BiPAP Status: Chronic Hospital Course & Plan: See above. Likely, non-adherence to BIPAP has contributed to exacerbation of CHF. (6) COPD (chronic obstructive pulmonary disease) Status: Chronic Hospital Course & Plan: He does not appear to have an acute exacerbation at this time. Will continue his O2 and respiratory treatments. (7) ANEMIA, UNSPECIFIED Departure Latest Vital Signs Vital Signs 12/30/17 12/30/17 05:31 06:39 Temp 98.3 Pulse 87 Resp 18 B/P (MAP) 116/65 (82) Pulse Ox 96 O2 Delivery Nasal Cannula O2 Flow Rate 4.0 FiO2 30.0 Weight (Pounds): 270 Weight (Ounces): 2.0 Result Diagram: 12/30/1752112/30/17521 Condition: Improved Discharge: Home, Self Care Discharge Instructions Home Meds Active Scripts Apixaban (ELIQUIS) 5 Mg Tablet, 1 TAB PO BID for 30 Days, #60 TAB Prov:ALAINA VALENCIA MD 12/15/17 Pantoprazole Sodium (PANTOPRAZOLE SODIUM) 20 Mg Tablet.dr, 20 MG PO QDAY for 30 Days, #30 TAB.SR Prov:ALAINA VALENCIA MD 11/28/17 Ipratropium/Albuterol Sulfate (IPRAT-ALBUT 0.5-3(2.5) MG/3 ML) 3 Ml Ampul.neb, 1 VIAL IH TID for 30 Days, #90 INH 4 Refills Prov:ALAINA VALENCIA MD 11/09/17 Polysaccharide Iron Complex (POLY-IRON) 150 Mg Cap, 150 MG PO daily , #90 CAP 4 Refills Prov:ALAINA VALENCIA MD 08/08/17 Carvedilol (CARVEDILOL) 25 Mg Tablet, 1 TAB PO BID for 90 Days, #180 TAB 4 Refills Prov:ALAINA VALENCIA MD 05/09/17 Reported Medications Furosemide (FUROSEMIDE) 40 Mg Tablet, 1 TAB PO QAM, TAB 12/16/17 Oxygen (Oxygen) 2 L Inha, 3 L INH 3 L continuously 01/08/10 Discontinued Reported Medications Benazepril Hcl (BENAZEPRIL HCL) 5 Mg Tablet 12/26/17 Diet: Regular Activity: As Tolerated Special Instructions: Get labs done Tuesday or Tuesday. Follow up with Dr. Valencia regarding results. Copies to: ALAINA VALENCIA MD ; Venous Thromboembolism Antithrombotics Is Pt On Any Antithrombotics?: Yes ALEX LARA Dec 30, 2017 09:44
[2018-01-02] MEDS ORDERED: PANT20TA27 PO (17:49)
== END 2017-12-30 11:10 | disposition home or self-care (01) | DRG 291 ==
LOC: ER 12:40 → MED 14:51
PROVIDERS: ADMIT Internal Medicine; ATTEND Internal Medicine
DX: I11.0 Hypertensive heart disease with heart failure (principal); I50.21 Acute systolic (congestive) heart failure; I26.99 Other pulmonary embolism without acute cor pulmonale; I47.0 Re-entry ventricular arrhythmia; I27.29 Other secondary pulmonary hypertension; J44.9 Chronic obstructive pulmonary disease, unspecified; G47.33 Obstructive sleep apnea (adult) (pediatric); I48.2 Chronic atrial fibrillation; D72.829 Elevated white blood cell count, unspecified; K21.9 Gastro-esophageal reflux disease without esophagitis; D64.9 Anemia, unspecified; N41.1 Chronic prostatitis; E66.9 Obesity, unspecified; Z90.49 Acquired absence of other specified parts of digestive tract; Z85.828 Personal history of other malignant neoplasm of skin; Z87.891 Personal history of nicotine dependence; Z95.0 Presence of cardiac pacemaker; Z91.19 Patient's noncompliance with other medical treatment and regimen; Z79.01 Long term (current) use of anticoagulants; Z68.36 Body mass index [BMI] 36.0-36.9, adult
CPT/HCPCS: 36415; 71046; 81001; 82040; 82247; 82310; 82374; 82435; 82565; 82947; 83735; 83880; 84075; 84132; 84155; 84295; 84450; 84460; 84484; 84520; 85025; 87088; 87186; 93005; 93306; 94640; 94660; J1940; J2930

== ENCOUNTER → 2018-01-02 | Outpatient (CLI) | payer MEDICARE, OTHER ==
[2017-12-27 14:28] VITALS: BMI 36.3
[~2018-01-02] MED LIST changes: +BENA5TAB33
[2018-01-02 15:19] LABS: PLATELET COUNT, AUTOMATED 417 K/uL (150-450)
== END ==
LOC: LAB 14:37
DX: D64.9 Anemia, unspecified (principal); I12.9 Hypertensive chronic kidney disease with stage 1 through stage 4 chronic kidney disease, or unspecified chronic kidney disease; I50.9 Heart failure, unspecified
CPT/HCPCS: 36415; 82310; 82374; 82435; 82565; 82947; 83880; 84132; 84295; 84520; 85025

== ENCOUNTER 2018-01-03 05:47 | Emergency (ER) | payer MEDICARE, OTHER ==
[2017-12-27 14:28] VITALS: Wt 122.5 kg
[~2018-01-03 05:47] MED LIST changes: -FURO80TA70 PO; -NYST15PO4 TP; -POTA20PA25 PO
[2018-01-03] MEDS ORDERED: NS(*) 0.9% 1000 ML BAG 1,000 ML IV ONE (05:51)
--- NOTE | 2018-01-03 06:07 | ER Report ---
History and Physical Time Seen By MD: 06:01 (JOVITA CUEVAS DO) HPI/ROS CHIEF COMPLAINT: Rectal bleeding HISTORY OF PRESENT ILLNESS: 77-year-old male with a history of pulmonary embolism on Eliquis. Patient was discharged from the hospital on 12/30/17. He followed up with Dr Valencia yesterday on 01/01/18. Patient got up tonight and had a bowel movement in the bathroom noting blood. He is short of breath, lightheaded and dizzy. He isn't grossly pale. On arrival by EMS. He has stable vital signs. He goes to the bathroom here and has a large bowel movement of dark black red stool that is grossly blood. REVIEW OF SYSTEMS: Respiratory: As above Cardiovascular: No chest pain, no palpitations. Gastrointestinal: As above Musculoskeletal: No back pain. (JOVITA CUEVAS DO) Allergies: Coded Allergies: No Known Drug Allergies (Unverified , 01/03/18) Home Meds Active Scripts Pantoprazole Sodium (PANTOPRAZOLE SODIUM) 20 Mg Tablet., 20 MG PO QDAY for 90 Days, #90 TAB.SR Prov:ALAINA VALENCIA MD 01/02/18 Apixaban (ELIQUIS) 5 Mg Tablet, 1 TAB PO BID for 30 Days, #60 TAB Prov:ALAINA VALENCIA MD 12/15/17 Ipratropium/Albuterol Sulfate (IPRAT-ALBUT 0.5-3(2.5) MG/3 ML) 3 Ml Ampul.neb, 1 VIAL IH TID for 30 Days, #90 INH 4 Refills Prov:ALAINA VALENCIA MD 11/09/17 Polysaccharide Iron Complex (POLY-IRON) 150 Mg Cap, 150 MG PO daily , #90 CAP 4 Refills Prov:ALAINA VALENCIA MD 08/08/17 Carvedilol (CARVEDILOL) 25 Mg Tablet, 1 TAB PO BID for 90 Days, #180 TAB 4 Refills Prov:ALAINA VALENCIA MD 05/09/17 Reported Medications Furosemide (FUROSEMIDE) 40 Mg Tablet, 1 TAB PO QAM, TAB 12/16/17 Oxygen (Oxygen) 2 L Inha, 3 L INH 3 L continuously 01/08/10 Discontinued Reported Medications Benazepril Hcl (BENAZEPRIL HCL) 5 Mg Tablet 12/26/17 Past Medical/Surgical History Plan the patient has a past medical and surgical history of migraines, A. fib, ICD, pulmonary embolus, hypertension, COPD, CHF, GERD, cholecystectomy, intermittent prostatitis, rectal fracture, wears glasses, hearing aides, hard of hearing, skin cancer. (JOVITA CUEVAS DO) Reviewed Nurses Notes: Yes Old Medical Records Reviewed: Yes (JOVITA CUEVAS DO) Hx Smoking: Yes (40yrs ago) Smoking Status: Former Smoker Exposure to Second Hand Smoke?: No Hx Substance Use Disorder: No Hx Alcohol Use: No (JOVITA CUEVAS DO) Constitutional Vital Sign - Last 24 Hours 01/03/18 01/03/18 01/03/18 01/03/18 05:50 05:52 06:02 06:17 Temp 97.7 Pulse 73 99 Resp 24 B/P (MAP) 115/72 (86) 115/72 105/58 (74) Pulse Ox 95 98 O2 Delivery Room Air 01/03/18 01/03/18 01/03/18 01/03/18 06:38 06:47 06:52 07:07 Pulse 96 94 103 Resp 27 31 33 B/P (MAP) 118/69 (85) Pulse Ox 99 99 96 01/03/18 01/03/18 01/03/18 01/03/18 07:22 07:30 07:37 07:47 Pulse 81 112 Resp 23 32 B/P (MAP) 109/72 (84) 116/72 (87) Pulse Ox 94 93 O2 Delivery Nasal Cannula Nasal Cannula O2 Flow Rate 4 4 (JUDY NUNES MD) Physical Exam Vital signs stable General Appearance: The patient is alert, has no immediate need for airway protection and no current signs of toxicity., Pale, cool, dry skin: HEENT: Pupils equal and round no injection., Pale, sclera Respiratory: Chest is non tender, lungs are clear to auscultation. Decreased breath sounds throughout Cardiac: regular rate and rhythm, distant heart sounds Gastrointestinal: Abdomen is soft and non tender, no masses, bowel sounds normal. Musculoskeletal: Neck: Neck is supple and non tender. Extremities have full range of motion and are non tender. 1+ edema, chronic appearing bilaterally, grossly pale Skin: No rashes or lesions. DIFFERENTIAL DIAGNOSIS: After history and physical exam differential diagnosis was considered for lower GI bleeding including but not limited to diverticu losis, tumor, AVM, hemorrhoid and anal fissure. (JOVITA CUEVAS DO) Medical Decision Making Data Points Result Diagram: 01/03/18 0626 01/03/18 0746 Laboratory Hematology Test 01/03/18 06:20 01/03/18 06:26 01/03/18 07:46 Urine Color Marilin Urine Clarity Slightly-cloudy Urine pH 6.0 pH (4.8-9.5) Urine Specific [place] 1.024 Urine Protein Negative mg/dL (NEGATIVE) Urine Glucose (UA) Negative mg/dL (NEGATIVE) Urine Ketones Negative mg/dL (NEGATIVE) Urine Blood Negative (NEGATIVE) Urine Nitrite Negative (NEGATIVE) Urine Bilirubin Small (NEGATIVE) Urine Urobilinogen 4.0 mg/dL (0.2-1.9) Urine Leukocyte Esterase Moderate (NEGATIVE) Urine RBC 3 /HPF (0-2/HPF) Urine WBC 98 /HPF (0-5/HPF) Urine Squamous Epithelial Cells Few /LPF (</=FEW) Urine Transitional Epithelial Cells Few /LPF (NONE-FEW) Urine Bacteria Few /HPF (NONE-FEW) Urine Hyaline Casts Few /LPF (NONE-FEW) Urine Mucus Few /HPF (NONE-FEW) Red Blood Count 4.21 M/uL (4.00-5.60) Mean Corpuscular Volume 71.3 fL (80.0-96.0) Mean Corpuscular Hemoglobin 20.9 pg (26.0-33.0) Mean Corpuscular Hemoglobin Concent 29.3 g/dL (32.0-36.0) Red Cell Distribution Width 18.8 % (11.5-14.5) Mean Platelet Volume 8.6 fL (7.2-11.1) Neutrophils (%) (Auto) 72.8 % (39.4-72.5) Lymphocytes (%) (Auto) 11.9 % (17.6-49.6) Monocytes (%) (Auto) 14.8 % (4.1-12.4) Eosinophils (%) (Auto) 0.2 % (0.4-6.7) Basophils (%) (Auto) 0.3 % (0.3-1.4) Nucleated RBC Relative Count (auto) 0.0 /100WBC Neutrophils # (Auto) 10.7 K/uL (2.0-7.4) Lymphocytes # (Auto) 1.7 K/uL (1.3-3.6) Monocytes # (Auto) 2.2 K/uL (0.3-1.0) Eosinophils # (Auto) 0.0 K/uL (0.0-0.5) Basophils # (Auto) 0.0 K/uL (0.0-0.1) Nucleated RBC Absolute Count (auto) 0.00 K/uL Peripheral Blood Smear Yes Y/N B-Type Natriuretic Peptide 1900 pg/ml (0-100) Prothrombin Time 15.0 seconds (12.0-14.4) Prothromb Time International Ratio 1.17 Activated Partial Thromboplast Time 25 seconds (23-35) Sodium Level 141 mmol/L (137-145) Potassium Level 4.1 mmol/L (3.5-5.0) Chloride Level 97 mmol/L (98-107) Carbon Dioxide Level 34 mmol/L (22-30) Blood Urea Nitrogen 30 mg/dl (9-21) Creatinine 1.40 mg/dl (0.66-1.25) Glomerular Filtration Rate Calc 48.9 Random Glucose 110 mg/dl (75-110) Lactate 1.1 mmol/L (0.7-2.1) Calcium Level 8.4 mg/dl (8.4-10.2) Total Bilirubin 0.9 mg/dl (0.2-1.3) Aspartate Amino Transf (AST/SGOT) 10 U/L (0-35) Alanine Aminotransferase (ALT/SGPT) 26 U/L (0-56) Alkaline Phosphatase 107 U/L (0-126) Troponin I < 0.012 ng/ml Total Protein 7.2 g/dl (6.3-8.2) Albumin 3.1 g/dl (3.5-5.0) Amylase Level 58 U/L (0-110) Lipase 34 U/L (23-300) Chemistry Test 01/03/18 06:20 01/03/18 06:26 01/03/18 07:46 Urine Color Marilin Urine Clarity Slightly-cloudy Urine pH 6.0 pH (4.8-9.5) Urine Specific [place] 1.024 Urine Protein Negative mg/dL (NEGATIVE) Urine Glucose (UA) Negative mg/dL (NEGATIVE) Urine Ketones Negative mg/dL (NEGATIVE) Urine Blood Negative (NEGATIVE) Urine Nitrite Negative (NEGATIVE) Urine Bilirubin Small (NEGATIVE) Urine Urobilinogen 4.0 mg/dL (0.2-1.9) Urine Leukocyte Esterase Moderate (NEGATIVE) Urine RBC 3 /HPF (0-2/HPF) Urine WBC 98 /HPF (0-5/HPF) Urine Squamous Epithelial Cells Few /LPF (</=FEW) Urine Transitional Epithelial Cells Few /LPF (NONE-FEW) Urine Bacteria Few /HPF (NONE-FEW) Urine Hyaline Casts Few /LPF (NONE-FEW) Urine Mucus Few /HPF (NONE-FEW) White Blood Count 14.6 k/uL (4.5-11.0) Red Blood Count 4.21 M/uL (4.00-5.60) Hemoglobin 8.8 g/dL (14.0-18.0) Hematocrit 30.0 % (42.0-52.0) Mean Corpuscular Volume 71.3 fL (80.0-96.0) Mean Corpuscular Hemoglobin 20.9 pg (26.0-33.0) Mean Corpuscular Hemoglobin Concent 29.3 g/dL (32.0-36.0) Red Cell Distribution Width 18.8 % (11.5-14.5) Platelet Count 424 K/uL (150-450) Mean Platelet Volume 8.6 fL (7.2-11.1) Neutrophils (%) (Auto) 72.8 % (39.4-72.5) Lymphocytes (%) (Auto) 11.9 % (17.6-49.6) Monocytes (%) (Auto) 14.8 % (4.1-12.4) Eosinophils (%) (Auto) 0.2 % (0.4-6.7) Basophils (%) (Auto) 0.3 % (0.3-1.4) Nucleated RBC Relative Count (auto) 0.0 /100WBC Neutrophils # (Auto) 10.7 K/uL (2.0-7.4) Lymphocytes # (Auto) 1.7 K/uL (1.3-3.6) Monocytes # (Auto) 2.2 K/uL (0.3-1.0) Eosinophils # (Auto) 0.0 K/uL (0.0-0.5) Basophils # (Auto) 0.0 K/uL (0.0-0.1) Nucleated RBC Absolute Count (auto) 0.00 K/uL Peripheral Blood Smear Yes Y/N B-Type Natriuretic Peptide 1900 pg/ml (0-100) Prothrombin Time 15.0 seconds (12.0-14.4) Prothromb Time International Ratio 1.17 Activated Partial Thromboplast Time 25 seconds (23-35) Glomerular Filtration Rate Calc 48.9 Lactate 1.1 mmol/L (0.7-2.1) Calcium Level 8.4 mg/dl (8.4-10.2) Total Bilirubin 0.9 mg/dl (0.2-1.3) Aspartate Amino Transf (AST/SGOT) 10 U/L (0-35) Alanine Aminotransferase (ALT/SGPT) 26 U/L (0-56) Alkaline Phosphatase 107 U/L (0-126) Troponin I < 0.012 ng/ml Total Protein 7.2 g/dl (6.3-8.2) Albumin 3.1 g/dl (3.5-5.0) Amylase Level 58 U/L (0-110) Lipase 34 U/L (23-300) Coagulation Test 01/03/18 07:46 Prothrombin Time 15.0 seconds Prothromb Time International Ratio 1.17 Activated Partial Thromboplast Time 25 seconds Urinalysis Test 01/03/18 06:20 Urine Color Marilin Urine Clarity Slightly-cloudy Urine pH 6.0 pH (4.8-9.5) Urine Specific [place] 1.024 Urine Protein Negative mg/dL (NEGATIVE) Urine Glucose (UA) Negative mg/dL (NEGATIVE) Urine Ketones Negative mg/dL (NEGATIVE) Urine Blood Negative (NEGATIVE) Urine Nitrite Negative (NEGATIVE) Urine Bilirubin Small (NEGATIVE) Urine Urobilinogen 4.0 mg/dL (0.2-1.9) Urine Leukocyte Esterase Moderate (NEGATIVE) Urine RBC 3 /HPF (0-2/HPF) Urine WBC 98 /HPF (0-5/HPF) Urine Squamous Epithelial Cells Few /LPF (</=FEW) Urine Transitional Epithelial Cells Few /LPF (NONE-FEW) Urine Bacteria Few /HPF (NONE-FEW) Urine Hyaline Casts Few /LPF (NONE-FEW) Urine Mucus Few /HPF (NONE-FEW) (JUDY NUENS MD) EKG/Imaging EKG Interpretation 12 lead EK Rhythm: Atrial fibrillation rate 110 bpm with occasional PVC Mccracken: Left axis deviation QRS, incomplete right bundle branch block ST segments: , Comparison to previous EKG dated 12/26/17, no significant morphologic change. (JOVITA CUEVAS DO) Imaging FACILITY: [facility] PATIENT NAME: Shaggy Roland : 1940 MR: [id number] V: [id number] EXAM DATE: ORDERING PHYSICIAN: JOVITA CUEVAS TECHNOLOGIST: Location: [facility] [place] Patient: Shaggy Roland : 1940 Visit/Account:[id number] Date of Sevice: 01/03/2018 CHEST SINGLE AP portable at 0806 hours COMPARISON: 12/26/2017 PA and lateral chest HISTORY: dyspnea ,hx Pulm Htn FINDINGS: CARDIAC/VASC: Stable cardiomegaly. Vascular prominence is probably due to underinflation and portable technique. A left chest wall battery pack is present with an AICD lead tip in the projection of the RV apex. MEDIASTINUM: No visible mass or adenopathy. LUNGS/PLEURA: Underinflated lungs with moderate bibasilar atelectasis, very similar to the previous exam. The AICD battery partially obscures the left upper lobe. Bronchial wall thickening is noted bilaterally. No upper lobe airspace disease. No significant costophrenic angle blunting. BONES: No fracture or visible bony lesion. OTHER:Negative. IMPRESSION: 1. Underinflated lungs with moderate bibasilar atelectasis, stable from 12/26/2017. 2. Mild bronchial wall thickening is new. 3. Stable cardiomegaly. Report Dictated By: Vijay Bah at 01/03/2018 8:28 AM Report E-Signed By: Vijay Bah at 01/03/2018 8:40 AM WSN:[email or web address] (JUDY NUNES MD) ED Course/Re-evaluation Clinical Indication for ER IV: Hydration, IV Access Decision to Disposition Date: Jan 03, 2018 Decision to Disposition Time: 06:14 Turned Over The care of the patient was turned over to Dr Nunes. Dr. Cuevas I authorize my typed signature that I authenticated this report. (JAYLANJOVITASakshi Pan DO) Clinical Indication for ER IV: IV Access ED Course 01/03/2018 7:48:16 am accepted care patient at 7 AM essentially 77-year-old male with history of pulmonary embolism atrial fibrillation Eliquis with recent admission for heart failure and peripheral edema. Patient was discharged on December 30 followed up by primary care on January 01 and was reported to be doing well. However patient last evening at the skilled nursing had a large bright red bowel movement per rectum and then was transferred to the hospital. While in the hospital he had a 2nd large bloody bowel movement. Nursing staff had difficulty obtaining an IV but were able to obtain blood work. Procedure: Central line placement. After verbal informed consent from patient; with the risks explained to be bleeding, infection, he'll procedure; maximal sterile barrier technique was uses including cap, gown, sterile gloves, large sheet, hand washing and chlorhexidine prep. The area anesthetized with 1% lidocaine. The right femoral vein was punctured using ultrasound guidance with a 19 gauge finder needle, then a wire introducer was placed, at approximately 25 cm of wire insertion of the wire no longer with a dancer withdrawal. Multiple attempts were made to rectify the situation however the wire remain frozen. The entire guidewire and needle complex were removed there was an apparent 90 bend in the guidewire which likely was causing the inability to move the guidewire either forward or backward. Patient did sustain a small hematoma to the right inguinal area postprocedure. No further attempts at central access were made as nursing staff was able to place 2 peripheral IV catheters at this time. Plan at this time will be a transfusion of 2 units of packed red blood cells. Case was discussed with Dr. Ahn was on-call for general surgery. History physical exam in case was discussed. His current hemoglobin is 8.8 which is on the lower end of the patient's baseline however he is actively bleeding. And is on Eliquis. The decision was made that the patient should be transported to a higher level of care as be lack the appropriate resources to deal with the major GI bleed at this facility. 01/03/2018 7:59:15 am spoke with from [facility] with regard to this pat ient; history physical exam all pertinent lab data and ED course were reviewed. She has accepted patient for ER to ER transfer at this time. I will discuss the case with the on-call ER physician patient will be transported by air due to severity of current medical condition. Family and patient are aware and agree with transport at this time. Decision to Disposition Date: Jan 03, 2018 Decision to Disposition Time: 08:03 (JUDY NUNES MD) Depart Departure Latest Vital Signs Vital Signs Date Time Temp Pulse Resp B/P (MAP) Pulse Ox O2 Delivery O2 Flow Rate FiO2 01/03/18 07:47 116/72 (87) 01/03/18 07:37 112 32 93 Nasal Cannula 4 01/03/18 05:52 97.7 (JUDY NUNES MD) Impression: Primary Impression: Lower GI bleeding Additional Impressions: Atrial fibrillation Pulmonary hypertension, moderate to severe Condition: Improved Disposition: XFER TO ACUTE CARE HOSPITAL (to Dr Lopez at [facility]) Referrals: ALAINA VALENCIA MD (PCP) Problem Qualifiers Additional Impressions: Atrial fibrillation Atrial fibrillation type: chronic Qualified Codes: I48.2 - Chronic atrial fibrillation JOVITA CUEVAS DO Jan 03, 2018 06:07 JUDY NUNES MD Jan 03, 2018 07:55
--- NOTE | 2018-01-03 06:20 | EKG ---
FACILITY: [facility] PATIENT NAME: PANCHO CASON : [id number] MR: [id number] V: [id number] EXAM DATE: ORDERING PHYSICIAN: JOVITA TIAN TECHNOLOGIST: HC Test Reason : Blood Pressure : / mmHG Vent. Rate : 110 BPM Atrial Rate : 115 BPM P-R Int : 000 ms QRS Dur : 114 ms QT Int : 390 ms P-R-T Axes : 000 -78 083 degrees QTc Int : 527 ms Atrial fibrillation with rapid ventricular response Left axis deviation Incomplete right bundle branch block Cannot rule out Anterior infarct (cited on or before 03-JAN-2018) Abnormal ECG When compared with ECG of 26-DEC-2017 13:18, Relatively unchanged Confirmed by MARGRET SCHULTE ([id number]) on 01/03/2018 6:55:12 AM Referred By: JAYLAN Confirmed By:MARGRET SCHULTE
[2018-01-03 06:52] LABS: PLATELET COUNT, AUTOMATED 424 K/uL (150-450)
[2018-01-03] MEDS ORDERED: fentaNYL CITR 100 MCG/2 ML AMP IM ONE (07:30)
[2018-01-03] MEDS ORDERED: NS(*) 0.9% 250 ML BAG 250 ML ONE (07:58)
[2018-01-03 08:07] LABS: INR 1.17
[2018-01-03 08:38] VITALS: BP 103/64
--- NOTE | 2018-01-03 08:43 | RADIOLOGY IMAGING REPORT ---
FACILITY: [facility] - [place] PATIENT NAME: Shaggy Roland : 1940 MR: [id number] V: [id number] EXAM DATE: ORDERING PHYSICIAN: JOVITA TIAN TECHNOLOGIST: [facility] Patient: Shaggy Roland : 1940 Visit/Account:[id number] Date of Sevice: 01/03/2018 CHEST SINGLE AP portable at 0806 hours COMPARISON: 12/26/2017 PA and lateral chest HISTORY: dyspnea ,hx Pulm Htn FINDINGS: CARDIAC/VASC: Stable cardiomegaly. Vascular prominence is probably due to underinflation and port able technique. A left chest wall battery pack is present with an AICD lead tip in the projection of the RV apex. MEDIASTINUM: No visible mass or adenopathy. LUNGS/PLEURA: Underinflated lungs with moderate bibasilar atelectasis, very similar to the previous exam. The AICD battery partially obscures the left upper lobe. Bronchial wall thickening is noted b ilaterally. No upper lobe airspace disease. No significant costophrenic angle blunting. BONES: No fracture or visible bony lesion. OTHER:Negative. IMPRESSION: 1. Underinflated lungs with moderate bibasilar atelectasis, stable from 12/26/2017. 2. Mild bronchial wall thickening is new. 3. Stable cardiomegaly. Report Dictated By: Vijay Bah at 01/03/2018 8:28 AM Report E-Signed By: Vijay Bah at 01/03/2018 8:40 AM WSN:[email or web address]
== END 2018-01-03 08:54 | disposition short-term general hospital (02) ==
LOC: ER 05:51
DX: K92.2 Gastrointestinal hemorrhage, unspecified (principal); I48.2 Chronic atrial fibrillation; I10 Essential (primary) hypertension
CPT/HCPCS: 36415; 36556; 71045; 81001; 82150; 83605; 83690; 83880; 84484; 85025; 85610; 85730; 86850; 86900; 86901; 86920; 93005; 99285; J7030; J7050; P9016; 82040; 82247; 82310; 82374; 82435; 82565; 82947; 84075; 84132; 84155; 84295; 84450; 84460; 84520

== ENCOUNTER → 2018-01-03 | Outpatient (CLI) | payer MEDICARE, OTHER ==
[2017-12-27 14:28] VITALS: BMI 36.3
[~2018-01-03] MED LIST changes: +FURO80TA70 PO; +NYST15PO4 TP; +POTA20PA25 PO
== END ==
LOC: AMB 08:22
PROVIDERS: ATTEND Nurse Practitioner
DX: K92.2 Gastrointestinal hemorrhage, unspecified (principal)

== ENCOUNTER → 2018-01-03 | Outpatient (CLI) | payer MEDICARE, OTHER ==
[2017-12-27 14:28] VITALS: BMI 36.3
== END ==
LOC: AMB 05:23
PROVIDERS: ATTEND Nurse Practitioner
DX: K92.1 Melena (principal); R53.1 Weakness
CPT/HCPCS: A0425; A0429

== ENCOUNTER 2018-01-17 09:03 | Outpatient (RCR) | payer MEDICARE, OTHER ==
[2017-12-27 14:28] VITALS: BMI 36.3
[~2018-01-17 09:03] MED LIST changes: +FURO80TA70 PO; +NYST15PO4 TP; +POTA20PA25 PO
--- NOTE | 2018-01-17 10:24 | PT INITIAL EVALUATION ---
MEDICAL DIAGNOSIS: Bilateral Leg Edema TREATMENT DIAGNOSIS: Bilateral Leg Edema, Secondary Lymphedema DATE OF ONSET: 01/17/18 SUBJECTIVE: Shaggy is a 77 year old male presenting to physical therapy following gradual onset over the last several months of swelling in B LE. Pt has a history of CHF and has noticed that his legs have been getting bigger and heavier. 2 Weeks prior pt and his noted that he was unable to put pants on secondary to increased volume. Pt was recently hospitalized with CHF complications as well as a GI bleed and when discharged was placed on a higher dose of Lasix at 80mg for management of edema. Pt started taking this dose 3 days ago and has not noticed much change in urinary frequency or edema. Pt reports no history of kidney problems or wounds at this time. Pt reports no pain associated with the swelling. REHAB PROBLEM LIST: Decreased ROM Impaired Bed Mobility Decreased Strength Impaired Transfers Decreased Function Decreased ADL's Decreased Mobility PREVIOUS MEDICAL HISTORY: See EMR OCCUPATION: Retired OBJECTIVE: Pt presents with B symmetrical swelling of B LE. Pt is obese. ROM: Knee and ankle ROM impaired secondary to edema. Strength: Pt unable to perform SLR secondary to weight of limb and weakness. Palpation: B 2+ pitting is present on tibia. Stemmer's sign (-) on B dorsum, (+) on 1st digit B. Special Tests: Lymphedema Life Impact Scale (LLIS): to be tested first treatment session. Other Objective Findings: Circumferential Measures of LE in cm (R,L): 1st digit: 10.3, 9.7, 2nd digit: 6.4, 6.5, Dorsum:27.6, 27, arch: 27.6, 27.8, Heel: 38.5, 37.2, figure-8: 65.8, 64.8, above malleoli: 30.6, 31, Calf: 46, 43.1, Below Knee: 42, 41.2, Above Knee: 49.6, 50.4. ASSESSMENT: Shaggy presents with signs and symptoms consistent with B LE edema with secondary lymphatic changes due to CHF. Physical therapy is indicated to perform gradual progressive CDT treatment to address the above listed deficits to improve pt function with ADL's. Precautions to treatment include unstable CHF. MD contacted concerning treatment progression and initiation following prolonged use of current diuretics medication. Short Term Goals In 2 weeks pt will be independent with compression garment use for maintenance of edema as well as perform HEP for increased function with ADL's. In 4 weeks pt will reduce calf circumference volume to <42cm B for improved function with ADL's. In 4 weeks pt will reduce his LLIS score by 8 points for compared to start date score for improved function with ADL's. Patient's Goals Decrease edema in legs. PLAN: Patient to be seen for Manual Therapy/STM/MET Strengthening/condition Range of Motion Stretching Closed Chain Program Gait Trg/Balance Trg Home Exercise Program [facility]./Manual Traction Therapeutic Activities 5x/Week for 4 Weeks If you have any questions, comments, or concerns about this report or plan, please contact me at . Thank you, Kari Hutchins, PT, DPT, CLT MTDD
[2018-01-25] MEDS ORDERED: APIX5TAB PO (09:01)
--- NOTE | 2018-02-27 15:20 | PT PLAN OF CARE ---
Physician: Chanel Hooks MD Patient is being seen: 3-5x/Week Therapist: Kari Hutchins, PT, DPT, CLT Medical Diagnosis: Bilateral Leg Edema Treatment Diagnosis: Bilateral Leg Edema, Secondary Lymphedema Date of Onset: 01/17/18 Date of Initial Evaluation: 01/17/18 Date patient was last seen: 01/17/18 Number of treatments: 1 Number of cancellations/No shows: 0 INTERVENTIONS: Manual Therapy/STM/MET Strengthening/condition Range of Motion Stretching Closed Chain Program Gait Trg/Balance Trg Home Exercise Program Mech./Manual Traction Therapeutic Activities GOALS: In 2 weeks pt will be independent with compression garment use for maintenance of edema as well as perform HEP for increased function with ADL's. In 4 weeks pt will reduce calf circumference volume to <42cm B for improved function with ADL's. In 4 weeks pt will reduce his LLIS score by 8 points for compared to start date score for improved function with ADL's. PATIENT'S GOAL: Decrease edema in legs. Status of Patient's Goals:Unmet Patient Compliance: Poor Prognosis: Fair Reasons for discharge from therapy: Shaggy is to discharge from physical therapy secondary to poor compliance with appointment scheduling following his initial evaluation. No progress was made towards patient treatment goals at this time other than patient education on management of edema. Pt is to seek PT at a later time if he is more available to schedule treatment sessions. OBJECTIVE: Pt presents with B symmetrical swelling of B LE. Pt is obese. ROM: Knee and ankle ROM impaired secondary to edema. Strength: Pt unable to perform SLR secondary to weight of limb and weakness. Palpation: B 2+ pitting is present on tibia. Stemmer's sign (-) on B dorsum, (+) on 1st digit B. Special Tests: Lymphedema Life Impact Scale (LLIS): to be tested first treatment session. Other Objective Findings: Circumferential Measures of LE in cm (R,L): 1st digit: 10.3, 9.7, 2nd digit: 6.4, 6.5, Dorsum:27.6, 27, arch: 27.6, 27.8, Heel: 38.5, 37.2, figure-8: 65.8, 64.8, above malleoli: 30.6, 31, Calf: 46, 43.1, Below Knee: 42, 41.2, Above Knee: 49.6, 50.4. If you have any questions, comments, or concerns about this report or plan, please contact me at . Thank you, Kari Hutchins, PT, DPT, CLT MTDD
== END 2018-01-17 18:00 | disposition home or self-care (01) ==
LOC: PT 09:03
PROVIDERS: ATTEND Family Medicine
DX: R60.0 Localized edema (principal); I89.0 Lymphedema, not elsewhere classified
CPT/HCPCS: 97162

== ENCOUNTER → 2018-02-09 | Outpatient (CLI) | payer MEDICARE, OTHER ==
[2017-12-27 14:28] VITALS: BMI 36.3
[2018-02-09 10:29] LABS: PLATELET COUNT, AUTOMATED 421 K/uL (150-450)
== END ==
LOC: LAB 09:49
PROVIDERS: ATTEND Family Medicine
DX: I27.20 Pulmonary hypertension, unspecified (principal); Z87.19 Personal history of other diseases of the digestive system; I48.2 Chronic atrial fibrillation
CPT/HCPCS: 36415; 82310; 82374; 82435; 82565; 82947; 84132; 84295; 84520; 85025

== ENCOUNTER → 2018-03-03 | Outpatient (CLI) | payer MEDICARE, OTHER ==
[2017-12-27 14:28] VITALS: BMI 36.3
== END ==
LOC: NUC 00:15
PROVIDERS: ATTEND Internal Medicine
DX: Z02.9 Encounter for administrative examinations, unspecified (principal)

== ENCOUNTER → 2018-03-13 | Outpatient (CLI) | payer MEDICARE, OTHER ==
[2017-12-27 14:28] VITALS: BMI 36.3
[2018-03-13 13:50] LABS: PLATELET COUNT, AUTOMATED 512 K/uL (150-450)
== END ==
LOC: LAB 12:50
PROVIDERS: ATTEND Family Medicine
DX: R60.9 Edema, unspecified (principal)
CPT/HCPCS: 36415; 82040; 82247; 82310; 82374; 82435; 82565; 82947; 84075; 84132; 84155; 84295; 84450; 84460; 84520; 85025

== ENCOUNTER → 2018-03-24 | Outpatient (CLI) | payer MEDICARE, OTHER ==
[2017-12-27 14:28] VITALS: BMI 36.3
[2018-03-24 13:58] LABS: PLATELET COUNT, AUTOMATED 414 K/uL (150-450)
== END ==
LOC: LAB 13:30
PROVIDERS: ATTEND Family Medicine
DX: D64.9 Anemia, unspecified (principal)
CPT/HCPCS: 36415; 85025

== ENCOUNTER 2018-03-27 09:45 | Outpatient (RCR) | payer MEDICARE, OTHER ==
[2017-12-27 14:28] VITALS: BMI 36.3
--- NOTE | 2018-03-16 07:16 | PT INITIAL EVALUATION ---
MEDICAL DIAGNOSIS: Edema TREATMENT DIAGNOSIS: Cardiac Edema, Bilateral LE Lymphedema DATE OF ONSET: 01/17/18 SUBJECTIVE: Shaggy is a 77 year old male presenting to physical therapy following gradual onset over the last several months of swelling in B LE. Pt has a history of CHF and has noticed that his legs have been getting bigger and heavier. 2 Weeks prior pt and his noted that he was unable to put pants on secondary to increased volume. Pt was recently hospitalized with CHF complications as well as a GI bleed and when discharged was placed on a higher dose of Lasix at 80mg for management of edema. Since Lasix has again been adjusted to a lower dose. Pt reports no history of kidney problems or wounds at this time. Pt reports no pain associated with the swelling other than skin tightness. REHAB PROBLEM LIST: Decreased ROM Impaired Bed Mobility Decreased Strength Impaired Transfers Decreased Function Decreased ADL's Decreased Mobility PREVIOUS MEDICAL HISTORY: See EMR OCCUPATION: Retired OBJECTIVE: Pt presents with B symmetrical swelling of B LE, skin changes are noted around the malleoli as well as at the base of the toes with hyperkeratosis. Pt is obese. ROM: Knee and ankle ROM impaired secondary to edema. Strength: Pt unable to perform SLR secondary to weight of limb and weakness. Palpation: B 2+ pitting is present on tibia. Stemmer's sign (+) on B dorsum, (+) on 1st digit B. Special Tests: Lymphedema Life Impact Scale (LLIS): 50/72 Other Objective Findings: Circumferential Measures of LE in cm (R,L): 1st digit: 9.8, 9.7, 2nd digit: 6.6, 7.3, Dorsum: 28.3, 27.3, arch: 30, 90.8, Heel: 39.5, 40.5, figure-8: 68, 68.5, above malleoli: 32.1, 33.1, Calf: 46.9, 44.9, Below Knee: 43.1, 43.2, Above Knee: 50.2, 50. ASSESSMENT: Shaggy presents with signs and symptoms consistent with B LE edema with secondary lymphatic changes due to CHF. Physical therapy is indicated to perform gradual progressive CDT treatment to address the above listed deficits to improve pt function with ADL's. Precautions to treatment include CHF. Short Term Goals In 4 weeks pt will be independent with compression garment use for maintenance of edema as well as perform HEP for increased function with ADL's. In 4 weeks pt will reduce calf circumference volume to <42cm B for improved function with ADL's. In 4 weeks pt will reduce his LLIS score to 40 points for compared to start date score for improved function with ADL's. Patient's Goals Decrease edema in legs. PLAN: Patient to be seen for Manual Therapy/STM/MET Strengthening/condition Range of Motion Stretching Closed Chain Program Gait Trg/Balance Trg Home Exercise Program [facility]./Manual Traction Therapeutic Activities 5x/Week for 4 Weeks If you have any questions, comments, or concerns about this report or plan, please contact me at . Thank you, Kari Hutchins, PT, DPT, CLT MTDD
[2018-03-28] MEDS ORDERED: AMIO200T49 PO (19:57)
[2018-03-28] MEDS ORDERED: APIX5TAB PO (19:57)
[2018-03-28] MEDS ORDERED: POTA20TA94 PO (19:57)
--- NOTE | 2018-03-29 09:42 | PT PLAN OF CARE ---
Physician: Chanel Hooks MD Patient is being seen: 5x/Week Therapist: Kari Hutchins, PT, DPT, CLT Medical Diagnosis: Edema Treatment Diagnosis: Cardiac Edema, Bilateral LE Lymphedema Date of Onset: Date of Initial Evaluation: 03/15/18 Date patient was last seen: 03/28/18 Number of treatments: 7 Number of cancellations/No shows: 1 INTERVENTIONS: Manual Therapy/STM/MET Strengthening/condition Range of Motion Stretching Closed Chain Program Gait Trg/Balance Trg Home Exercise Program Mech./Manual Traction Therapeutic Activities GOALS: Copy from previous eval PATIENT'S GOAL: In 4 weeks pt will be independent with compression garment use for maintenance of edema as well as perform HEP for increased function with ADL's. In 4 weeks pt will reduce calf circumference volume to <42cm B for improved function with ADL's. In 4 weeks pt will reduce his LLIS score to 40 points for compared to start date score for improved function with ADL's. Patient's Goals: Decrease edema in legs. Patient Compliance: Fair Prognosis: ROM: Knee and ankle ROM impaired secondary to edema. Strength: Pt unable to perform SLR secondary to weight of limb and weakness. Palpation: B 2+ pitting is present on tibia. Stemmer's sign (+) on B dorsum, (+) on 1st digit B. Special Tests: Lymphedema Life Impact Scale (LLIS): 50/72 Other Objective Findings: Circumferential Measures of LE in cm (R,L): 1st digit: 9.8, 9.7, 2nd digit: 6.6, 7.3, Dorsum: 28.3, 27.3, arch: 30, 90.8, Heel: 39.5, 40.5, figure-8: 68, 68.5, above malleoli: 32.1, 33.1, Calf: 46.9, 44.9, Below Knee: 43.1, 43.2, Above Knee: 50.2, 50. Reasons for discharge from therapy: Shaggy is to discharge from physical therapy at this time secondary to recent hospitalization with GI dysfunction. Last visit pt was encouraged to seek medical help with present nausea lasting the duration of treatment. At the time of discharge pt showed good reductions in the L foot but had significant gains still to be made in the L LE edema. Pt is to seek further treatment upon inpatient discharge for continuation of care. If you have any questions, comments, or concerns about this report or plan, please contact me at . Thank you, Kari Hutchins, PT, DPT, CLT SHIVAD
== END 2018-03-27 18:00 | disposition home or self-care (01) ==
LOC: PT 09:45
PROVIDERS: ATTEND Family Medicine
DX: J81.0 Acute pulmonary edema (principal); I89.0 Lymphedema, not elsewhere classified; Z86.79 Personal history of other diseases of the circulatory system
CPT/HCPCS: 97162

== ENCOUNTER 2018-03-28 17:02 | Inpatient (IN) | payer MEDICARE, OTHER ==
[~2018-03-28] VITALS: Ht 152.4 cm; Wt 124.8 kg
[~2018-03-28 17:02] MED LIST changes: -ACETAMINOPHEN 325 MG TAB PO ONE; -LIDOCAINE/SOD BICARB 8.4% SYR ID PRN; -NS(*) 0.9% 500 ML BAG 500 ML IV PRN; -POTA20TA94 PO; -diphenhydrAMINE 25 MG CAP PO ONE
--- NOTE | 2018-03-28 17:13 | ER Report ---
History and Physical Time Seen By MD: 17:13 HPI/ROS CHIEF COMPLAINT: Lightheaded, bloody stool 1 HISTORY OF PRESENT ILLNESS: 77-year-old male patient presents to the emergency room with complaint of lightheadedness and bloody stool 1. Patient states that he had a bloody stool earlier today. He did call and go see his primary care provider. He was evaluated there, a CBC, CMP were done. He is found to be anemic at 6.9. They did order a unit of blood. He received that and the special procedures unit and states he is not feeling better. At that time he was referred to the emergency room for further evaluation. Patient states he feels distended in his abdomen. He denies having any fevers or chills. He states he is not had any nausea or vomiting. Patient states he is not taking any medication for this. Patient states he has had colonoscopies last year as well as the year before. Last year the surgeon found 3 blood vessels or bleeding and they were cauterized. Prior to that he was just found to have blood in his colon. There is no source of bleeding found. REVIEW OF SYSTEMS: Respiratory: No cough, no dyspnea. Cardiovascular: No chest pain, no palpitations. Gastrointestinal: As noted above Musculoskeletal: No back pain. Allergies: Coded Allergies: peanut (Verified Adverse Reaction, Unknown, Prostate Swells, 03/28/18) Home Meds Active Scripts Pantoprazole Sodium (PANTOPRAZOLE SODIUM) 20 Mg Tablet.dr, 20 MG PO QDAY for 90 Days, #90 TAB.SR Prov:ALAINA VALENCIA MD 01/02/18 Polysaccharide Iron Complex (POLY-IRON) 150 Mg Cap, 150 MG PO daily , #90 CAP 4 Refills Prov:ALAINA VALENCIA MD 08/08/17 Carvedilol (CARVEDILOL) 25 Mg Tablet, 1 TAB PO BID for 90 Days, #180 TAB 4 Refills Prov:ALAINA VALENCIA MD 05/09/17 Reported Medications Potassium Chloride (POTASSIUM CHLORIDE) 20 Meq Tab.er.prt, 1 TAB PO QDAY 03/28/18 Amiodarone Hcl (AMIODARONE HCL) 200 Mg Tablet, 1 TAB PO QDAY TAKE 1 TAB PO BID FOR 4 WEEKS, THEN 1 TAB PO QD THEREAFTER 03/28/18 Apixaban (ELIQUIS) 5 Mg Tablet, 1 TAB PO BID 03/28/18 Furosemide (FUROSEMIDE) 80 Mg Tablet, 1 TAB PO QAM, TAB 01/16/18 Oxygen (Oxygen) 2 L Inha, 3 L INH 3 L continuously 01/08/10 Discontinued Reported Medications Nystatin 100,000 Unit/Gm Top Powder (NYSTATIN 100,000 UNIT/GM TOP POWDER) 15 Gm Powder, 1 KRISHAN TP BID, TUBE Apply to chest and perineum bid 01/16/18 Discontinued Scripts Ipratropium/Albuterol Sulfate (IPRAT-ALBUT 0.5-3(2.5) MG/3 ML) 3 Ml Ampul.neb, 1 VIAL IH TID for 30 Days, #90 INH 4 Refills Prov:ALAINA VALENCIA MD 11/09/17 Apixaban (ELIQUIS) 5 Mg Tablet, 1 TAB PO BID for 30 Days, #60 TAB 4 Refills Prov:ALAINA VALENCIA MD 01/25/18 Past Medical/Surgical History Patient has a past medical history of migraines, chronic A. fib, pulmonary emboli, hypertension, COPD, great toe fracture, fragile skin, skin cancer on face, patient is currently on Eliquis for chronic A. fib. Patient has a surgical history of hernia repair, splenectomy, cholecystectomy, multiple endoscopies. Reviewed Nurses Notes: Yes Hx Smoking: Yes (40yrs ago) Smoking Status: Former Smoker Exposure to Second Hand Smoke?: No Hx Substance Use Disorder: No Hx Alcohol Use: No Constitutional Vital Sign - Last 24 Hours 03/28/18 03/28/18 03/28/18 03/28/18 17:13 17:15 17:27 17:30 Temp 97.7 Pulse 81 Resp 20 B/P (MAP) 97/59 97/59 (72) 105/64 (78) 105/66 (79) Pulse Ox 88 O2 Delivery Nasal Cannula 03/28/18 03/28/18 03/28/18 03/28/18 17:32 17:37 18:22 18:30 Pulse 80 92 98 B/P (MAP) 109/60 (76) Pulse Ox 94 95 93 03/28/18 03/28/18 03/28/18 18:37 18:52 19:00 Pulse 77 88 B/P (MAP) 99/66 (77) Pulse Ox 97 88 Physical Exam General Appearance: The patient is alert, has no immediate need for airway protection and no current signs of toxicity. Respiratory: Chest is non tender, lungs are clear to auscultation. Cardiac: regular rate and rhythm Gastrointestinal: Abdomen is distended and non tender, no masses, bowel sounds normal. Musculoskeletal: Neck: Neck is supple and non tender. Extremities have full range of motion and are non tender. Skin: No rashes or lesions. DIFFERENTIAL DIAGNOSIS: After history and physical exam differential diagnosis was considered for GI bleed, diverticulitis, pneumonia. Medical Decision Making Data Points Laboratory Hematology Test 03/28/18 18:38 Stool Occult Blood (IFOB) Positive (NEGATIVE) Chemistry Test 03/28/18 18:38 Stool Occult Blood (IFOB) Positive (NEGATIVE) EKG/Imaging Imaging EXAMINATION: Abdomen and pelvis CT with contrast HISTORY: Abdominal pain. TECHNIQUE: CT was performed through the abdomen and pelvis following injection of iodinated intravenous contrast. Sagittal and coronal MPR reformatted images were generated. 75 mL isovue 370 injected. One of the following dose optimization techniques was utilized in the performance of this exam: automated exposure control; adjustment of the mA and/or kV according to patient size; or use of iterative reconstruction technique. Specific details can be referenced in the facility's radiology CT exam operational policy. COMPARISON: August 22, 2013 FINDINGS: Lower chest: Trace left and trace to small right pleural effusions are new compared to prior CT. Unchanged enlarged heart. Left greater than right lower lobe basilar consolidation is new compared to prior favored to represent atelectasis. Spleen: Absent spleen with unchanged left upper abdomen splenule. Adrenal glands: Normal. Pancreas: Normal. Kidneys: A few small right renal cysts. Gallbladder: Surgically absent. Liver: Hepatic dome calcified granulomas. A few hepatic cysts as before. Vessels: Normal for age. Lymph node assessment: Normal. Bowel including small bowel, colon and appendix: Normal stomach, normal small bowel. Appendix not visualized. Descending and sigmoid colonic diverticulosis. Stool and gas containing abnormal focally dilated sigmoid colon has significantly increased in size now measuring 10 x 12 cm, axial image 1 13 x 10.7 cm craniocaudad. This could alternatively represent a chronic extraluminal fluid collection related to a fistulous connection with the colon. Wall thickening surrounding this finding is new, axial image 113.Lipoma measuring 2.2 cm within the lumen of this finding is unchanged. There is scarring and fat necrosis seen just inferior to this finding which is tethered to the upper aspect of the bladder which is unchanged, coronal image 53. Peritoneum / retroperitoneum / mesentery: See comments above. Pelvic structures: Unchanged enlarged prostate gland. Chronic scarring and fat necrosis above the bladder which is confluent with the abnormal sigmoid colon region is unchanged. Normal rectum. Mild new presacral fat stranding. No enlarged lymph nodes. Body wall: Normal. Musculoskeletal: No acute finding. T11 vertebral body hemangioma noted. IMPRESSION: Abnormal 10 x 12 x 10.7 cm stool and gas containing outpouching emanates off the sigmoid colon and has increased in size. New wall thickening in this area. Is most concerning for an exophytic sigmoid colonic malignancy until proven otherwise. 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 Contrast enema or colonoscopy may be warranted for further evaluation. Scarring and fat necrosis just inferior to this finding appears to be tethered with the upper aspect of the bladder similar to prior. Results were called to PINEDA GARCIA on 03/28/2018 7:01 PM. Report Dictated By: Getachew Godfrey MD at 03/28/2018 6:38 PM Report E-Signed By: Getachew Godfrey MD at 03/28/2018 7:01 PM CHEST PA LAT INDICATION: Nausea, weakness COMPARISON: 01/13/2018 FINDINGS: Frontal and lateral views obtained. The cardiac silhouette is mild to moderately enlarged as before. Unchanged implanted defibrillator/pacemaker. No pneumothorax. Unchanged left basilar opacification. No definitive pleural fluid seen on lateral view. Mild bilateral right greater than left groundglass opacification appears increased on the right. No acute osseous abnormality. IMPRESSION: 1. Mild pulmonary edema has increased. 2. Unchanged left basilar opacification seen on frontal view which may represent small volume left basilar pleural fluid which is not well visualized on lateral view. This could alternatively represent atelectasis or conceivably a pneumonia. Report Dictated By: Getachew Godfrey MD at 03/28/2018 6:36 PM Report E-Signed By: Getachew Godfrey MD at 03/28/2018 6:38 PM ED Course/Re-evaluation ED Course Patient was admitted to an exam room, history and physical were obtained. Differential diagnoses were considered. On examination lungs are clear, heart is regular, abdomen is distended and nontender. With patient already having a CBC and a CMP that was done by obtained an occult stool which was positive. I did want to get a urinalysis, however the patient was able to urinate for us. A chest x-ray was done which showed a persistent consolidation, they're concerned about possible infiltrate in the right lower lobe, however their own concerned if that fits with the clinical picture. A CT scan of the abdomen and pelvis was done which showed a 10 x 10.7 x 12 extension of the sigmoid colon which showed thickened wall. They state that has grown in size. As a result I did call and speak with Dr. Covington, general surgeon, he felt that the patient should have a colonoscopy, recommended that we admit the patient to the hospitalist service as he does have several health concerns and is currently on Eliquis for A. fib. His plan was to admit to hospitalist, stabilize him and give blood if needed. Then he would do bowel prep tomorrow and perform colonoscopy on . I discussed the case with Dr. Mantilla, hospitalist, who agreed to accept the patient for admission. I discussed this with the patient and his and they verbalized understanding and agreement with plan. Decision to Disposition Date: Mar 28, 2018 Decision to Disposition Time: 19:55 Depart Departure Latest Vital Signs Vital Signs Date Time Temp Pulse Resp B/P (MAP) Pulse Ox O2 Delivery O2 Flow Rate FiO2 03/28/18 19:00 99/66 (77) 03/28/18 18:52 88 88 03/28/18 17:13 97.7 20 Nasal Cannula Impression: Primary Impression: Lower GI bleeding Condition: Condition Unchanged Disposition: Admitted from ER Referrals: ALAINA VALENCIA MD (PCP) PINEDA GARCIA Mar 28, 2018 17:13
[2018-03-28] MEDS ORDERED: IOPAMIDOL 76% 50 ML INFUS BTL 100 ML ONE (17:46)
--- NOTE | 2018-03-28 18:43 | RADIOLOGY IMAGING REPORT ---
FACILITY: [facility] [place] PATIENT NAME: Shaggy Roland : 1940 MR: [id number] V: [id number] EXAM DATE: ORDERING PHYSICIAN: PINEDA GACRIA TECHNOLOGIST: Location: [facility] [place] Patient: Shaggy Roland : 1940 Visit/Account:[id number] Date of Sevice: 03/28/2018 CHEST PA LAT INDICATION: Nausea, weakness COMPARISON: 01/13/2018 FINDINGS: Frontal and lateral views obtained. The cardiac silhouette is mild to moderately enlarged as before. Unchanged implanted defibrillator/pacemaker. No pneumothorax. Unchanged left basilar opac ification. No definitive pleural fluid seen on lateral view. Mild bilateral right greater than left g roundglass opacification appears increased on the right. No acute osseous abnormality. IMPRESSION: 1. Mild pulmonary edema has increased. 2. Unchanged left basilar opacification seen on frontal view which may represent small volume left ba silar pleural fluid which is not well visualized on lateral view. This could alternatively represent atelectasis or conceivably a pneumonia. Report Dictated By: Getachew Godfrey MD at 03/28/2018 6:36 PM Report E-Signed By: Getachew Godfrey MD at 03/28/2018 6:38 PM WSN:[id number]
--- NOTE | 2018-03-28 19:05 | RADIOLOGY IMAGING REPORT ---
FACILITY: [facility] [place] PATIENT NAME: Shaggy Roland : 1940 MR: [id number] V: [id number] EXAM DATE: ORDERING PHYSICIAN: PINEDA GARCIA TECHNOLOGIST: Location: [facility] [place] Patient: Shaggy Roland : 1940 Visit/Account:[id number] Date of Sevice: 03/28/2018 EXAMINATION: Abdomen and pelvis CT with contrast HISTORY: Abdominal pain. TECHNIQUE: CT was performed through the abdomen and pelvis following injection of iodinated intrave nous contrast. Sagittal and coronal MPR reformatted images were generated. 75 mL isovue 370 injected . One of the following dose optimization techniques was utilized in the performance of this exam: autom ated exposure control; adjustment of the mA and/or kV according to patient size; or use of iterative reconstruction technique. Specific details can be referenced in the facility's radiology CT exam ope rational policy. COMPARISON: August 22, 2013 FINDINGS: Lower chest: Trace left and trace to small right pleural effusions are new compared to prior CT. Unch anged enlarged heart. Left greater than right lower lobe basilar consolidation is new compared to megan or favored to represent atelectasis. Spleen: Absent spleen with unchanged left upper abdomen splenule. Adrenal glands: Normal. Pancreas: Normal. Kidneys: A few small right renal cysts. Gallbladder: Surgically absent. Liver: Hepatic dome calcified granulomas. A few hepatic cysts as before. Vessels: Normal for age. Lymph node assessment: Normal. Bowel including small bowel, colon and appendix: Normal stomach, normal small bowel. Appendix not vis ualized. Descending and sigmoid colonic diverticulosis. Stool and gas containing abnormal focally dilated sigmoid colon has significantly increased in size n ow measuring 10 x 12 cm, axial image 1 13 x 10.7 cm craniocaudad. This could alternatively represent a chronic extraluminal fluid collection related to a fistulous connection with the colon. Wall thicke herlinda surrounding this finding is new, axial image 113.Lipoma measuring 2.2 cm within the lumen of thi s finding is unchanged. There is scarring and fat necrosis seen just inferior to this finding which is tethered to the upper aspect of the bladder which is unchanged, coronal image 53. Peritoneum / retroperitoneum / mesentery: See comments above. Pelvic structures: Unchanged enlarged prostate gland. Chronic scarring and fat necrosis above the bladder which is confluent with the abnormal sigmoid colon region is unchanged. Normal rectum. Mild new presacral fat stranding. No enlarged lymph nodes. Body wall: Normal. Musculoskeletal: No acute finding. T11 vertebral body hemangioma noted. IMPRESSION: Abnormal 10 x 12 x 10.7 cm stool and gas containing outpouching emanates off the sigmoid colon and pham s increased in size. New wall thickening in this area. Is most concerning for an exophytic sigmoid co lonic malignancy until proven otherwise. 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 Contrast enema or colonoscopy may be warranted for further evaluation. Scarring and fat necrosis just inferior to this finding appears to be tethered with the upper aspect of the bladder similar to prior. Results were called to PINEDA GARCIA on 03/28/2018 7:01 PM. Report Dictated By: Getachew Godfrey MD at 03/28/2018 6:38 PM Report E-Signed By: Getachew Godfrey MD at 03/28/2018 7:01 PM WSN:[id number]
[2018-03-28] MEDS ORDERED: APIX5TAB PO (19:57)
[2018-03-28] MEDS ORDERED: AMIO200T49 PO (19:57)
[2018-03-28] MEDS ORDERED: POTA20TA94 PO (19:57)
[2018-03-28 21:18] VITALS: BP 121/67
[2018-03-28] MEDS ORDERED: NS(*) 0.9% 1000 ML BAG 1,000 ML IV PRN (21:36)
[2018-03-28] MEDS ORDERED: INFLUENZA VIRUS VAC 0.5ML SYR IM ONLY ONE (21:40)
[2018-03-28] MEDS ORDERED: FLUSH 10 ML SYR IVP PRN (21:40)
--- NOTE | 2018-03-28 22:33 | History & Physical ---
History of Present Illness Chief Complaint Fatigue History of Present Illness 77M presented after BRBPR. Chronic anemia and GI bleeding, was seen by PCP who was monitoring anemia and reported worsening. Hgb 6.9 stable form 7.0 3 days ago and 7.7 2 weeks ago. Recently taken off Eliquis by PCP. Was transfused one unit PRBC in infusion center without improvement in symptoms. In ER further evaluation with CT abdomen noted large 12 CM lesion near sigmoid colon, possible fistulous connection. Dr Covington consulted who would like patient admitted for hydration, monitoring and bowel prep for colonoscopy . History Problems: (1) COPD (chronic obstructive pulmonary disease) Status: Chronic (2) GERD (gastroesophageal reflux disease) Status: Chronic (3) GIB (gastrointestinal bleeding) Status: Chronic (4) Afib Status: Chronic Home Meds Active Scripts Pantoprazole Sodium (PANTOPRAZOLE SODIUM) 20 Mg Tablet.dr, 20 MG PO QDAY for 90 Days, #90 TAB.SR Prov:ALAINA VALENCIA MD 01/02/18 Polysaccharide Iron Complex (POLY-IRON) 150 Mg Cap, 150 MG PO daily , #90 CAP 4 Refills Prov:ALAINA VALENCIA MD 08/08/17 Carvedilol (CARVEDILOL) 25 Mg Tablet, 1 TAB PO BID for 90 Days, #180 TAB 4 Refills Prov:ALAINA VALENCIA MD 05/09/17 Reported Medications Amiodarone Hcl (AMIODARONE HCL) 200 Mg Tablet, 1 TAB PO QDAY TAKE 1 TAB PO BID FOR 4 WEEKS, THEN 1 TAB PO QD THEREAFTER 03/28/18 Furosemide (FUROSEMIDE) 80 Mg Tablet, 1 TAB PO QAM, TAB 01/16/18 Oxygen (Oxygen) 2 L Inha, 3 L INH 3 L continuously 01/08/10 Discontinued Reported Medications Potassium Chloride (POTASSIUM CHLORIDE) 20 Meq Tab.er.prt, 1 TAB PO QDAY 03/28/18 Apixaban (ELIQUIS) 5 Mg Tablet, 1 TAB PO BID 03/28/18 Nystatin 100,000 Unit/Gm Top Powder (NYSTATIN 100,000 UNIT/GM TOP POWDER) 15 Gm Powder, 1 KRISHAN TP BID, TUBE Apply to chest and perineum bid 01/16/18 Discontinued Scripts Ipratropium/Albuterol Sulfate (IPRAT-ALBUT 0.5-3(2.5) MG/3 ML) 3 Ml Ampul.neb, 1 VIAL IH TID for 30 Days, #90 INH 4 Refills Prov:ALAINA VALENCIA MD 11/09/17 Apixaban (ELIQUIS) 5 Mg Tablet, 1 TAB PO BID for 30 Days, #60 TAB 4 Refills Prov:ALAINA VALENCIA MD 01/25/18 Allergies: Coded Allergies: peanut (Verified Adverse Reaction, Unknown, Prostate Swells, 03/28/18) Patient History: FH: MA (myocardial infarction) FATHER MOTHER FH: diabetes mellitus BROTHER OR SISTER BROTHER OR SISTER BROTHER OR SISTER BROTHER OR SISTER BROTHER OR SISTER BROTHER OR SISTER CHILD Hx Smoking: Yes (40yrs ago) Smoking Status: Former Smoker Exposure to Second Hand Smoke?: No Caffeine Intake: Coffee Caffeine/Cups Per Day: 1 cup per day Hx Alcohol Use: No Hx Substance Use Disorder: No Social Drug Use: Never Review of Systems All Systems Reviewed/Normal: Yes, Except as Noted Constitutional: No Fever, No Chills Neurological: Weakness Gastrointestinal: Other (BRBPR) Exam Vital Signs Vital Signs Date Time Temp Pulse Resp B/P (MAP) Pulse Ox O2 Delivery O2 Flow Rate FiO2 03/28/18 21:18 98.7 89 18 121/67 (85) 97 Nasal Cannula 3.5 General Appearance: Alert, Awake, No Acute Distress, Afebrile Neuro: No Gross deficits ENT: Normal Cardiovascular: Other (irregularly irregular) Respiratory: No Respiratory Distress GI: Abd Soft and Non-Tender (+ FOBT) Extremities: Soft and Non Tender, Warm, Pulses, Perfused, Edema (wraps on BLE) Integumentary: Skin Intact without Lesion / Mass Assessment and Plan Problems: (1) Lesion of colon Assessment & Plan: Colonoscopy to further evaluate, Dr Covington consulted. (2) Lower GI bleeding Status: Acute Assessment & Plan: Consult Dr Covington, colonoscopy . Will recheck H&H if below 8 transfuse. Unclear what the lesion is on CT scan. (3) Afib Status: Chronic Assessment & Plan: Holding chronic Eliquis. (4) STEPHANIE treated with BiPAP Status: Chronic Assessment & Plan: BiPAP ordered. (5) Chronic systolic heart failure Status: Chronic Assessment & Plan: Continue Lasix, carvedilol. Venous Thromboembolism Antithrombotics Is Pt On Any Antithrombotics?: No Exam Sepsis Risk: No Definite Risk MCCOLLUM DOMINIC VALERIO DO Mar 28, 2018 22:33
[2018-03-28] MEDS: ALBUTEROL/IPRATROPIUM 3 ML NEB NEB PRN (23:32)
[2018-03-29] VITALS (14 sets, daily range): BP systolic 101–119; BP diastolic 63–88; Ht 152.4 cm; Wt 124.8 kg
[2018-03-29 06:03] LABS: PLATELET COUNT, AUTOMATED 250 K/uL (150-450)
[2018-03-29] MEDS: PANTOPRAZOLE SOD 20 MG TABEC PO SCH (06:06)
--- NOTE | 2018-03-29 07:35 | General Surgery Consultation ---
History of Present Illness Reason for Consult lesion near colon Chief Complaint sob History of Present Illness 77 yo m with chronic anemia. he has no current abd pain. he is sob. he states he did not sleep last night due to sob. he is on oxygen at home. he had brb per rectum recently. this is the only recent episode. he has had recent colonoscopies. the most recent he believes was about 1 yr ago in [place]. he states 3 vessels were cauterized at that time. no recent wt loss. History Home Meds Active Scripts Pantoprazole Sodium (PANTOPRAZOLE SODIUM) 20 Mg Tablet.dr, 20 MG PO QDAY for 90 Days, #90 TAB.SR Prov:ALAINA VALENCIA MD 01/02/18 Polysaccharide Iron Complex (POLY-IRON) 150 Mg Cap, 150 MG PO daily , #90 CAP 4 Refills Prov:ALAINA VALENCIA MD 08/08/17 Carvedilol (CARVEDILOL) 25 Mg Tablet, 1 TAB PO BID for 90 Days, #180 TAB 4 Refil ls Prov:ALAINA VALENCIA MD 05/09/17 Reported Medications Amiodarone Hcl (AMIODARONE HCL) 200 Mg Tablet, 1 TAB PO QDAY TAKE 1 TAB PO BID FOR 4 WEEKS, THEN 1 TAB PO QD THEREAFTER 03/28/18 Furosemide (FUROSEMIDE) 80 Mg Tablet, 1 TAB PO QAM, TAB 01/16/18 Oxygen (Oxygen) 2 L Inha, 3 L INH 3 L continuously 01/08/10 Discontinued Reported Medications Potassium Chloride (POTASSIUM CHLORIDE) 20 Meq Tab.er.prt, 1 TAB PO QDAY 03/28/18 Apixaban (ELIQUIS) 5 Mg Tablet, 1 TAB PO BID 03/28/18 Nystatin 100,000 Unit/Gm Top Powder (NYSTATIN 100,000 UNIT/GM TOP POWDER) 15 Gm Powder, 1 RKISHAN TP BID, TUBE Apply to chest and perineum bid 01/16/18 Discontinued Scripts Ipratropium/Albuterol Sulfate (IPRAT-ALBUT 0.5-3(2.5) MG/3 ML) 3 Ml Ampul.neb, 1 VIAL IH TID for 30 Days, #90 INH 4 Refills Prov:ALAINA VALENCIA MD 11/09/17 Apixaban (ELIQUIS) 5 Mg Tablet, 1 TAB PO BID for 30 Days, #60 TAB 4 Refills Prov:ALAINA VALENCIA MD 01/25/18 Allergies: Coded Allergies: peanut (Verified Adverse Reaction, Unknown, Prostate Swells, 03/28/18) Family History: FH: [place] (myocardial infarction) FATHER MOTHER FH: diabetes mellitus BROTHER OR SISTER BROTHER OR SISTER BROTHER OR SISTER BROTHER OR SISTER BROTHER OR SISTER BROTHER OR SISTER CHILD Review of Systems Constitutional: Other (10 pt ros neg except per hpi) Exam Vital Signs Vital Signs Date Time Temp Pulse Resp B/P (MAP) Pulse Ox O2 Delivery O2 Flow Rate FiO2 03/29/18 06:57 97.9 111 24 105/70 (82) 94 Nasal Cannula 03/28/18 23:30 3.0 General Appearance: Alert, Awake, Other (sob) Neuro: No Gross deficits Eyes: Other (per, eomi) ENT: Moist Mucous Membranes Neck: No Masses Cardiovascular: Other (tachycardic at 111) Respiratory: Other (somewhat labored breathing on oxygen) GI: Abd Soft and Non-Tender Integumentary: Skin Intact without Lesion / Mass, Generalized Fragile Skin Psych: Alert & Oriented X3, Appropriate Mood & Affect Medical Decision Making Data Points Result Diagram: 03/29/18 0538 03/29/18 0538 Assessment and Plan Problems: (1) Lower GI bleeding Status: Acute Assessment & Plan: 10 cm lesion near colon on ct. will need colonoscopy but not emergently. will discuss with hospitalist and optimize prior to colonoscopy. Venous Thromboembolism Antithrombotics Is Pt On Any Antithrombotics?: No TAMIKA CANADA Mar 29, 2018 07:35
[2018-03-29] MEDS: AMIODARONE 200 MG TAB PO SCH (08:26)
[2018-03-29] MEDS: FUROSEMIDE 80 MG TAB PO SCH (08:26)
[2018-03-29] MEDS: ONDANSETRON 4 MG/2 ML VIAL IVP PRN (08:26)
[2018-03-29] MEDS: CARVEDILOL 25 MG TABLET PO SCH ×2 (08:26→20:17)
[2018-03-29] MEDS: POLYSACCHARIDE IRON COM 150 MG PO SCH (08:26)
[2018-03-29] MEDS: PIPERACILLIN/TAZO*3.375GM VIAL 3.375 GM in NS(*) 0.9% 100 ML ADDVANT BAG 100 ML IVPB SCH ×3 (09:19→20:23)
--- NOTE | 2018-03-29 09:50 | NUR ---
Physical Therapy Impression Mr. Roland is currently an outpatient lymphedema patient of Dr. Kari Hutchins, PT, DPT who last saw Pt on 03/27/18. PT ordered for LE edema in inpatient setting. This PT was present with Cierra Magana PTA to remove lymphedema dressing and discuss plan for LE edema/lymphedema to be managed per OP plan of care set forth by Dr. Kari Shea, PT, DPT. Cierra Magana PTA to replace dressing per OP plan of care. This PT will be available for consult if needed. Physical Therapy Goals 1. Manage B LE edema per OP protocol. Patient's Goals
[2018-03-29] MEDS ORDERED: NS(*) 0.9% 250 ML BAG 250 ML ONE (10:54)
--- NOTE | 2018-03-29 12:28 | Hospitalist Progress Note ---
Subjective Progress Notes Subjective He reports feeling less dyspneic. No BRBPR or melena. Physical Exam Vital Signs Date Time Temp Pulse Resp B/P (MAP) Pulse Ox O2 Delivery O2 Flow Rate FiO2 03/29/18 12:09 97.7 81 20 116/88 03/29/18 09:55 94 Nasal Cannula 3.0 Intake and Output0 03/29/18 07:00 Intake Total 1250 ml Output Total 410 ml Balance 840 ml Intake Oral 1000 ml Blood Product 250 ml Output Urine Total 410 ml # Voids 3 General Appearance: Alert, Awake Cardiovascular: Other (Distant tones somewhat irregular) Respiratory: Other (fairly clear decreased breath sounds at bases) Chest: No Tenderness, Other (pacemaker/defibrillator left upper chest) GI: Other (Soft/he does report some mild tenderness with palpation over lower abdomen/BS present) Extremities: Warm, Perfused, Edema (1+ extending onto both thighs) Integumentary: Generalized Fragile Skin Psych: Alert & Oriented X3 Result Diagram: 03/29/1853703/29/18537 Assessment and Plan Problems: (1) Lesion of colon Status: Acute Assessment & Plan: Discussed with Dr. Covington. Rather unlikely Mr. Roland has developed a large mass in the past year. He has had two colonoscopies in the past 16-18 months, both of which did not show intraluminal mass. I would suspect it may be more likely he has an acute inflammatory process, possibly diverticular abscess. He does have an elevated WBC count. He is now on IV Zosyn. Unfortunately, Mr. Roland would not be a very good surgical risk if it came to that. Will plan on re-check CT scan in a day or two to see if any change (sooner if any problems). Dr. Covington will be following along closely as well. (2) Lower GI bleeding Status: Acute Assessment & Plan: It does not appear he is acutely bleeding, but does have low Hgb/Hct. He did come up with the two units of PRBC. Due to his multiple concomitant medical problems, would like to transfuse an additional 2 units PRBC today. Watch Hgb/Hct closely. Unclear what the lesion is on CT scan, but suspect it may be an acute inflammatory process. (3) Afib Status: Chronic Assessment & Plan: His chronic Eliquis was stopped as an outpatient a few days ago. (4) STEPHANIE treated with BiPAP Status: Chronic Assessment & Plan: Continue his usual BiPAP. (5) Chronic systolic heart failure Status: Chronic Assessment & Plan: Will continue his usual Lasix, carvedilol for now. try to optimize his status in case surgery was needed. Transfuse an additional 2 units PRBC as noted above. Exam Sepsis Risk: No Definite Risk LEIGH ANN POMPA MD Mar 29, 2018 12:28
[2018-03-29] MEDS ORDERED: APIX5TAB PO (13:44)
[2018-03-29] MEDS: ALBUTEROL/IPRATROPIUM 3 ML NEB NEB PRN (13:46)
[2018-03-29] MEDS: ACETAMINOPHEN 325 MG TAB PO PRN (14:48)
[2018-03-30 03:01] VITALS: BP 104/67
[2018-03-30] MEDS: PIPERACILLIN/TAZO*3.375GM VIAL 3.375 GM in NS(*) 0.9% 100 ML ADDVANT BAG 100 ML IVPB SCH ×4 (03:01→20:50)
[2018-03-30] MEDS: ALBUTEROL/IPRATROPIUM 3 ML NEB NEB PRN ×2 (03:12→17:41)
[2018-03-30] MEDS: PANTOPRAZOLE SOD 20 MG TABEC PO SCH (05:25)
[2018-03-30 06:04] LABS: PLATELET COUNT, AUTOMATED 378 K/uL (150-450)
--- NOTE | 2018-03-30 07:40 | General Surgery Progress Note ---
Subjective Progress Notes Subjective feels better today. slept better and feels he is breathing better. no abd pain. Physical Exam Vital Signs Date Time Temp Pulse Resp B/P (MAP) Pulse Ox O2 Delivery O2 Flow Rate FiO2 03/30/18 03:13 80 22 03/30/18 03:10 94 Nasal Cannula 3.5 03/30/18 03:01 97.9 104/67 (79) Intake and Output 03/30/18 07:00 Intake Total 1180 ml Output Total 650 ml Balance 530 ml Intake Oral 470 ml IV Total 210 ml Blood Product 500 ml Output Urine Total 650 ml # Voids 2 General Appearance: No Acute Distress, Other (looks more comfortable today) Respiratory: Other (breathing better) GI: Other (s/nttp) Result Diagram: 03/30/18 0541 03/30/18 0541 Assessment and Plan Problems: (1) Lower GI bleeding Status: Acute Assessment & Plan: 03/29/18: 10 cm lesion near colon on ct. will need colonoscopy but not emergently. will discuss with hospitalist and optimize prior to colonoscopy. 03/30/18: breathing easier today but rate still 22. wbc 10.7. hb 10.4. cont abx. will discuss with hospitalist re colonoscopy. Exam Sepsis Risk: No Definite Risk TAMIKA CANADA Mar 30, 2018 07:40
[2018-03-30 07:53] VITALS: BP 102/68
[2018-03-30] MEDS: POLYSACCHARIDE IRON COM 150 MG PO SCH (08:05)
[2018-03-30] MEDS: FUROSEMIDE 80 MG TAB PO SCH (08:05)
[2018-03-30] MEDS: CARVEDILOL 25 MG TABLET PO SCH ×2 (08:05→20:50)
[2018-03-30] MEDS: AMIODARONE 200 MG TAB PO SCH (08:05)
--- NOTE | 2018-03-30 10:45 | Hospitalist Progress Note ---
Subjective Progress Notes Subjective This patient was admitted for GI bleed and possible diverticulitis. He had no acute events overnight. Patient Complains of: Cardiovascular: No: Chest Pain Respiratory: No: Shortness of Breath Physical Exam Vital Signs Date Time Temp Pulse Resp B/P (MAP) Pulse Ox O2 Delivery O2 Flow Rate FiO2 03/30/18 07:53 97.4 77 16 102/68 (79) 90 Nasal Cannula 4.0 Intake and Output 03/30/18 07:00 Intake Total 1180 ml Output Total 650 ml Balance 530 ml Intake Oral 470 ml IV Total 210 ml Blood Product 500 ml Output Urine Total 650 ml # Voids 2 Cardiovascular: Regular Rate and Rhythm Respiratory: Clear to Auscultation GI: Other (Mild tenderness in left lower abdomen.) Extremities: No Edema Integumentary: No Cyanosis Result Diagram: 03/30/1854003/30/18540 Assessment and Plan Problems: (1) Lesion of colon Status: Acute Assessment & Plan: A lesion was noted in the sigmoid colon, and this was reported to be concerning for malignancy. This was discussed with Dr. Covington. It is throught to be unlikely that he has developed a large mass in the past year. He has had two colonoscopies in the past 16-18 months, both of which did not show intraluminal mass. I would suspect it may be more likely he has an acute inflammatory process, possibly diverticular abscess. He does have an elevated WBC count. He is now on IV Zosyn. Unfortunately, Mr. Roland would not be a very good surgical risk if it came to that. Will plan on re-check CT scan in a day or two to see if any change (sooner if any problems). Dr. Covington will be following along closely as well. (2) Lower GI bleeding Status: Acute Assessment & Plan: It does not appear he is acutely bleeding, but does have low Hgb/Hct. (3) Afib Status: Chronic Assessment & Plan: His chronic Eliquis was stopped as an outpatient a few days ago. (4) STEPHANIE treated with BiPAP Status: Chronic Assessment & Plan: Continue his usual BiPAP. (5) Chronic systolic heart failure Status: Chronic Assessment & Plan: Will continue his usual Lasix, carvedilol for now. try to o ptimize his status in case surgery was needed. Transfuse an additional 2 units PRBC as noted above. (6) Diverticulitis Assessment & Plan: He is being treated for presumptive diverticulitis. He is on Zosyn. (7) ANEMIA, UNSPECIFIED Assessment & Plan: He did receive 2 units of red cells yesterday. His counts increased appropriately. Exam Sepsis Risk: No Definite Risk EUGENIO MENDEZ DO Mar 30, 2018 10:44
[2018-03-30 11:04] VITALS: BP 119/72
[2018-03-30 14:45] VITALS: BP 123/67
--- NOTE | 2018-03-30 15:48 | NUR ---
Physical Therapy Impression PT subjective evaluation complete, pt sitting at EOB but refused further mobility at this time. Pt lives in senior housing with all needs on one level. PT encouraged pt to mobilize with nursing staff, PT will f/u 03/31/18. Physical Therapy Goals 1: Pt to complete bed mobility with Sommer 2: Pt to complete transfers with SBA and RW 3: Pt to ambulate 150' with SBA and RW Patient's Goals
[2018-03-30 19:30] VITALS: BP 125/77
[2018-03-30] MEDS: ONDANSETRON 4 MG/2 ML VIAL IVP PRN (20:03)
[2018-03-30] MEDS: ACETAMINOPHEN 325 MG TAB PO PRN (21:22)
[2018-03-30 23:29] VITALS: BP 112/74
[2018-03-31] MEDS: PIPERACILLIN/TAZO*3.375GM VIAL 3.375 GM in NS(*) 0.9% 100 ML ADDVANT BAG 100 ML IVPB SCH ×3 (03:09→14:30)
[2018-03-31 03:10] VITALS: BP 109/73
[2018-03-31] MEDS: ONDANSETRON 4 MG/2 ML VIAL IVP PRN ×2 (04:30→14:31)
[2018-03-31] MEDS: PANTOPRAZOLE SOD 20 MG TABEC PO SCH (05:03)
[2018-03-31] MEDS: ACETAMINOPHEN 325 MG TAB PO PRN (05:03)
[2018-03-31 06:30] LABS: PLATELET COUNT, AUTOMATED 360 K/uL (150-450)
[2018-03-31 07:27] VITALS: BP 105/70
[2018-03-31] MEDS: AMIODARONE 200 MG TAB PO SCH (08:18)
[2018-03-31] MEDS: POLYSACCHARIDE IRON COM 150 MG PO SCH (08:18)
[2018-03-31] MEDS: FUROSEMIDE 80 MG TAB PO SCH (08:18)
[2018-03-31] MEDS: CARVEDILOL 25 MG TABLET PO SCH (08:18)
--- NOTE | 2018-03-31 08:22 | General Surgery Progress Note ---
Subjective Progress Notes Subjective complains of bloating, no NV, + flatus, no stool Physical Exam Vital Signs Date Time Temp Pulse Resp B/P (MAP) Pulse Ox O2 Delivery O2 Flow Rate FiO2 03/31/18 07:27 79 105/70 (82) 95 Nasal Cannula 4.0 03/31/18 03:10 98.3 22 Intake and Output 03/31/18 07:00 Intake Total 2612 ml Output Total 500 ml Balance 2112 ml Intake Oral 580 ml IV Total 2032 ml Output Urine Total 500 ml # Voids 1 General Appearance: Alert, Awake, No Acute Distress, Afebrile Neuro: No Gross deficits Respiratory: No Respiratory Distress, Clear to Auscultation, Other (poor air exchange) GI: Other (distended, firm without peritoneal signs) Musculoskeletal: No Weakness/Pain Integumentary: Skin Intact without Lesion / Mass Psych: Alert & Oriented X3, Appropriate Mood & Affect Result Diagram: 03/31/18 0600 03/31/18 0600 Assessment and Plan Problems: (1) Lower GI bleeding Status: Acute Assessment & Plan: 03/29/18: 10 cm lesion near colon on ct. will need colonoscopy but not emergently. will discuss with hospitalist and optimize prior to colonoscopy. 03/30/18: breathing easier today but rate still 22. wbc 10.7. hb 10.4. cont abx. will discuss with hospitalist re colonoscopy. 03/31/09: etiology of lesion unclear, may need repeat CT scan with consideration of percutaneous drain vs operative resection. Doubt he can tolerate a prep for colonoscopy or colon resection at this time. Limited sips clear liquids only until improved bowel function. With his dyspnea at rest, he is at high risk for any aggressive intervention at this point. Time Spent: > 30 min Exam Sepsis Risk: No Definite Risk MEL SKY MD Mar 31, 2018 08:22
--- NOTE | 2018-03-31 10:00 | NUR ---
Physical Therapy Impression Functionally pt required increase from 4-6 l/Min to tolerate increased activity. Pt notes he is feeling much worse and abdomen is very distended today. Increased work of breathing noted during session as well. Following session, consulted with lymphedema specialist regarding compression to LE's with today's increase in symptoms. Compromise made to complete lymphedema drainage massage and only apply light PEACE hose stockings. Will re-eval ability to tolerate compression of LE's on Tuesday. Physical Therapy Goals 1: Pt to complete bed mobility with Sommer 2: Pt to complete transfers with SBA and RW 3: Pt to ambulate 150' with SBA and RW Patient's Goals
[2018-03-31 11:20] VITALS: BP 106/79
--- NOTE | 2018-03-31 13:04 | RADIOLOGY IMAGING REPORT ---
FACILITY: [facility] - [place] PATIENT NAME: Shaggy Roland : 1940 MR: [id number] V: [id number] EXAM DATE: ORDERING PHYSICIAN: DOMINIC VALERIO TECHNOLOGIST: Location: [facility] - [place] Patient: Shaggy Roland : 1940 Visit/Account:[id number] Date of Sevice: 03/31/2018 CT ABDOMEN PELVIS W/O CON HISTORY: sigmoid lesion surveillance TECHNIQUE: Axial images acquired through the abdomen/pelvis. Coronal and sagittal reformatting also performed. No IV contrast administered.Dose Lowering Technique One of the following dose optimization techniques was utilized in the performance of this exam: Autom ated exposure control; adjustment of the mA and/or kV according to the patient's size; or use of an i terative reconstruction technique. Specific details can be referenced in the facility's radiology C T exam operational policy. COMPARISON: March 28, 2018 FINDINGS: Study is limited due to extensive motion artifact Visualized lung bases: There is been a slight increase in the small right pleural effusion and right basilar airspace consolidation. Small left pleural effusion and left basilar airspace consolidation appears relatively unchanged. The anterior mediastinal ovoid calcification which may represent a ly mph node is again noted. Left ventricular electrode is present similar to the prior study . Cardio megaly Hepatobiliary: Calcifications in the hepatic dome again seen. 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 Accessory splenules are present in the left up per quadrant Adrenals: Negative. Pancreas: Negative. Kidneys ureters and bladder: Negative. Genitalia: The prostate gland is enlarged containing calcifications and impinges upon the floor the bladder GI: The previously noted stool and gas-containing abnormal focally dilated sigmoid colon has slightl y increased in size in AP dimension now measuring 13.6 cm as opposed to 12.3 cm previously the 10 cm with appears unchanged. The craniocaudad dimension previously measured 10.7 currently measures 8.81 measured in the same location wall thickening remains unchanged as does the mild surrounding fat stra nding scarring and fat necrosis extending to the dome of the bladder appears stable. 2.2 cm lipoma w ithin the sigmoid colon appears unchanged Extensive diverticulosis throughout the sigmoid and descending colon again identified. Vessels/spaces/nodes: Negative. Bones/soft tissues: Spondylotic changes of the thoracolumbar spine again seen Additional findings: None pertinent. IMPRESSION: The abnormal stool and gas containing out pouching emanates off the sigmoid colon and has increased i n size in the AP dimension remains stable in width and slightly decreased in the craniocaudad dimensi on. The wall thickening and fat stranding appears unchanged. As previously noted an exophytic sigmo id colonic malignancy should be excluded. 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 Scarring fat necrosis just inferior to this finding appears to be tethered to the dome of the bladder and appears similar to the prior study Slight increase in small right pleural effusion and right basilar airspace consolidation Small left pleural effusion left basilar airspace consolidation appears relatively unchanged. Additional chronic findings as described Report Dictated By: Luma Mirza MD at 03/31/2018 12:41 PM Report E-Signed By: Luma Mirza MD at 03/31/2018 12:57 PM WSN:[email or web address]
--- NOTE | 2018-03-31 14:19 | Antimicrobial Stewardship ---
Antimicrobial Stewardship Empiricly appropriate: Yes Comment On Zosyn 3.375 gm iv q6h for possible acute inflammatory process of colon. Renal/Hepatic dosing: Yes (Will need to monitor SCr as it is 1.3 and pt has CrCl of 52 ml/min so adjustment in dosing may be necessary if renal function worsens.) Reviewed for Drug Interaction: Yes Monitored for Toxicities: Yes Comment Still with elevated WBC IV to PO Opportunity: No Determine cumulative duration: individualized MARC OLIVIA Mar 31, 2018 14:19
--- NOTE | 2018-03-31 14:40 | Hospitalist Progress Note ---
Subjective Progress Notes Subjective 77M admitted for GI bleed, diverticulitis. SONYA overnight. Patient Complains of: Neurological: Weakness Gastrointestinal: No Nausea, No Vomiting Physical Exam Vital Signs Date Time Temp Pulse Resp B/P (MAP) Pulse Ox O2 Delivery O2 Flow Rate FiO2 03/31/18 11:20 74 106/79 (88) 96 Nasal Cannula 4.0 03/31/18 03:10 98.3 22 Intake and Output 03/31/18 07:00 Intake Total 2612 ml Output Total 500 ml Balance 2112 ml Intake Oral 580 ml IV Total 2032 ml Output Urine Total 500 ml # Voids 1 General Appearance: Alert, Awake, No Acute Distress, Afebrile Neuro: No Gross deficits ENT: Normal Cardiovascular: Normal Rhythm & Peripheral Pulses Respiratory: No Respiratory Distress GI: Soft and Non-Tender Extremities: Soft and Non Tender, Warm, Pulses, Perfused Result Diagram: 03/31/18 0600 03/31/18 0600 Assessment and Plan Problems: (1) Lesion of colon Status: Acute Assessment & Plan: A lesion was noted in the sigmoid colon, and this was reported to be concerning for malignancy. This was discussed with Dr. Covington. It is thought to be unlikely that he has developed a large mass in the past year. He has had two colonoscopies in the past 16-18 months, both of which did not show intraluminal mass. I would suspect it may be more likely he has an acute inflammatory process, possibly diverticular abscess. He does have an elev ated WBC count. He is now on IV Zosyn. Unfortunately, Mr. Roland would not be a very good surgical risk if it came to that. Will re-check CT scan today, await surgical plan. Dr. Covington will be following along closely. (2) Lower GI bleeding Status: Acute Assessment & Plan: It does not appear he is acutely bleeding, but does have low Hgb/Hct. (3) Afib Status: Chronic Assessment & Plan: His chronic Eliquis was stopped as an outpatient a few days ago. (4) STEPHANIE treated with BiPAP Status: Chronic Assessment & Plan: Continue his usual BiPAP. (5) Chronic systolic heart failure Status: Chronic Assessment & Plan: Will continue his usual Lasix, carvedilol for now. try to optimize his status in case surgery was needed. Transfused an additional 2 units PRBC as noted above. (6) Diverticulitis Assessment & Plan: He is being treated for presumptive diverticulitis. He is on Zosyn. (7) ANEMIA, UNSPECIFIED Assessment & Plan: He did receive 2 units of red cells. His counts increased appropriately. Exam Sepsis Risk: No Definite Risk MCCOLLUM DOMINIC VALERIO DO Mar 31, 2018 14:40
[2018-03-31 15:16] VITALS: BP 111/78
--- NOTE | 2018-03-31 17:03 | Hospitalist Depart ---
Discharge Summary Reason for Hosp/Final Diag: (1) Lesion of colon Status: Acute Hospital Course & Plan: A exophytic lesion was noted in the sigmoid colon, and this was reported to be concerning for malignancy. This was discussed with Dr. Covington. It is thought to be unlikely that he has developed a large mass in the past year. He has had two colonoscopies in the past 16-18 months, both of which did not show intraluminal mass. I would suspect it may be more likely he has an acute inflammatory process, possibly diverticular abscess. He does have an elevated WBC count. He is now on IV Zosyn. Unfortunately, Mr. Roland would not be a very good surgical risk if it came to that. Repeat CT scan showed changes in the dimensions of the lesion apparently increasing in size. Dr. Covington will be following along closely. Dr Scott covering for Dr Covington believes the best course of action is placement of percutaneous drain, as no IR is available here transfer to [facility] arranged for evaluation by surgery there and further management of comorbidities by hospitalist team. (2) Lower GI bleeding Status: Acute Hospital Course & Plan: It does not appear he is acutely bleeding, but does have low Hgb/Hct. (3) Afib Status: Chronic Hospital Course & Plan: His chronic Eliquis was stopped as an outpatient a few days before admission. (4) STEPHANIE treated with BiPAP Status: Chronic Hospital Course & Plan: Continue his usual BiPAP. (5) Chronic systolic heart failure Status: Chronic Hospital Course & Plan: Will continue his usual Lasix, carvedilol for now. try to optimize his status in case surgery was needed. (6) Diverticulitis Hospital Course & Plan: He is being treated for presumptive diverticulitis. He is on Zosyn. (7) ANEMIA, UNSPECIFIED Hospital Course & Plan: He did receive 2 units of red cells. His counts increased appropriately. Departure Weight (Pounds): 275 Weight (Ounces): 2.0 Result Diagram: 03/31/1859903/31/[address] abdomen/pelvis 03.28.18 IMPRESSION: Abnormal 10 x 12 x 10.7 cm stool and gas containing outpouching emanates off the sigmoid colon and has increased in size. New wall thickening in this area. Is most concerning for an exophytic sigmoid colonic malignancy until proven otherwise. 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 Contrast enema or colonoscopy may be warranted for further evaluation. Scarring and fat necrosis just inferior to this finding appears to be tethered with the upper aspect of the bladder similar to prior. 03.31.18 IMPRESSION: The abnormal stool and gas containing out pouching emanates off the sigmoid colon and has increased in size in the AP dimension remains stable in width and slightly decreased in the craniocaudad dimension. The wall thickening and fat stranding appears unchanged. As previously noted an exophytic sigmoid colonic malignancy should be excluded. Other considerations would include a chronic fluid collection partially communicating with the sigmoid colon relating to chronic fistula. Scarring fat necrosis just inferior to this finding appears to be tethered to the dome of the bladder and appears similar to the prior study Slight increase in small right pleural effusion and right basilar airspace consolidation Small left pleural effusion left basilar airspace consolidation appears relatively unchanged. Condition: No Change Discharge: Other Facility Discharge Instructions Home Meds Active Scripts Pantoprazole Sodium (PANTOPRAZOLE SODIUM) 20 Mg Tablet.dr, 20 MG PO QDAY for 90 Days, #90 TAB.SR Prov:ALAINA VALENCIA MD 01/02/18 Polysaccharide Iron Complex (POLY-IRON) 150 Mg Cap, 150 MG PO daily , #90 CAP 4 Refills Prov:ALAINA VALENCIA MD 08/08/17 Carvedilol (CARVEDILOL) 25 Mg Tablet, 1 TAB PO BID for 90 Days, #180 TAB 4 Refills Prov:ALAINA VALENCIA MD 05/09/17 Reported Medications Amiodarone Hcl (AMIODARONE HCL) 200 Mg Tablet, 1 TAB PO QDAY TAKE 1 TAB PO BID FOR 4 WEEKS, THEN 1 TAB PO QD THEREAFTER 03/28/18 Furosemide (FUROSEMIDE) 80 Mg Tablet, 1 TAB PO QAM, TAB 01/16/18 Oxygen (Oxygen) 2 L Inha, 3 L INH 3 L continuously 01/08/10 Discontinued Reported Medications Apixaban (ELIQUIS) 5 Mg Tablet, 5 MG PO BID 03/29/18 Potassium Chloride (POTASSIUM CHLORIDE) 20 Meq Tab.er.prt, 1 TAB PO QDAY 03/28/18 Apixaban (ELIQUIS) 5 Mg Tablet, 1 TAB PO BID 03/28/18 Nystatin 100,000 Unit/Gm Top Powder (NYSTATIN 100,000 UNIT/GM TOP POWDER) 15 Gm Powder, 1 KRISHAN TP BID, TUBE Apply to chest and perineum bid 01/16/18 Discontinued Scripts Ipratropium/Albuterol Sulfate (IPRAT-ALBUT 0.5-3(2.5) MG/3 ML) 3 Ml Ampul.neb, 1 VIAL IH TID for 30 Days, #90 INH 4 Refills Prov:ALAINA VALENCIA MD 11/09/17 Apixaban (ELIQUIS) 5 Mg Tablet, 1 TAB PO BID for 30 Days, #60 TAB 4 Refills Prov:ALAINA VALENCIA MD 01/25/18 Activity: As Tolerated, With Walker Special Instructions: Current diet: sips/ice chips only. Currently on Zosyn for presumed diverticulitis. Venous Thromboembolism Antithrombotics Is Pt On Any Antithrombotics?: No DOMINIC BATISTA DO Mar 31, 2018 17:03
== END 2018-03-31 17:40 | disposition short-term general hospital (02) | DRG 392 ==
LOC: ER 17:24 → MED 19:49
PROVIDERS: ADMIT Internal Medicine; ATTEND Internal Medicine
PROC: 30233N1 Transfusion of Nonautologous Red Blood Cells into Peripheral Vein, Percutaneous Approach (ICD-10-PCS; principal; 2018-03-28)
DX: K57.20 Diverticulitis of large intestine with perforation and abscess without bleeding (principal); K92.1 Melena; I50.22 Chronic systolic (congestive) heart failure; I48.2 Chronic atrial fibrillation; G47.33 Obstructive sleep apnea (adult) (pediatric); D50.0 Iron deficiency anemia secondary to blood loss (chronic); J44.9 Chronic obstructive pulmonary disease, unspecified; I11.0 Hypertensive heart disease with heart failure; Z99.81 Dependence on supplemental oxygen; Z86.711 Personal history of pulmonary embolism; Z79.01 Long term (current) use of anticoagulants; Z85.828 Personal history of other malignant neoplasm of skin; Z90.49 Acquired absence of other specified parts of digestive tract; Z87.891 Personal history of nicotine dependence
CPT/HCPCS: 36415; 71046; 74176; 74177; 82040; 82247; 82274; 82310; 82374; 82435; 82565; 82947; 84075; 84132; 84155; 84295; 84450; 84460; 84520; 85014; 85018; 85025; 86140; 86850; 86900; 86901; 86920; 94640; 97161; 99284; J2405; J2543; J7030; J7050; P9016; Q9967

== ENCOUNTER → 2018-03-28 | Outpatient (CLI) | payer MEDICARE, OTHER ==
[2017-12-27 14:28] VITALS: BMI 36.3
[~2018-03-28] MED LIST changes: +ACETAMINOPHEN 325 MG TAB PO ONE; +LIDOCAINE/SOD BICARB 8.4% SYR ID PRN; +NS(*) 0.9% 500 ML BAG 500 ML IV PRN; +POTA20TA94 PO; +diphenhydrAMINE 25 MG CAP PO ONE
[2018-03-28 12:10] VITALS: BP 118/78
[2018-03-28 12:17] LABS: PLATELET COUNT, AUTOMATED 453 K/uL (150-450)
[2018-03-28 14:17] VITALS: BP 112/57
[2018-03-28 14:32] VITALS: BP 112/60
[2018-03-28 16:32] VITALS: BP 111/70
== END ==
LOC: SPU 11:48
PROVIDERS: ATTEND Nurse Practitioner Primary Care
DX: D64.9 Anemia, unspecified (principal); R11.0 Nausea
CPT/HCPCS: 85025; A9270; J7040; Q0163; 82040; 82247; 82310; 82374; 82435; 82565; 82947; 84075; 84132; 84155; 84295; 84450; 84460; 84520

== ENCOUNTER → 2018-03-31 | Outpatient (CLI) | payer MEDICARE, OTHER ==
[2018-03-29 12:52] VITALS: BMI 53.7
[~2018-03-31] MED LIST changes: +POTA20TA94 PO
== END ==
LOC: AMB 17:29
PROVIDERS: ATTEND Nurse Practitioner
DX: R10.84 Generalized abdominal pain (principal); R53.1 Weakness; K92.1 Melena; R09.02 Hypoxemia
CPT/HCPCS: A0425; A0426